=== PATIENT | female | born 1965 | race Caucasian/White ===

== ENCOUNTER 2019-10-21 00:23 | Inpatient (IN) | payer MEDICAID, OTHER ==
[~2019-10-21] VITALS: Ht 170.2 cm; Wt 100.5 kg
[2019-10-21] VITALS (19 sets, daily range): BP systolic 110–136; BP diastolic 73–91
[2019-10-21] MEDS ORDERED: LACTATED RINGERS 1,000 ML IV ONE (00:41)
--- NOTE | 2019-10-21 00:41 | ED Chest Pain ---
General Chief Complaint: Chest Pain Stated Complaint: JAW, HEAD, CP Nursing Triage Note: PT AMBULATE TO ROOM 07 WITH C/O CHEST PAIN STARTING X3 DAYS AGO, HEADACHE STARTING X3 WEEKS AGO. PT STATES THE HEADACHE HAS PROGRESSED TO HER CHEST. Nursing Sepsis Screen: No Definite Risk Source: patient Exam Limitations: no limitations History of Present Illness Date Seen by Provider: Oct 21, 2019 Time Seen by Provider: 00:21 Initial Comments Patient presents to ER by private conveyance with chief complaint of several weeks of having a global, constant headache that has poorly responded Tylenol or NSAIDs. She says in the past 2 days she started having pain in her jaw shoulder neck and back as well as chest. She's had a productive cough and chills but has not checked for an objective fever. She's not had any diarrhea nausea or vomiting. She has a history of hypertension but no diabetes or hyperlipidemia. She is on Rexulti and does not recall the rest of her medications or medical history. She has not seen anybody for this headache or chest pain yet. She f [facility] with [facility]. Allergies and Home Medications Allergies Coded Allergies: No Known Drug Allergies (Unverified , 10/21/19) Patient Home Medication List Home Medication List Reviewed: Yes Review of Systems Review of Systems Constitutional: chills; No diaphoresis, No fever; malaise EENTM: No Blurred Vision, No Double Vision Respiratory: Cough; Denies Shortness of Air Cardiovascular: See HPI, Chest Pain; Denies Edema, Denies Irregular Heart Rate, Denies Lightheadedness, Denies Palpitations, Denies Syncope Gastrointestinal: Denies Abdomen Distended, Denies Abdominal Pain, Denies Constipated, Denies Diarrhea, Denies Nausea, Denies Poor Fluid Intake, Denies Vomiting Genitourinary: Denies Burning, Denies Discharge Musculoskeletal: No back pain, No joint pain Skin: No pruritus, No rash Psychiatric/Neurological: Emotional Problems, Headache; Denies Numbness, Denies Paresthesia, Denies Seizure All Other Systems Reviewed Negative Unless Noted: Yes Past Qzoevvv-Avprbu-Hrtdpc Hx Patient Social History Alcohol Use: Denies Use Recreational Drug Use: No Smoking Status: Current Everyday Smoker Type Used: Cigarettes Recent Foreign Travel: No Contact w/Someone Who Travel: No Recent Infectious Disease Expo: No Physical Exam Vital Signs Vital Signs - First Documented 10/21/19 00:26 Temp 36.8 Pulse 113 Resp 24 B/P (MAP) 145/94 (111) O2 Delivery Room Air Capillary Refill : Less Than 3 Seconds Height, Weight, BMI Height: '" Weight: lbs. oz. kg; 31.00 BMI Method: General Appearance: Anxious, Mild Distress HEENT: PERRL/EOMI, TMs Normal; No Moist Mucous Membranes Neck: Full Range of Motion, Normal Inspection, Non Tender, Supple Respiratory: Chest Non Tender, Lungs Clear, Normal Breath Sounds, No Accessory Muscle Use, No Respiratory Distress Cardiovascular: Regular Rate, Rhythm, No Edema, No Gallop, Normal Peripheral Pulses Gastrointestinal: Normal Bowel Sounds, No Organomegaly, Non Tender, Soft Extremity: Normal Capillary Refill, Normal Inspection, Normal Range of Motion, No Pedal Edema Neurologic/Psychiatric: Alert, Oriented x3, No Motor/Sensory Deficits, Normal Mood/Affect, advertising director II-XII Norm as Tested Skin: Normal Color, Warm/Dry Progress/Results/Core Measures Results/Orders Lab Results Laboratory Tests Test 10/21/19 00:37 10/21/19 01:02 Range/Units White Blood Count 17.4 H 4.3-11.0 10^3/uL Red Blood Count 4.38 4.35-5.85 10^6/uL Hemoglobin 12.9 11.5-16.0 G/DL Hematocrit 41 35-52 % Mean Corpuscular Volume 94 80-99 FL Mean Corpuscular Hemoglobin 30 25-34 PG Mean Corpuscular Hemoglobin Concent 32 32-36 G/DL Red Cell Distribution Width 14.2 10.0-14.5 % Platelet Count 481 H 130-400 10^3/uL Mean Platelet Volume 9.3 7.4-10.4 FL Neutrophils (%) (Auto) 79 H 42-75 % Lymphocytes (%) (Auto) 11 L 12-44 % Monocytes (%) (Auto) 7 0-12 % Eosinophils (%) (Auto) 3 0-10 % Basophils (%) (Auto) 1 0-10 % Neutrophils # (Auto) 13.7 H 1.8-7.8 X 10^3 Lymphocytes # (Auto) 1.8 1.0-4.0 X 10^3 Monocytes # (Auto) 1.2 H 0.0-1.0 X 10^3 Eosinophils # (Auto) 0.5 H 0.0-0.3 10^3/uL Basophils # (Auto) 0.1 0.0-0.1 10^3/uL Neutrophils % (Manual) 81 % Lymphocytes % (Manual) 9 % Monocytes % (Manual) 8 % Eosinophils % (Manual) 2 % Prothrombin Time 12.6 12.2-14.7 SEC INR Comment 0.9 0.8-1.4 Activated Partial Thromboplast Time 26 24-35 SEC Sodium Level 140 135-145 MMOL/L Potassium Level 4.4 3.6-5.0 MMOL/L Chloride Level 105 98-107 MMOL/L Carbon Dioxide Level 21 21-32 MMOL/L Anion Gap 14 5-14 MMOL/L Blood Urea Nitrogen 11 7-18 MG/DL Creatinine 0.90 0.60-1.30 MG/DL Estimat Glomerular Filtration Rate > 60 BUN/Creatinine Ratio 12 Glucose Level 127 H 70-105 MG/DL Calcium Level 9.0 8.5-10.1 MG/DL Corrected Calcium 9.2 8.5-10.1 MG/DL Magnesium Level 2.1 1.6-2.4 MG/DL Total Bilirubin 0.3 0.1-1.0 MG/DL Aspartate Amino Transf (AST/SGOT) 15 5-34 U/L Alanine Aminotransferase (ALT/SGPT) 19 0-55 U/L Alkaline Phosphatase 71 40-136 U/L Myoglobin 68.4 10.0-92.0 NG/ML Troponin I 1.627 *H <0.028 NG/ML Total Protein 7.0 6.4-8.2 GM/DL Albumin 3.7 3.2-4.5 GM/DL My Orders Orders - JENNIFER STEPHENSON Ekg Tracing (10/21/19 00:25) Continuous Ekg Monitoring (10/21/19 00:25) Ed Iv/Invasive Line Start (10/21/19 00:41) Lactated Ringers (Lr 1000 Ml Iv Solution (10/21/19 00:41) Diphenhydramine Injection (Benadryl Inje (10/21/19 00:45) Prochlorperazine Injection (Compazine In (10/21/19 00:45) Aspirin Chewable Tablet (Baby Aspirin Ch (10/21/19 00:45) Cbc With Automated Diff (10/21/19 00:41) Magnesium (10/21/19 00:41) Chest 1 View, Ap/Pa Only (10/21/19 00:41) Comprehensive Metabolic Panel (10/21/19 00:41) Myoglobin Serum (10/21/19 00:41) Protime With Inr (10/21/19 00:41) Partial Thromboplastin Time (10/21/19 00:41) O2 (10/21/19 00:41) Monitor-Rhythm Ecg Trace Only (10/21/19 00:41) Lipid Panel (10/22/19 06:00) Ed Iv/Invasive Line Start (10/21/19 00:41) Influenza A And B Antigens (10/21/19 00:51) Manual Differential (10/21/19 00:37) Troponin I (10/21/19 01:02) Fentanyl Injection (Sublimaze Injection (10/21/19 01:15) Enoxaparin Injection (Lovenox Injection) (10/21/19 01:45) Clopidogrel Tablet (Plavix Tablet) (10/21/19 01:45) Nitroglycerin 0.4 Mg Btl 25's (Nitrostat (10/21/19 02:00) Lorazepam Injection (Ativan Injection) (10/21/19 02:00) Medications Given in ED Current Medications Medications Dose Ordered Sig/Elaina Route Start Time Stop Time Status Last Admin Dose Admin Aspirin 324 mg ONCE ONCE PO 10/21/19 00:45 10/21/19 00:46 DC 10/21/19 00:52 324 MG Clopidogrel Bisulfate 300 mg ONCE ONCE PO 10/21/19 01:45 10/21/19 01:46 DC 10/21/19 01:58 300 MG Diphenhydramine HCl 25 mg ONCE ONCE IVP 10/21/19 00:45 10/21/19 00:46 DC 10/21/19 00:52 25 MG Enoxaparin Sodium 90 mg ONCE ONCE SC 10/21/19 01:45 10/21/19 01:46 DC 10/21/19 01:57 90 MG Fentanyl Citrate 50 mcg ONCE ONCE IVP 10/21/19 01:15 10/21/19 01:16 DC 10/21/19 01:21 50 MCG Lactated Ringer's 1,000 ml @ 0 mls/hr Q0M ONCE IV 1/6/20 00:41 10/21/19 00:46 DC 10/21/19 00:53 999 MLS/HR Prochlorperazine Edisylate 10 mg ONCE ONCE IV 10/21/19 00:45 10/21/19 00:46 DC 10/21/19 00:52 10 MG Vital Signs/I&O 10/21/19 10/21/19 00:26 00:31 Temp 36.8 Pulse 113 Resp 24 B/P (MAP) 145/94 (111) O2 Delivery Room Air Room Air Blood Pressure Mean: 111 Progress Progress Note : Time: 00:46 Progress Note Influenza swab as she seems to have pain everywhere. We'll give her a liter fluids, Compazine, Benadryl for her headache. We'll hold off on NSAIDs until we see a negative troponin. EKG is normal with tachycardia. 2 days of chest pain if she has a negative troponin and no history of coronary disease can plan to give some Toradol. Suspects she has a viral illness and poor fluid intake. No headache red flag signs at this time. Initial ECG Impression Date: Oct 21, 2019 Initial ECG Impression Time: 00:28 Initial ECG Rate: 105 Initial ECG Rhythm: S.Tach Initial ECG Intervals: Normal Initial ECG Impression: Normal Initial ECG Comparisson: No Previous ECG Available Comment Sinus tachycardia without clinically relevant ST elevation or depression. Diagnostic Imaging Diagonstic Imaging: Xray Plain Films/CT/US/NM/MRI: chest (1v) Comments Unremarkable one view chest x-ray. Reviewed: Reviewed by Me Departure Communication (Admissions) Time/Spoke to Admitting Phy: 01:48 Discussed case lab EKG imaging findings with Dr. Cintron and she agrees to observe the patient. Time/Spoke to Consulting Phy: 01:45 Discussed case lab imaging findings with Dr. Cortez and he would do Plavix, aspirin and one time dose of Lovenox and he will see the patient in the morning. Impression Primary Impression: Non-STEMI (non-ST elevated myocardial infarction) Additional Impression: Headache Qualified Codes: R51 - Headache Disposition: ADMITTED INPATIENT Condition: Stable Admissions Decision to Admit Reason: Admit from ER (General) Decision to Admit/Date: Oct 21, 2019 Time/Decision to Admit Time: 01:45 Departure-Patient Inst. Referrals: [facility] (PCP/Family) Primary Care Physician JENNIFER STEPHENSON Oct 21, 2019 00:41
[2019-10-21] MEDS ORDERED: ASPIRIN 81 MG CHEW (CHILDREN'S ASA) PO ONE (00:45)
[2019-10-21] MEDS ORDERED: PROCHLORPERAZINE 10 MG/2ML INJ (COMPAZINE) IV ONE (00:45)
[2019-10-21] MEDS ORDERED: diphenhydrAMINE 50 MG/ML INJ (BENADRYL) IVP ONE (00:45)
[2019-10-21 00:51] LABS: BASOPHILS # (AUTO) 0.1 10^3/uL (0.0-0.1); BASOPHILS % (AUTO) 1 % (0-10); EOSINOPHILS # (AUTO) 0.5 10^3/uL (0.0-0.3); EOSINOPHILS % (AUTO) 3 % (0-10); HEMATOCRIT 41 % (35-52); HEMOGLOBIN 12.9 G/DL (11.5-16.0); LYMPHOCYTES # (AUTO) 1.8 X 10^3 (1.0-4.0); LYMPHOCYTES % (AUTO) 11 % (12-44); MEAN CORPUSCULAR HEMOGLOBIN 30 PG (25-34); MEAN CORPUSCULAR HGB CONC 32 G/DL (32-36); MEAN CORPUSCULAR VOLUME 94 FL (80-99); MEAN PLATELET VOLUME 9.3 FL (7.4-10.4); MONOCYTES # (AUTO) 1.2 X 10^3 (0.0-1.0); MONOCYTES % (AUTO) 7 % (0-12); NEUTROPHILS # (AUTO) 13.7 X 10^3 (1.8-7.8); NEUTROPHILS % (AUTO) 79 % (42-75); PLATELET COUNT 481 10^3/uL (130-400); RED CELL DISTRIBUTION WIDTH 14.2 % (10.0-14.5); WHITE BLOOD COUNT 17.4 10^3/uL (4.3-11.0)
[2019-10-21] MEDS ORDERED: fentaNYL INJECTION 100 MCG/2 ML AMP IVP ONE ×2 (01:15→02:30)
[2019-10-21 01:18] LABS: INR 0.9 (0.8-1.4); PROTHROMBIN TIME PATIENT 12.6 SEC (12.2-14.7)
[2019-10-21 01:27] LABS: ALANINE AMINOTRANSFERASE 19 U/L (0-55); ALBUMIN 3.7 GM/DL (3.2-4.5); ALKALINE PHOSPHATASE 71 U/L (40-136); BILIRUBIN,TOTAL 0.3 MG/DL (0.1-1.0); BUN/CREATININE RATIO 12; CARBON DIOXIDE 21 MMOL/L (21-32); CHLORIDE 105 MMOL/L (98-107); GFR ESTIMATED > 60; GLUCOSE 127 MG/DL (70-105); MAGNESIUM 2.1 MG/DL (1.6-2.4); POTASSIUM 4.4 MMOL/L (3.6-5.0); SODIUM 140 MMOL/L (135-145)
[2019-10-21] MEDS ORDERED: CLOPIDOGREL 300 MG (PLAVIX) TABLET PO ONE (01:45)
[2019-10-21] MEDS ORDERED: ENOXAPARIN 100 MG/1 ML (LOVENOX) SYR SC ONE (01:45)
[2019-10-21 01:51] LABS: EOSINOPHILS % (MANUAL) 2 %; LYMPHOCYTES % (MANUAL) 9 %; MONOCYTES % (MANUAL) 8 %; NEUTROPHILS % (MANUAL) 81 %
[2019-10-21] MEDS ORDERED: LORazepam INJ 2 MG/ML (ATIVAN) VIAL IVP ONE (02:00)
[2019-10-21] MEDS ORDERED: NITROGLYCERIN 0.4 MG SL TABS BTL 25'S SL PRN ×2 (02:00→05:00)
[2019-10-21] MEDS: fentaNYL INJECTION 100 MCG/2 ML AMP IVP PRN ×4 (03:59→13:17)
[2019-10-21] MEDS: LACTATED RINGERS 1,000 ML IV SCH ×3 (03:59→21:25)
[2019-10-21 04:00] LABS: BASOPHILS # (AUTO) 0.1 10^3/uL (0.0-0.1); BASOPHILS % (AUTO) 0 % (0-10); EOSINOPHILS # (AUTO) 0.5 10^3/uL (0.0-0.3); EOSINOPHILS % (AUTO) 3 % (0-10); HEMATOCRIT 40 % (35-52); HEMOGLOBIN 12.5 G/DL (11.5-16.0); LYMPHOCYTES # (AUTO) 1.9 X 10^3 (1.0-4.0); LYMPHOCYTES % (AUTO) 13 % (12-44); MEAN CORPUSCULAR HEMOGLOBIN 30 PG (25-34); MEAN CORPUSCULAR HGB CONC 31 G/DL (32-36); MEAN CORPUSCULAR VOLUME 96 FL (80-99); MEAN PLATELET VOLUME 9.1 FL (7.4-10.4); MONOCYTES % (AUTO) 7 % (0-12); NEUTROPHILS # (AUTO) 11.5 X 10^3 (1.8-7.8); NEUTROPHILS % (AUTO) 77 % (42-75); PLATELET COUNT 432 10^3/uL (130-400); RED CELL DISTRIBUTION WIDTH 14.3 % (10.0-14.5)
[2019-10-21 04:23] LABS: ALANINE AMINOTRANSFERASE 18 U/L (0-55); ALBUMIN 3.6 GM/DL (3.2-4.5); ALKALINE PHOSPHATASE 69 U/L (40-136); BILIRUBIN,TOTAL 0.3 MG/DL (0.1-1.0); BUN/CREATININE RATIO 12; CALCIUM 9.1 MG/DL (8.5-10.1); CARBON DIOXIDE 22 MMOL/L (21-32); CHLORIDE 108 MMOL/L (98-107); CREATININE SERUM 0.83 MG/DL (0.60-1.30); GFR ESTIMATED > 60; GLUCOSE 114 MG/DL (70-105); POTASSIUM 4.7 MMOL/L (3.6-5.0); SODIUM 142 MMOL/L (135-145); TOTAL PROTEIN 6.7 GM/DL (6.4-8.2)
[2019-10-21] MEDS ORDERED: ANTACID SUSP 30 ML UDC (MYLANTA) PO PRN (05:00)
[2019-10-21] MEDS ORDERED: ONDANSETRON 4 MG/2 ML (SDV) Z0FRAN IV PRN (05:00)
[2019-10-21] MEDS ORDERED: LORazepam INJ 2 MG/ML (ATIVAN) VIAL IV PRN (05:00)
--- NOTE | 2019-10-21 05:28 | Diagnostic Imaging Report ---
INDICATION: Headache. Chest pain. COMPARISON: None FINDINGS: Single frontal view of the chest demonstrates normal heart size and pulmonary vascularity. The lungs are well aerated and clear. No large pleural effusion or pneumothorax is seen. The visualized osseous structures show no acute abnormalities. IMPRESSION: 1. No acute cardiopulmonary process. Dictated by: Dictated on workstation # [id number]
[2019-10-21] MEDS: ASPIRIN E.C. 81 MG (ECOTRIN) TAB PO SCH (08:40)
--- NOTE | 2019-10-21 08:58 | NUR ---
UPON ASSESSMENT, THIS RN NOTICED PUPILS UNEQUAL. NO NEURO CHANGES NOTED. PT TELLS THIS RN THAT SHE HAS HAD UNEQUAL PUPILS " LONG I CAN REMEMBER". PT DOES HAVE 3 WEEK HISTORY OF DIETZ. NO HEAD CT NOTED IN CHART. NOTIFIED DR OROZCO, HER ORDERS WERE TO CALL STROKE TEAM. TRAFFIC OFFICER NOTIFIED AND RESPONDED. PT TAKEN TO CT SCAN. NIH 0. OTHER THAN DIETZ PT HAS NO OTHER COMPLAINTS. MONITORING HER CLOSELY.
--- NOTE | 2019-10-21 09:30 | Diagnostic Imaging Report ---
PROCEDURE: CT head without contrast. TECHNIQUE: Multiple contiguous axial images were obtained through the brain without the use of intravenous contrast. Auto Exposure Controls were utilized during the CT exam to meet ALARA standards for radiation dose reduction. All CT scans use one or more of the following dose optimizing techniques: automated exposure control, MA and/or KvP adjustment based on a patient size and exam type, or iterative reconstruction. INDICATION: Unequal pupils. No prior studies are available for comparison. FINDINGS: The ventricles and sulci are within normal limits. No sulcal effacement or midline shift is detected. No acute intra-axial or extra-axial hemorrhage is detected. Cisterns are patent. Visualized paranasal sinuses are clear. IMPRESSION: No acute intracranial process is detected. Dictated by: Dictated on workstation # [id number]
[2019-10-21] MEDS ORDERED: LISI10TA2 PO (09:36)
[2019-10-21] MEDS ORDERED: CLON0.5T13 PO ×2 (09:36→09:55)
[2019-10-21] MEDS ORDERED: LAMO150T2 PO (09:36)
[2019-10-21] MEDS ORDERED: VALA500T PO (09:36)
[2019-10-21] MEDS ORDERED: FLUT16SP22 NS (09:36)
[2019-10-21] MEDS ORDERED: AMOX500C2 PO (09:36)
[2019-10-21] MEDS ORDERED: NAPR-915 PO (09:36)
[2019-10-21] MEDS ORDERED: CITA40TA11 PO (09:36)
[2019-10-21] MEDS ORDERED: IBUP-30 PO (09:55)
[2019-10-21] MEDS ORDERED: BREX3TAB PO (09:55)
--- NOTE | 2019-10-21 10:04 | NUR ---
SPOKE WITH THE PATIENT ABOUT HER MEDICATIONS. WE WENT OVER THE EXT MED HX AND SHE VERIFIED HOW SHE TAKES THEM. SHE STATES SHE GETS REXULTI THROUGH PALS, I VERIFIED WITH RICKY AT [facility] THAT SHE RECEIVES REXULTI 3MG ONCE DAILY. SHE STATES SHE TAKES IBU PRN OTC.
[2019-10-21] MEDS ORDERED: LIDOCAINE 1% INJ 20 ML 20 ML VIAL ONE (10:08)
[2019-10-21] MEDS ORDERED: NS IV 1000 ML 2,000 ML ONE (10:08)
[2019-10-21] MEDS ORDERED: HEParin 1000 UNIT/ML (10ML VIAL) FOR BOLUS ONE (10:08)
[2019-10-21] MEDS ORDERED: fentaNYL INJECTION 100 MCG/2 ML AMP ONE (10:30)
[2019-10-21] MEDS ORDERED: MIDAZOLAM 5 MG/5 ML (VERSED) VIAL ONE (10:30)
[2019-10-21] MEDS: NS IV 1000 ML 1,000 ML IV SCH ×4 (11:29→22:17)
--- NOTE | 2019-10-21 11:54 | Consultation-Cardiology ---
HPI-Cardiology Cardiology Consultation: Date of Consultation 10/21/19 Date of Admission Attending Physician Jami Costa MD Admitting Physician [facility] Consulting Physician Alberto CORTEZ MD HPI: Time Seen by a Provider: 10:30 Chief Complaint: Chest pain This is a 54-year-old lady who has history of active smoking and family history of premature CAD in the mother. She has history of hypertension but denies diabetes or hyperlipidemia. She presents with severe chest pain overnight. However she's been having some chest discomfort in the last 2-3 days. Severe c hest pain last night 10/10 intensity. Radiating to the jaw. She describes that as somebody sitting on the chest. No exacerbating or relieving factors. First troponin was positive but second was negative, unclear to me why. However we give aspirin, Plavix and a dose of Lovenox last night. When I saw the patient she was not having any further chest pain. She denies any other cardiac symptoms. Specifically she denies shortness of breath, palpitation, syncope, near-syncope. Review of Systems-Cardiology Review of Systems Constitutional: As described under HPI; No As described under HPI, No no symptoms reported, No chills, No fever, No lightheadedness Eyes: No As described under HPI, No no symptoms reported, No blindness, No blurred vision, No contact lenses, No drainage, No decreased acuity, No foreign body sensation, No pain, No vision change Ears/Nose/Throat: No As described under HPI, No no symptoms reported, No ch ronic hearing loss, No ear discharge, No ear pain, No nasal drainage, No ulcerations Respiratory: No no symptoms reported; As described under HPI; No As described under HPI, No cough, No orthopnea, No shortness of breath, No SOB with excertion Cardiovascular: No no symptoms reported; As described under HPI; No As described under HPI; chest pain; No edema, No irregular heart rate, No lightheadedness, No palpitations Gastrointestinal: No no symptoms reported, No As described under HPI, No abdomen distended, No abdominal pain, No blood streaked bowels, No constipation, No diarrhea, No nausea, No vomiting, No stool coloration changes Genitourinary: No As described under HPI, No burning, No dysuria, No discharge, No frequency, No flank pain, No hematuria, No urgency : Yes : No Skin: No rash, No skin related problems, No ulcerations Psychiatric/Neurological: No anxiety, No depression, No seizure, No focal weakness, No syncope Hematologic: No bleeding abnormalities All Other Systems Reviewed Negative Unless Noted: Yes BYC-Tkaptb-Kdtavu Hx Patient Social History Alcohol Use: Denies Use Recreational Drug Use: No Smoking Status: Current Everyday Smoker Type Used: Cigarettes 2nd Hand Smoke Exposure: No Recent Foreign Travel: No Recent Infectious Disease Expo: No Hospitalization with Isolation: Denies Past Medical History PMH As described under Assessment. Allergies and Home Medications Allergies Coded Allergies: No Known Drug Allergies (Unverified , 10/21/19) Home Medications Amoxicillin 500 Mg Capsule, 500 MG PO BID, (Reported) 10 DAY SUPPLY FILLED 10-13-19 Brexpiprazole 3 Mg Tablet, 3 MG PO DAILY, (Reported) Citalopram Hydrobromide 40 Mg Tablet, 40 MG PO DAILY, (Reported) Clonazepam 0.5 Mg Tablet, 0.5 MG PO BID, (Reported) Clonazepam 0.5 Mg Tablet, 0.25 MG PO 1200, (Reported) TAKES 1/2 (0.5MG) TABLET Fluticasone Propionate 16 Gm [place].susp, 2 SPRAY NS DAILY, (Reported) Ibuprofen 200 Mg Tablet, 400 MG PO TID PRN for PAIN-MILD (1-4), (Reported) Lamotrigine 150 Mg Tablet, 150 MG PO HS, (Reported) Lisinopril 10 Mg Tablet, 10 MG PO DAILY, (Reported) Naproxen 500 Mg Tablet, 500 MG PO BID PRN for PAIN-MILD (1-4), (Reported) Valacyclovir HCl 500 Mg Tablet, 500 MG PO BID, (Reported) 15 DAY SUPPLY FILLED 10-08-19 Patient Home Medication List Home Medication List Reviewed: Yes Physical Exam-Cardiology Physical Exam Vital Signs/I&O 10/21/19 10/21/19 10/21/19 10/21/19 00:26 00:31 02:39 02:45 Temp 36.8 36.9 36.2 Pulse 113 89 90 Resp 24 20 18 B/P (MAP) 145/94 (111) 150/99 117/74 (88) Pulse Ox 96 98 O2 Delivery Room Air Room Air Room Air Room Air 10/21/19 10/21/19 10/21/19 10/21/19 02:56 02:59 03:00 03:06 Temp 36.2 Pulse 91 90 91 Resp 18 16 B/P (MAP) 117/74 112/73 (86) Pulse Ox 98 96 93 O2 Delivery Room Air Room Air Room Air 10/21/19 10/21/19 10/21/19 10/21/19 03:15 03:30 03:45 04:00 Pulse 90 94 84 Resp 18 16 18 B/P (MAP) 117/76 (90) 112/75 (87) 113/78 (90) Pulse Ox 97 94 97 O2 Delivery Room Air Room Air Room Air Room Air 10/21/19 10/21/19 10/21/19 10/21/19 04:00 05:00 06:00 07:00 Pulse 87 89 90 92 Resp 16 18 18 B/P (MAP) 111/77 (88) 114/79 (91) 110/74 (86) Pulse Ox 96 94 93 O2 Delivery Room Air Room Air Room Air 10/21/19 10/21/19 07:24 08:48 Temp 36.2 Pulse 92 Resp 18 B/P (MAP) 131/91 (104) Pulse Ox 97 O2 Delivery Room Air Capillary Refill : Less Than 3 Seconds Constitutional: appears stated age, AAO x 3; No apparent distress; well- developed, well-nourished HEENT: PERRL; No discharge; hearing is well preserved, oral hygience is good; No ulceration, No xanthelasmas are seen Neck: No carotid bruit; carotid pulses are 2 + bilaterally Respiratory: No accessory muscle use, No respiratory distress, No chest tender; chest expansion is symmetric, chest is bilaterally symmetric, lungs clear to percussion, lungs clear to auscultation, crackles; No rhonchi, No rales, No stridor, No wheezing, No pleural rub, No other Cardiovascular: regular rate-rhythm; No irregularly irregular, No extra beats, No parasternal heave is noted, No JVD, No edema, No bradycardia, No tachycardia, No point of maximal impulse, No cardiac thrills are palpable; S1 and S2; No gallop/S3, No gallop/S4, No diastolic murmur, No systolic murmur, No friction rub, No click, No other Gastrointestinal: soft, audible bowel sounds; No spleenomegaly Rectal: deferred Extremities: normal range of motion, non-tender, normal inspection; No clubbing, No cyanosis; no lower extremity edema bilateral; No significant edema Neurologic/Psychiatric: no motor/sensory deficits, alert, normal mood/affect, oriented x 3, power is 5/5 both on sides Skin: normal color, warm/dry; No rash, No ulcerations Data Review Labs Laboratory Tests 10/21/19 00:37: White Blood Count 17.4H, Red Blood Count 4.38, Hemoglobin 12.9, Hematocrit 41, Mean Corpuscular Volume 94, Mean Corpuscular Hemoglobin 30, Mean Corpuscular Hemoglobin Concent 32, Red Cell Distribution Width 14.2, Platelet Count 481H, Mean Platelet Volume 9.3, Neutrophils (%) (Auto) 79H, Lymphocytes (%) (Auto) 11L , Monocytes (%) (Auto) 7, Eosinophils (%) (Auto) 3, Basophils (%) (Auto) 1, Neutrophils # (Auto) 13.7H, Lymphocytes # (Auto) 1.8, Monocytes # (Auto) 1.2H, Eosinophils # (Auto) 0.5H, Basophils # (Auto) 0.1, Neutrophils % (Manual) 81, Lymphocytes % (Manual) 9, Monocytes % (Manual) 8, Eosinophils % (Manual) 2 10/21/19 01:02: Prothrombin Time 12.6, INR Comment 0.9, Activated Partial Thromboplast Time 26, Sodium Level 140, Potassium Level 4.4, Chloride Level 105, Carbon Dioxide Level 21, Anion Gap 14, Blood Urea Nitrogen 11, Creatinine 0.90, Estimat Glomerular Filtration Rate > 60, BUN/Creatinine Ratio 12, Glucose Level 127H, Calcium Level 9.0, Corrected Calcium 9.2, Magnesium Level 2.1, Total Bilirubin 0.3, Aspartate Amino Transf (AST/SGOT) 15, Alanine Aminotransferase (ALT/SGPT) 19, Alkaline Phosphatase 71, Myoglobin 68.4, Troponin I 1.627*H, Total Protein 7.0, Albumin 3.7 10/21/19 03:54: White Blood Count 15.0H, Red Blood Count 4.18L, Hemoglobin 12.5, Hematocrit 40, Mean Corpuscular Volume 96, Mean Corpuscular Hemoglobin 30, Mean Corpuscular Hemoglobin Concent 31L, Red Cell Distribution Width 14.3, Platelet Count 432H, Mean Platelet Volume 9.1, Neutrophils (%) (Auto) 77H, Lymphocytes (%) (Auto) 13, Monocytes (%) (Auto) 7, Eosinophils (%) (Auto) 3, Basophils (%) (Auto) 0, Neutrophils # (Auto) 11.5H, Lymphocytes # (Auto) 1.9, Monocytes # (Auto) 1.0, Eosinophils # (Auto) 0.5H, Basophils # (Auto) 0.1, Sodium Level 142, Potassium Level 4.7, Chloride Level 108H, Carbon Dioxide Level 22, Anion Gap 12, Blood Urea Nitrogen 10, Creatinine 0.83, Estimat Glomerular Filtration Rate > 60, BUN/Creatinine Ratio 12, Glucose Level 114H, Calcium Level 9.1, Corrected Calcium 9.4, Total Bilirubin 0.3, Aspartate Amino Transf (AST/SGOT) 18, Alanine Aminotransferase (ALT/SGPT) 18, Alkaline Phosphatase 69, Total Protein 6.7, Albumin 3.6 10/21/19 06:58: Troponin I < 0.028 10/21/19 09:05: Glucometer 105 Microbiology 10/21/19 Influenza Types A,B Antigen (SHAYLA) - Final, Complete ECG Impression ECG Initial ECG Rhythm: Normal Sinus Initial ECG Impression: Normal A/P-Cardiology Assessment/Admission Diagnosis Chest pain, positive troponin, Leukocytosis, Active smoking, Hypertension Plan Chest pain, positive troponin, aspirin, Plavix, Lovenox last night. Coronary angiography today. Informed consent was taken. Leukocytosis, unclear etiology. If coronary angiography does not show significant CAD, we should consider myopericarditis. Active smoking, smoking cessation was strongly recommended. Hypertension,Lisinopril. Thank you for your consultation. Please call me if you have any questions. Jerman Cortez MD, FACP, FACC, FSCAI, FHRS, CCDS Interventional Cardiology Cardiac Electrophysiology Vascular Medicine and Endovascular Interventions Clinical Quality Measures AMI/AHF: ASA po Prior to arrival: No DVT/VTE Risk/Contraindication: Risk Factor Score Per Nursin RFS Level Per Nursing on Admit: 4+=Very High Alberto CORTEZ MD Oct 21, 2019 11:54
--- NOTE | 2019-10-21 11:56 | Cardiac Procedure Note-CS/ASA ---
Pre-Procedure Note Pre-Op Procedure Note H&P Reviewed The H&P was reviewed, patient examined and no changes noted. Date H&P Reviewed: Oct 21, 2019 Time H&P Reviewed: 11:00 Conscious Sedation Pre-Proced Time 11:00 ASA Score 3 For ASA 3 and 4: Consider anesthesia and medical clearance. Also, for patients with a history of failed moderate sedation consider anesthesia. Airway Lungs Heart ASA score ASA 1: a normal healthy patient ASA 2: a patient with a mild systemic disease (mid diabetes, controlled hypertension, obesity ASA 3: a patient with a severe systemic disease that limits activity (angina, COPD, prior Myocardial infarction) ASA 4: a patient with an incapacitating disease that is a constant threat to life (CHF, renal failure) ASA 5: a moribund patient not expected to survive 24 hrs. (ruptured aneurysm) ASA 6: a declared brain- patient whose organs are being harvested. For emergent operations, add the letter E after the classification Mallampati Classification Grade 1 Sedation Plan Analgesia, Amnesia, Plan communicated to team members, Discussed options with patient/fam, Discussed risks with patient/fam The patient is an appropriate candidate to undergo the planned procedure, sedation, and anesthesia. The patient immediately re-assessed prior to indication. Alberto NOVAK MD Oct 21, 2019 11:56
--- NOTE | 2019-10-21 11:59 | History & Physical ---
HPI History of Present Illness: 54 yo female came to ED due to crushing chest pain for 3 days, along with radiation to jaw and head. Pain felt like someone sitting on her, is improved with meds in ER but still present mildly. Her medical history includes smoking and hypertension, she denies any previous known cardiac issues, but her mother had heart issues when patient herself was "too young to know what they were". She has also had chills and sore throat for a week or so and was started on amoxicillin for an ear infection about a week ago. She admits shortness of breath, nausea and vomiting and diarrhea x about a month. This morning just prior to my exam, she noted a headache 7/10 and nurse noted unequal pupils without documented history (although patient reports they have been that way as long as she can remember and does not know why, but does have cataracts and a lot of "eye disease" and iritis history in left eye), so stroke team called, her NIH scale was [address] head draft is negative for acute process. Source: patient Date seen by provider: Oct 21, 2019 Time Seen by Provider: 09:35 Attending Physician Mike Costa MD PCP Center[place] [place] Consult Date of Admission Oct 21, 2019 at 09:00 Home Medications Home Medications Reviewed patient Home Medication Reconciliation performed by pharmacy medication reconciliations lighting technician and/or nursing. Patients Allergies have been reviewed. Allergies Coded Allergies: No Known Drug Allergies (Unverified , 10/21/19) IUW-Beaqfm-Gyhhow Hx Patient Social History Alcohol Use: Denies Use Recreational Drug Use: No Smoking Status: Current Everyday Smoker Type Used: Cigarettes 2nd Hand Smoke Exposure: No Recent Foreign Travel: No Contact w/other who traveled: No Recent Hopitalizations: No Recent Infectious Disease Expo: No Past Medical History PMHx: HTN Mood disorder Psoriasis Gestational diabetes SurgHx: Tonsillectomy Family Medical History Significant Family History: CAD Under 55 Years Old, Diabetes Review of Systems ([facility]C) Constitutional: chills EENTM: throat pain; No nose congestion Respiratory: cough, short of breath Cardiovascular: see HPI Gastrointestinal: No abdominal pain, No constipation; diarrhea, nausea, vomiting Genitourinary: No dysuria Musculoskeletal: joint pain (both hands) Skin: rash (psoriasis lesions) Psychiatric/Neurological: Anxiety Reviewed Test Results Reviewed Test Results Lab Laboratory Tests Test 10/21/19 00:37 10/21/19 01:02 10/21/19 03:54 10/21/19 06:58 Range/Units White Blood Count 17.4 H 15.0 H 4.3-11.0 10^3/uL Red Blood Count 4.38 4.18 L 4.35-5.85 10^6/uL Hemoglobin 12.9 12.5 11.5-16.0 G/DL Hematocrit 41 40 35-52 % Mean Corpuscular Volume 94 96 80-99 FL Mean Corpuscular Hemoglobin 30 30 25-34 PG Mean Corpuscular Hemoglobin Concent 32 31 L 32-36 G/DL Red Cell Distribution Width 14.2 14.3 10.0-14.5 % Platelet Count 481 H 432 H 130-400 10^3/uL Mean Platelet Volume 9.3 9.1 7.4-10.4 FL Neutrophils (%) (Auto) 79 H 77 H 42-75 % Lymphocytes (%) (Auto) 11 L 13 12-44 % Monocytes (%) (Auto) 7 7 0-12 % Eosinophils (%) (Auto) 3 3 0-10 % Basophils (%) (Auto) 1 0 0-10 % Neutrophils # (Auto) 13.7 H 11.5 H 1.8-7.8 X 10^3 Lymphocytes # (Auto) 1.8 1.9 1.0-4.0 X 10^3 Monocytes # (Auto) 1.2 H 1.0 0.0-1.0 X 10^3 Eosinophils # (Auto) 0.5 H 0.5 H 0.0-0.3 10^3/uL Basophils # (Auto) 0.1 0.1 0.0-0.1 10^3/uL Neutrophils % (Manual) 81 % Lymphocytes % (Manual) 9 % Monocytes % (Manual) 8 % Eosinophils % (Manual) 2 % Prothrombin Time 12.6 12.2-14.7 SEC INR Comment 0.9 0.8-1.4 Activated Partial Thromboplast Time 26 24-35 SEC Sodium Level 140 142 135-145 MMOL/L Potassium Level 4.4 4.7 3.6-5.0 MMOL/L Chloride Level 105 108 H 98-107 MMOL/L Carbon Dioxide Level 21 22 21-32 MMOL/L Anion Gap 14 12 5-14 MMOL/L Blood Urea Nitrogen 11 10 7-18 MG/DL Creatinine 0.90 0.83 0.60-1.30 MG/DL Estimat Glomerular Filtration Rate > 60 > 60 BUN/Creatinine Ratio 12 12 Glucose Level 127 H 114 H 70-105 MG/DL Calcium Level 9.0 9.1 8.5-10.1 MG/DL Corrected Calcium 9.2 9.4 8.5-10.1 MG/DL Magnesium Level 2.1 1.6-2.4 MG/DL Total Bilirubin 0.3 0.3 0.1-1.0 MG/DL Aspartate Amino Transf (AST/SGOT) 15 18 5-34 U/L Alanine Aminotransferase (ALT/SGPT) 19 18 0-55 U/L Alkaline Phosphatase 71 69 40-136 U/L Myoglobin 68.4 10.0-92.0 NG/ML Troponin I 1.627 *H < 0.028 <0.028 NG/ML Total Protein 7.0 6.7 6.4-8.2 GM/DL Albumin 3.7 3.6 3.2-4.5 GM/DL Test 10/21/19 09:05 Range/Units Glucometer 105 70-110 MG/DL Radiology CXR 10/[address] head 10/21 [facility] no acute process Physical Exam-(CHC) Physical Exam Vital Signs VS - Last 72 Hours, by Label 10/21/19 10/21/19 10/21/19 10/21/19 00:26 00:31 02:39 02:45 Temp 36.8 36.9 36.2 Pulse 113 89 90 Resp 24 20 18 B/P (MAP) 145/94 (111) 150/99 117/74 (88) Pulse Ox 96 98 O2 Delivery Room Air Room Air Room Air Room Air 10/21/19 10/21/19 10/21/19 10/21/19 02:56 02:59 03:00 03:06 Temp 36.2 Pulse 91 90 91 Resp 18 16 B/P (MAP) 117/74 112/73 (86) Pulse Ox 98 96 93 O2 Delivery Room Air Room Air Room Air 10/21/19 10/21/19 10/21/19 10/21/19 03:15 03:30 03:45 04:00 Pulse 90 94 84 Resp 18 16 18 B/P (MAP) 117/76 (90) 112/75 (87) 113/78 (90) Pulse Ox 97 94 97 O2 Delivery Room Air Room Air Room Air Room Air 10/21/19 10/21/19 10/21/19 10/21/19 04:00 05:00 06:00 07:00 Pulse 87 89 90 92 Resp 16 18 18 B/P (MAP) 111/77 (88) 114/79 (91) 110/74 (86) Pulse Ox 96 94 93 O2 Delivery Room Air Room Air Room Air 10/21/19 10/21/19 07:24 08:48 Temp 36.2 Pulse 92 Resp 18 B/P (MAP) 131/91 (104) Pulse Ox 97 O2 Delivery Room Air Capillary Refill : Less Than 3 Seconds General Appearance: WD/WN, no apparent distress Eyes: Bilateral Eye EOMI HEENT: other (right pupil signifiantly larger than left, both pupils react to light) Respiratory: lungs clear, normal breath sounds Cardiovascular: regular rate, rhythm, no edema, no murmur Gastrointestinal: normal bowel sounds Extremities: no pedal edema Neurologic/Psychiatric: scalder II-XII nml as tested (right pupil larger than left, but equally reactive), normal mood/affect Skin: normal color, warm/dry Assessment/Plan Assessment/Plan Admission Status: Inpatient Order (span 2 midnights) Reason for Inpatient Admission: NSTEMI (1) Non-STEMI (non-ST elevated myocardial infarction) Status: Acute Assessment & Plan: High troponin on admit, normal this am. Cardiology consulted, appreciate recommendations. On ASA. Continue home lisinopril. Nitro and morphine prn. (2) Leukocytosis Status: Acute Assessment & Plan: Suspect possibly related to upper respiratory infection/ear infection/sinusitis already diagnosed outpatient. CXR okay. Influenza swab negative. Completed 9 days of amoxicillin. (3) Thrombocytosis Assessment & Plan: Improving, suspect reactive, monitor. (4) Upper respiratory infection (5) Hypertension (6) Pupil diameter unequal Assessment & Plan: Apparently chronic, CT head with no acute findings. (7) Anxiety (8) DVT prophylaxis Assessment & Plan: Received 90 mg enoxaparin yesterday evening, resume anticoagulation after cardiac procedure when able. Clinical Quality Measures AMI/AHF: ASA po Prior to arrival: No DVT/VTE Risk/Contraindication: Risk Factor Score Per Nursin RFS Level Per Nursing on Admit: 4+=Very High MIKE COSTA MD Oct 21, 2019 11:59
--- NOTE | 2019-10-21 12:10 | Coronary Angiography Report ---
Coronary Angiography Report DATE OF PROCEDURE: 10/21/19 INDICATION: Chest pain, positive troponin. PREOPERATIVE DIAGNOSIS: Chest pain, positive troponin. POSTOPERATIVE DIAGNOSIS: Patent epicardial coronary arteries. HISTORY: This is a 54-year-old lady with active smoking and premature family history of CAD. She presented with chest pain and positive troponins. Therefore, the patient was scheduled for coronary angiography. PROCEDURES PERFORMED: 1.Coronary angiography. 2.Left heart catheterization. COMPLICATIONS: None. SPECIMENS: None. ESTIMATED BLOOD LOSS: 10 mL ANESTHESIA: Conscious sedation ANTICOAGULATION: IV heparin CONTRAST: 45 mL. FLUOROSCOPY: 2.5 minutes. FLOUROSCOPY DOSE: 443 mgy. PROCEDURE DETAILS: The patient is a 54 female and was brought to the [address] after informed consent was taken. All the risks and complications were explained in detail; this included the risk of bleeding, vascular damage, stroke, MD and even . The patient was draped and prepped in the usual sterile fashion. Access was gained in the right oral artery with a 5 [place] sheath. Coronary angiography and left heart catheterization was performed with a JR4 and JL4 catheter. FINDINGS: 1.Left main: Patent. 2.LAD: Patent. 3.Left circumflex artery: Patent. 4.RCA: Patent. 5.Left heart catheterization: LV pressure 104/16 mmHg. LVEDP 26 mmHg. Aortic pressure 104/66 mmHg. Normal LV function with no wall motion abnormalities. No gradient across the aortic valve. CONCLUSIONS: 1. Patent epicardial coronary arteries. 2. Chest pain, leukocytosis, positive troponin, differential diagnoses includes acute myopericarditis as well. Treatment will be with NSAIDs. 3. Smoking cessation was strongly recommended. Jerman Cortez MD, FACP, FACC, PSYCHIATRIC Interventional Cardiology Alberto CORTEZ MD Oct 21, 2019 12:10
[2019-10-21] MEDS ORDERED: PATIENT MAY USE OWN MEDS, ALL PO SCH (12:15)
[2019-10-21 13:07] LABS: CHOLESTEROL 120 MG/DL (< 200); HDL CHOLESTEROL 25 MG/DL (40-60); TRIGLYCERIDES 123 MG/DL (<150); VLDL CHOLESTEROL 25 MG/DL (5-40)
[2019-10-21] MEDS ORDERED: IOHEXOL 350 MG/ML 100 ML (OMNIPAQUE 350) VIAL IV ONE (15:00)
[2019-10-21] MEDS ORDERED: HOLD METFORMIN - RECEIVED CONTRAST 20 ML VIAL IV SCH (15:00)
[2019-10-21] MEDS ORDERED: NS 100 ML (IVPB) BAG IV ONE (15:00)
[2019-10-21] MEDS ORDERED: KETOROLAC 30 MG/ML VIAL ONE (16:08)
[2019-10-21] MEDS: ENOXAPARIN 40 MG/0.4 ML (LOVENOX) SYR SQ SCH (16:33)
--- NOTE | 2019-10-21 16:33 | Diagnostic Imaging Report ---
PROCEDURE: CT angiography of the chest with and without contrast. TECHNIQUE: Noncontrast CT of the chest was performed. Subsequently, after intravenous administration of contrast, thin section axial CT angiography of the chest was performed. 3D MIP reconstructions were made. Auto Exposure Controls were utilized during the CT exam to meet ALARA standards for radiation dose reduction. INDICATION: Chest pain, elevated troponin. COMPARISON: None available. FINDINGS: Aorta: Precontrast imaging shows no intramural hematoma. Postcontrast imaging demonstrates a normal-caliber thoracic aorta, and there are no features of dissection, pseudoaneurysm, or penetrating atherosclerotic ulcer. Pulmonary vasculature: Normal-caliber pulmonary trunk without features of pulmonary hypertension. No pulmonary emboli are present. No features of right ventricular strain. Heart and mediastinum: Heart is enlarged without pericardial effusion. No mediastinal or juxtaphrenic lymphadenopathy. There are bilateral mildly enlarged mediastinal lymph nodes which are likely reactive in nature. Pleura: No pleural effusion or pneumothorax. Lungs: No endoluminal nodule within the trachea. Smooth interlobular septal thickening is present throughout both lobes. There are scattered ground-glass nodules also present. Upper abdomen and bones: No concerning abnormality in the upper abdomen. No worrisome focal osseous lesions. IMPRESSION: 1. No aortic dissection or acute pulmonary emboli. 2. Interstitial and early alveolar pulmonary edema. 3. No pleural effusions. Dictated by: Dictated on workstation # [id number]
[2019-10-21] MEDS: ACETAMINOPHEN 500 MG TAB (TYLENOL) PO PRN (16:39)
[2019-10-21] MEDS: fentaNYL INJECTION 100 MCG/2 ML AMP IV PRN ×3 (18:58→23:08)
[2019-10-21] MEDS: clonazePAM 0.5 MG (KlonoPIN) TAB PO SCH (20:38)
[2019-10-21] MEDS ORDERED: IBUPROFEN TABLET 200 MG TAB PO ONE ×2 (20:48→21:00)
[2019-10-21] MEDS ORDERED: NON-FORMULARY MEDICATION 1 EA EA (Lamotrigine 150 MG) PO SCH (21:00)
[2019-10-22] VITALS (9 sets, daily range): BP systolic 90–122; BP diastolic 62–82
[2019-10-22] MEDS: ACETAMINOPHEN 500 MG TAB (TYLENOL) PO PRN ×3 (00:36→22:35)
[2019-10-22] MEDS: fentaNYL INJECTION 100 MCG/2 ML AMP IV PRN ×3 (01:11→06:12)
[2019-10-22] MEDS: NS IV 1000 ML 1,000 ML IV SCH ×3 (03:27→20:51)
[2019-10-22 03:30] LABS: HEMOGLOBIN 11.7 G/DL (11.5-16.0); RED CELL DISTRIBUTION WIDTH 14.1 % (10.0-14.5)
[2019-10-22 03:51] LABS: BUN/CREATININE RATIO 11; CALCIUM 8.4 MG/DL (8.5-10.1); CARBON DIOXIDE 22 MMOL/L (21-32); CHLORIDE 108 MMOL/L (98-107); CHOLESTEROL 121 MG/DL (< 200); CREATININE SERUM 0.75 MG/DL (0.60-1.30); GFR ESTIMATED > 60; GLUCOSE 106 MG/DL (70-105); HDL CHOLESTEROL 25 MG/DL (40-60); POTASSIUM 4.1 MMOL/L (3.6-5.0); SODIUM 140 MMOL/L (135-145); TRIGLYCERIDES 99 MG/DL (<150); VLDL CHOLESTEROL 20 MG/DL (5-40)
--- NOTE | 2019-10-22 05:57 | Pulmonary Consultation ---
History of Present Illness History of Present Illness Date Seen by Provider: Oct 22, 2019 Time Seen by Provider: 05:50 Date of Admission History of Present Illness 54yo with hx of tobacco use and HTN presented to ED secondary to CP radiating to jaw and head onset 3 days prior to admission. Pt was started on Amoxicillin for ear infection 1 wks prior. Pt also complains of neck pain. CT of head is negative. CT scan of chest shows pulmonary congestion. Allergies and Home Medications Allergies Coded Allergies: No Known Drug Allergies (Unverified , 10/21/19) Home Medications Amoxicillin 500 Mg Capsule, 500 MG PO BID, (Reported) 10 DAY SUPPLY FILLED 10-13-19 Brexpiprazole 3 Mg Tablet, 3 MG PO DAILY, (Reported) Citalopram Hydrobromide 40 Mg Tablet, 40 MG PO DAILY, (Reported) Clonazepam 0.5 Mg Tablet, 0.5 MG PO BID, (Reported) Clonazepam 0.5 Mg Tablet, 0.25 MG PO 1200, (Reported) TAKES 1/2 (0.5MG) TABLET Fluticasone Propionate 16 Gm Wilcox.susp, 2 SPRAY NS DAILY, (Reported) Ibuprofen 200 Mg Tablet, 400 MG PO TID PRN for PAIN-MILD (1-4), (Reported) Lamotrigine 150 Mg Tablet, 150 MG PO HS, (Reported) Lisinopril 10 Mg Tablet, 10 MG PO DAILY, (Reported) Naproxen 500 Mg Tablet, 500 MG PO BID PRN for PAIN-MILD (1-4), (Reported) Valacyclovir HCl 500 Mg Tablet, 500 MG PO BID, (Reported) 15 DAY SUPPLY FILLED 10-08-19 Past Hmyqzdb-Esotcv-Xadqyk Hx Patient Social History Alcohol Use: Denies Use Recreational Drug Use: No Smoking Status: Current Everyday Smoker Type Used: Cigarettes 2nd Hand Smoke Exposure: No Recent Foreign Travel: No Contact w/Someone Who Travel: No Recent Infectious Disease Expo: No Recent Hopitalizations: No Physical Abuse: No Sexual Abuse: No Mistreated: No Fear: No Seasonal Allergies Seasonal Allergies: No Past Medical History Surgeries: Yes Adenoidectomy, Tonsillectomy Respiratory: No Cardiac: Yes Hypertension Neurological: No : No Genitourinary: No Gastrointestinal: No Musculoskeletal: No Endocrine: No HEENT: Yes Cataract Loss of Vision: Denies Hearing Impairment: Denies Cancer: No Psychosocial: Yes Anxiety, Depression Integumentary: No Blood Disorders: No Family Medical History CAD Under 55 Years Old, Diabetes Review of Systems Time Seen by Provider: 06:00 Constitutional: Malaise; No: Fever, Chills, Sweats, Weakness, Other Eyes: No: Pain, Vision change, Conjunctivae inflammation, Eyelid inflammation, Other, Redness ENT: No: Ear pain, Ear discharge, Nose pain, Nose discharge, Nose congestion, Mouth pain, Mouth swelling, Throat pain, Throat swelling, Other Respiratory: Cough, Shortness of breath, Sputum; No: Dry, SOB with excertion, Wheezing, Hemoptysis, Pleuritic Pain, Wheezing, Other Cardiovascular: No: Chest Pain, Palpitations, Orthopnea, Paroxysmal Noc. Dyspnea, Edema, Lt Headedness, Other Gastrointestinal: Nausea; No: Vomiting, Abdominal Pain, Diarrhea, Constipation, Melena, Hematochezia, Other Sepsis Event Evaluation Height, Weight, BMI Height: '" Weight: lbs. oz. kg; 32.44 BMI Method: Exam Exam Vital Signs Date Time Temp Pulse Resp B/P (MAP) Pulse Ox O2 Delivery O2 Flow Rate FiO2 10/22/19 03:40 94 Room Air 10/22/19 03:25 36.5 92 16 114/73 (87) 94 Room Air 10/22/19 00:39 102 10/21/19 23:10 94 Room Air 10/21/19 23:05 36.8 105 18 124/81 (95) 94 Room Air 10/21/19 20:15 93 Room Air 10/21/19 20:00 37.2 108 21 130/79 (96) 93 Room Air 10/21/19 19:30 97 Room Air 10/21/19 18:41 110 10/21/19 17:36 36.8 10/21/19 16:39 37.8 10/21/19 16:00 97 Room Air 10/21/19 15:20 110 23 124/82 (96) 94 Room Air 10/21/19 14:20 101 19 136/88 (104) 97 Room Air 10/21/19 13:50 100 19 133/85 (101) 97 Room Air 10/21/19 13:20 105 18 127/86 (100) 97 Room Air 10/21/19 13:05 102 16 127/86 (100) 98 Room Air 10/21/19 12:50 94 18 133/87 (102) 98 Room Air 10/21/19 12:20 36.7 96 18 122/83 (96) 98 Room Air 10/21/19 12:20 97 Room Air 10/21/19 08:48 92 18 131/91 (104) 97 Room Air 10/21/19 08:00 97 Room Air 10/21/19 08:00 97 Room Air 10/21/19 07:24 36.2 10/21/19 07:00 92 10/21/19 06:00 90 18 110/74 (86) 93 Room Air I & O 10/22/19 07:00 Intake Total 1625 ml Output Total 1 ml Balance 1624 ml Height & Weight Height: '" Weight: lbs. oz. kg; 32.44 BMI Method: General Appearance: Anxious, Mild Distress HEENT: PERRL/EOMI, TMs Normal; No Moist Mucous Membranes Neck: Full Range of Motion, Normal Inspection, Non Tender, Supple Respiratory: Chest Non Tender, Lungs Clear, Normal Breath Sounds, No Accessory Muscle Use, No Respiratory Distress Cardiovascular: Regular Rate, Rhythm, No Edema, No Gallop, Normal Peripheral Pulses Capillary Refill: Less Than 3 Seconds Gastrointestinal: normal bowel sounds Extremity: Normal Capillary Refill, Normal Inspection, Normal Range of Motion, No Pedal Edema Neurologic/Psychiatric: Alert, Oriented x3, No Motor/Sensory Deficits, Normal Mood/Affect, road consultant II-XII Norm as Tested Skin: Normal Color, Warm/Dry Results Lab Laboratory Tests 10/21/19 00:37 10/21/19 01:02 10/21/19 03:54 10/22/19 03:21 Assessment/Plan Assessment/Plan NSTEMI s/p cath -Cardiology following URI s/p amoxil as out pt - probably viral -Leukocytosis -WIll start Rocephin and Azithromycin -Check UA -Check respiratory viral panel -BC pending -Influenza swab is negative DIETZ -CT head is negative -Pt does complain of neck pain -Pt refuses lumbar puncture -Check MRI of head and neck -Denies visual changes and weakness Tobacco use -Education ARABELLA MONAE DO Oct 22, 2019 05:57
[2019-10-22] MEDS ORDERED: DIAZEPAM 2 MG (VALIUM) TAB PO ONE (06:00)
[2019-10-22] MEDS ORDERED: cefTRIAXone 1,000 MG IV (ROCEPHIN) VIAL ONE (06:44)
[2019-10-22] MEDS ORDERED: WATER (STERILE) FOR INJECTION 10 ML ONE (06:44)
[2019-10-22] MEDS: cefTRIAXone FOR IV USE 1,000 MG in WATER (STERILE) FOR INJECTION 10 ML IV SCH (06:51)
[2019-10-22] MEDS ORDERED: AZITHROMYCIN INJECTION 500 MG in NS (IVPB) 250 ML IV NR (07:00)
[2019-10-22] MEDS: clonazePAM 0.5 MG (KlonoPIN) TAB PO SCH ×2 (07:56→20:44)
[2019-10-22] MEDS: ASPIRIN E.C. 81 MG (ECOTRIN) TAB PO SCH (07:56)
[2019-10-22] MEDS: FLUTICASONE NASAL SPRAY (FLONASE) 16 GM BTL NS SCH (08:03)
[2019-10-22] MEDS: morphine INJ 4 MG/ML 1 ML (VIAL/SYRINGE) IV PRN ×2 (08:32→15:42)
[2019-10-22] MEDS ORDERED: lisINopril 10 MG (PRINIVIL) TABLET PO SCH (09:00)
[2019-10-22] MEDS ORDERED: NON-FORMULARY MEDICATION 1 EA EA (Citalopram Hydrobromide (Citalopram HBr) 40 MG) PO SCH (09:00)
[2019-10-22] MEDS ORDERED: BREXPIPRAZOLE 3 MG PO SCH (09:00)
--- NOTE | 2019-10-22 10:01 | NUR ---
This nurse received verbal orders from to obtain consent for a lumbar puncture, consult anesthesia, to obtain and opening pressure, CSF aerobic and anaerobic culture, csf glucose, csf proteing and csf cell count.
[2019-10-22] MEDS ORDERED: DIAZEPAM 2 MG (VALIUM) TAB ONE (10:24)
[2019-10-22] MEDS: LACTATED RINGERS 1,000 ML IV SCH (10:31)
--- NOTE | 2019-10-22 10:40 | NUR ---
updated me that lumbar puncture cannot be performed d/t patient receiving plavix. Orders cancelled. spoke with Anesthesia.
[2019-10-22] MEDS ORDERED: GADOBUTROL 10 MMOL/10 ML (GADAVIST) VIAL IV ONE (11:00)
[2019-10-22] MEDS ORDERED: clonazePAM 0.5 MG (KlonoPIN) TAB PO SCH (12:00)
--- NOTE | 2019-10-22 12:15 | Progress Note ---
YULIANA WHITTEN,MED STUDENT 10/22/19 1215: Subjective Subjective/Events-last exam Patient denies chest pain today, but admits some SOB this a.m. she believes may be due to her anxiety. Admits continued headaches and neck pain and states pain medication helps some but does not completely resolve it. Troponin I is 2.867 this am, decreased from 3.02 in ED yesterday. Afebrile today. Focused Exam Lactate Level 10/21/19 20:03: Lactic Acid Level 0.56 Objective Exam Last Set of Vital Signs Vital Signs Date Time Temp Pulse Resp B/P (MAP) Pulse Ox O2 Delivery O2 Flow Rate FiO2 10/22/19 09:05 90 18 105/72 (83) 96 Room Air 10/22/19 07:20 36.7 Capillary Refill : Less Than 3 Seconds I&O Intake and Output 10/22/19 00:00 Intake Total 1625 ml Output Total 1 ml Balance 1624 ml Intake Oral 625 ml IV Total 1000 ml Output Stool Total 1 ml # Voids 8 Daily Weight Change Yes, 14-23 lbs Yes, 14-23 lbs General: Alert, Cooperative, No Acute Distress HEENT: EOMI Lungs: Clear to Auscultation, Normal Air Movement Heart: Regular Rate, Normal S1, Normal S2 Extremities: No Edema, Normal Pulses, No Tenderness/Swelling Results/Procedures Lab Laboratory Tests 10/21/19 12:30: Troponin I 2.695*H, B-Type Natriuretic Peptide 756.6H, Triglycerides Level 123, Cholesterol Level 120, LDL Cholesterol Direct 79, VLDL Cholesterol 25, HDL Cholesterol 25L 10/21/19 18:17: Troponin I 3.020*H 10/21/19 20:03: Lactic Acid Level 0.56, C-Reactive Protein High Sensitivity 6.43H, Thyroid Stimulating Hormone (TSH) 1.19 10/22/19 00:31: Troponin I 2.867*H 10/22/19 03:21: White Blood Count 14.0H, Red Blood Count 3.92L, Hemoglobin 11.7, Hematocrit 37, Mean Corpuscular Volume 94, Mean Corpuscular Hemoglobin 30, Mean Corpuscular Hemoglobin Concent 32, Red Cell Distribution Width 14.1, Platelet Count 398, Mean Platelet Volume 9.0, Sodium Level 140, Potassium Level 4.1, Chloride Level 108H, Carbon Dioxide Level 22, Anion Gap 10, Blood Urea Nitrogen 8, Creatinine 0.75, Estimat Glomerular Filtration Rate > 60, BUN/Creatinine Ratio 11, Glucose Level 106H, Calcium Level 8.4L, Triglycerides Level 99, Cholesterol Level 121, LDL Cholesterol Direct 77, VLDL Cholesterol 20, HDL Cholesterol 25L 10/22/19 06:55: 10/22/19 10:05: Microbiology 10/21/19 Influenza Types A,B Antigen (SHAYLA) - Final, Complete Radiology CXR 10/[address] head 10/21 draft no acute process Assessment/Plan Assessment/Plan (1) Non-STEMI (non-ST elevated myocardial infarction) Status: Acute Assessment & Plan: High troponin on admit, normal this am. Cardiology consulted, appreciate recommendations. On ASA. Continue home lisinopril. Nitro and morphine prn. (2) Leukocytosis Status: Acute Assessment & Plan: Suspect possibly related to upper respiratory infection/ear infection/sinusitis already diagnosed outpatient. CXR okay. Influenza swab negative. Completed 9 days of amoxicillin. (3) Thrombocytosis Assessment & Plan: Improving, suspect reactive, monitor. (4) Upper respiratory infection (5) Hypertension Status: Chronic (6) Pupil diameter unequal Assessment & Plan: Apparently chronic, CT head with no acute findings. (7) Anxiety (8) DVT prophylaxis Assessment & Plan: Received 90 mg enoxaparin yesterday evening, resume anticoagulation after cardiac procedure when able. Clinical Quality Measures AMI/AHF: ASA po Prior to arrival: No DVT/VTE Risk/Contraindication: Risk Factor Score Per Nursin RFS Level Per Nursing on Admit: 4+=Very High GREGG STEVENSON MD 10/22/19 1629: Subjective Subjective/Events-last exam Agree with above Review of Systems Pulmonary: No Dyspnea, No Cough Cardiovascular: No: Chest Pain, Palpitations Gastrointestinal: No: Nausea, Vomiting, Abdominal Pain Musculoskeletal: neck pain Neurological: Other (DIETZ) Objective Exam General: Alert, Cooperative, No Acute Distress Lungs: Clear to Auscultation, Normal Air Movement Heart: Regular Rate, No Murmurs Abdomen: Normal Bowel Sounds, Soft, No Tenderness, No Masses Extremities: No Edema, No Tenderness/Swelling Assessment/Plan Assessment/Plan (1) Headache Status: Acute Assessment & Plan: - Spoke with Jo and he recommended LP, At first patient declined but then stated that she was ok with it after talking with me, however patient received Plavix after Cath so is unable to get LP, MRI head today, D/c IV pain medication as she could be getting rebound DIETZ from the opoids Qualifiers: Qualified Codes: R51 - Headache (2) Hypertension Status: Chronic Assessment & Plan: - Normotensive, held ACEI (3) Leukocytosis Status: Acute (4) Non-STEMI (non-ST elevated myocardial infarction) Status: Acute Assessment & Plan: - Cardiology following patient (5) DVT prophylaxis Supervisory-Addendum Brief Verification & Attestation Participated in pt care: history Personally performed: exam Care discussed with: Medical Student Procedures: n/a Verification and Attestation of Medical Student E/M Service A medical student performed and documented this service in my presence. I reviewed and verified all information documented by the medical student and made modifications to such information, when appropriate. I personally performed the physical exam and medical decision making. Gregg Stevenson, Oct 22, 2019,16:29 YULIANA WHITTEN,MED STUDENT Oct 22, 2019 12:15 GREGG STEVENSON MD Oct 22, 2019 16:29
--- NOTE | 2019-10-22 12:19 | Diagnostic Imaging Report ---
PROCEDURE: MR imaging of the brain with and without contrast. TECHNIQUE: Multiplanar, multisequence MR imaging of the brain was performed with and without contrast. INDICATION: Headache. Chest pain. COMPARISON: CT head without contrast from 10/21/2019. FINDINGS: Lobulated primarily T2 hyperintense mass with minimal enhancement appears to extend from the inferior aspect of the fourth ventricle inferiorly to the level of C1. This mass measures approximately 1.5 x 0.9 x 2.7 cm (LR x AP x SI). No restricted water diffusion or hemosiderin deposition. Normal morphology of the major midline structures, sella, and cerebellopontine angle. Normal intracranial flow voids. The orbits are unremarkable. The paranasal sinuses and mastoids are clear. Benign hemangioma in the left parietal calvarium. IMPRESSION: 1. Lobulated T2 hyperintense mass with minimal enhancement in the posterior fossa appears to extend inferiorly from the fourth ventricle to the level of C1. 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 No evidence of CSF obstruction. Comparison with prior outside imaging would be helpful to evaluate stability, if available. Recommend neurosurgical consultation. 2. MRI of the brain is otherwise age appropriate. No evidence of infarction or hemorrhage. Dictated by: Dictated on workstation # [id number]
--- NOTE | 2019-10-22 12:22 | Diagnostic Imaging Report ---
PROCEDURE: MR imaging cervical spine with and without contrast. TECHNIQUE: Multiplanar and multisequence MRI of the cervical spine was performed with and without contrast. INDICATION: Headache. COMPARISON: MRI brain without and with IV contrast also performed today. FINDINGS: Normal alignment. Vertebral body heights are preserved. Benign hemangioma in the T2 segment. Bone marrow signal is otherwise unremarkable. Annular disc bulges at C4-C5 and C5-C6 result in mild spinal canal narrowing. No high-grade spinal canal or neuroforaminal narrowing. No abnormal signal or enhancement in the cervical spinal cord. Lobulated T2 hyperenhancing mass with minimal enhancement posterior to the medulla along the midline is also demonstrated on today's MRI and described on that report. Visualized paravertebral soft tissues are unremarkable. IMPRESSION: 1. Mild spondylotic changes in the cervical spine result in no high-grade neural impingement. 2. No acute osseous or ligamentous findings. 3. Mass in the posterior fossa is better characterized on today's comparison brain MRI. Please see that report for further details. Dictated by: Dictated on workstation # [id number]
[2019-10-22] MEDS: ENOXAPARIN 40 MG/0.4 ML (LOVENOX) SYR SQ SCH (15:49)
[2019-10-22] MEDS: HYDROcodone/APAP 7.5 MG/325 MG (LORTAB, LORCET PLUS) TABLET PO PRN ×2 (17:15→23:31)
[2019-10-22 17:38] LABS: BILIRUBIN,URINE NEGATIVE (NEGATIVE); CLARITY,URINE SL CLOUDY; COLOR,URINE YELLOW; GLUCOSE, URINE (UA) NEGATIVE (NEGATIVE); KETONES,URINE NEGATIVE (NEGATIVE); LEUKOCYTE ESTERASE ,URINE NEGATIVE (NEGATIVE); NITRITE,URINE NEGATIVE (NEGATIVE); PH,URINE 5.5 (5-9); PROTEIN,URINE NEGATIVE (NEGATIVE)
[2019-10-22 17:49] LABS: AMORPHOUS SEDIMENT,UR RARE AMOR URATES /LPF; BACTERIA,URINE TRACE /HPF; SQUAMOUS EPITHELIAL CELL,UR 0-2 /HPF
--- NOTE | 2019-10-22 18:53 | Cardiology Progress Note ---
Cardiology SOAP Progress Note Subjective: Headache, neck pain Objective: I&O/Vital Signs 10/22/19 10/22/19 10/22/19 10/22/19 07:00 07:20 07:45 08:00 Temp 36.7 Pulse 102 88 Resp 20 B/P (MAP) 118/82 (94) Pulse Ox 97 97 O2 Delivery Room Air Room Air 10/22/19 10/22/19 10/22/19 10/22/19 08:40 08:45 08:55 09:00 Pulse 86 87 90 Resp 18 18 B/P (MAP) 90/62 (71) 95/65 (75) 99/67 (78) Pulse Ox 95 95 97 O2 Delivery Room Air Room Air Room Air 10/22/19 10/22/19 10/22/19 10/22/19 09:05 12:00 13:00 13:00 Temp 36.3 Pulse 90 81 110 Resp 18 19 B/P (MAP) 105/72 (83) 116/67 (83) Pulse Ox 96 96 96 O2 Delivery Room Air Room Air Room Air 10/22/19 10/22/19 16:00 16:00 Temp 36.8 Pulse 108 Resp 24 B/P (MAP) 104/67 (79) Pulse Ox 95 99 O2 Delivery Room Air Room Air 10/22/19 00:00 Intake Total 625 ml Output Total 1 ml Balance 624 ml Constitutional: appears stated age, AAO x 3; No apparent distress; well- developed, well-nourished Respiratory: No accessory muscle use, No respiratory distress, No chest tender; chest expansion is symmetric, chest is bilaterally symmetric, lungs clear to percussion, lungs clear to auscultation, crackles; No rhonchi, No rales, No stridor, No wheezing, No pleural rub, No other Cardiovascular: regular rate-rhythm; No irregularly irregular, No extra beats, No parasternal heave is noted, No JVD, No edema, No bradycardia, No tachycardia, No point of maximal impulse, No cardiac thrills are palpable; S1 and S2; No gallop/S3, No gallop/S4, No diastolic murmur, No systolic murmur, No friction rub, No click, No other Gastrointestional: soft, audible bowel sounds; No spleenomegaly Extremities: normal range of motion, non-tender, normal inspection; No clubbing, No cyanosis; no lower extremity edema bilateral; No significant edema Neurologic/Psychiatric: no motor/sensory deficits, alert, normal mood/affect, oriented x 3, power is 5/5 both on sides Skin: normal color, warm/dry; No rash, No ulcerations Results/Procedures: Labs Laboratory Tests 10/21/19 20:03: Lactic Acid Level 0.56, C-Reactive Protein High Sensitivity 6.43H, Thyroid Stimulating Hormone (TSH) 1.19 10/22/19 00:31: Troponin I 2.867*H 10/22/19 03:21: White Blood Count 14.0H, Red Blood Count 3.92L, Hemoglobin 11.7, Hematocrit 37, Mean Corpuscular Volume 94, Mean Corpuscular Hemoglobin 30, Mean Corpuscular Hemoglobin Concent 32, Red Cell Distribution Width 14.1, Platelet Count 398, Mean Platelet Volume 9.0, Sodium Level 140, Potassium Level 4.1, Chloride Level 108H, Carbon Dioxide Level 22, Anion Gap 10, Blood Urea Nitrogen 8, Creatinine 0.75, Estimat Glomerular Filtration Rate > 60, BUN/Creatinine Ratio 11, Glucose Level 106H, Calcium Level 8.4L, Triglycerides Level 99, Cholesterol Level 121, LDL Cholesterol Direct 77, VLDL Cholesterol 20, HDL Cholesterol 25L 10/22/19 06:55: 10/22/19 10:05: 10/22/19 10:08: Urine Color YELLOW, Urine Clarity SL CLOUDY, Urine pH 5.5, Urine Specific [place] >=1.030, Urine Protein NEGATIVE, Urine Glucose (UA) NEGATIVE, Urine Ketones NEGATIVE, Urine Nitrite NEGATIVE, Urine Bilirubin NEGATIVE, Urine Urobilinogen 0.2, Urine Leukocyte Esterase NEGATIVE, Urine RBC (Auto) NEGATIVE, Urine RBC NONE, Urine WBC 2-5, Urine Squamous Epithelial Cells 0-2, Urine Crystals PRESENTH, Urine Amorphous Sediment RARE JAE URATESH, Urine Bacteria TRACE, Urine Casts NONE, Urine Mucus SMALLH, Urine Culture Indicated YES Microbiology 10/21/19 Blood Culture - Preliminary, Resulted No growth 10/21/19 Influenza Types A,B Antigen (SHAYLA) - Final, Complete A/P: Assessment/Dx: Chest pain, positive troponin, Leukocytosis, Active smoking, Hypertension Plan: Chest pain, positive troponin, aspirin, Plavix, Lovenox last night. Coronary angiography shows normal arteries. Leukocytosis, unclear etiology. If coronary angiography does not show significant CAD, we should consider myopericarditis. ?acute meningoencephalitis Active smoking, smoking cessation was strongly recommended. Hypertension,Lisinopril. Thank you for your consultation. Please call me if you have any questions. Jerman Cortez MD, FACP, FACC, FSCAI, FHRS, CCDS Interventional Cardiology Cardiac Electrophysiology Vascular Medicine and Endovascular Interventions Focused Exam Lactate Level 10/21/19 20:03: Lactic Acid Level 0.56 Clinical Quality Measures AMI/AHF: ASA po Prior to arrival: Alberto Bautista MD Oct 22, 2019 18:52
[2019-10-22] MEDS: KETOROLAC 30 MG/ML VIAL IVP PRN (20:49)
[2019-10-22] MEDS ORDERED: PROMETHAZINE INJ 25 MG/ML (PHENERGAN) AMP ONE (22:59)
[2019-10-22] MEDS ORDERED: diphenhydrAMINE 50 MG/ML INJ (BENADRYL) ONE (22:59)
[2019-10-22] MEDS ORDERED: diphenhydrAMINE 50 MG/ML INJ (BENADRYL) IV ONE (23:00)
[2019-10-22] MEDS ORDERED: PROMETHAZINE INJ 25 MG/ML (PHENERGAN) AMP IVP ONE (23:00)
[2019-10-23] VITALS: BP 119/73
[2019-10-23 03:32] VITALS: BP 105/75
[2019-10-23] MEDS: KETOROLAC 30 MG/ML VIAL IVP PRN (03:36)
[2019-10-23 03:48] LABS: BASOPHILS % (AUTO) 0 % (0-10); EOSINOPHILS # (AUTO) 0.3 10^3/uL (0.0-0.3); EOSINOPHILS % (AUTO) 3 % (0-10); HEMATOCRIT 36 % (35-52); HEMOGLOBIN 11.1 G/DL (11.5-16.0); LYMPHOCYTES # (AUTO) 1.6 X 10^3 (1.0-4.0); LYMPHOCYTES % (AUTO) 13 % (12-44); MEAN CORPUSCULAR HEMOGLOBIN 30 PG (25-34); MEAN CORPUSCULAR HGB CONC 31 G/DL (32-36); MEAN CORPUSCULAR VOLUME 96 FL (80-99); MEAN PLATELET VOLUME 9.3 FL (7.4-10.4); MONOCYTES # (AUTO) 0.7 X 10^3 (0.0-1.0); MONOCYTES % (AUTO) 6 % (0-12); NEUTROPHILS # (AUTO) 9.9 X 10^3 (1.8-7.8); NEUTROPHILS % (AUTO) 79 % (42-75); PLATELET COUNT 414 10^3/uL (130-400); RED CELL DISTRIBUTION WIDTH 14.3 % (10.0-14.5); WHITE BLOOD COUNT 12.7 10^3/uL (4.3-11.0)
[2019-10-23 04:07] LABS: ALANINE AMINOTRANSFERASE 13 U/L (0-55); ALBUMIN 3.2 GM/DL (3.2-4.5); ALKALINE PHOSPHATASE 61 U/L (40-136); BILIRUBIN,TOTAL 0.3 MG/DL (0.1-1.0); BUN/CREATININE RATIO 12; CALCIUM 8.2 MG/DL (8.5-10.1); CARBON DIOXIDE 20 MMOL/L (21-32); CHLORIDE 109 MMOL/L (98-107); CREATININE SERUM 0.81 MG/DL (0.60-1.30); GFR ESTIMATED > 60; GLUCOSE 115 MG/DL (70-105); SODIUM 141 MMOL/L (135-145); TOTAL PROTEIN 6.1 GM/DL (6.4-8.2)
[2019-10-23] MEDS: NS IV 1000 ML 1,000 ML IV SCH (04:32)
--- NOTE | 2019-10-23 05:22 | Pulmonary Progress Note ---
Subjective Time Seen by a Provider: 04:00 Subjective/Events-last exam NO complications noted. Sepsis Event Evaluation Height, Weight, BMI Height: '" Weight: lbs. oz. kg; 32.44 BMI Method: Focused Exam Lactate Level 10/21/19 20:03: Lactic Acid Level 0.56 Exam Exam Vital Signs Date Time Temp Pulse Resp B/P (MAP) Pulse Ox O2 Delivery O2 Flow Rate FiO2 10/23/19 04:00 Room Air 10/23/19 03:32 37.0 106 18 105/75 (85) 95 Room Air 10/23/19 01:00 110 10/23/19 00:00 Room Air 10/23/19 00:00 36.6 108 21 119/73 (88) 93 Room Air 10/22/19 21:00 Room Air 10/22/19 20:00 36.3 101 20 122/80 (94) 94 Room Air 10/22/19 20:00 Room Air 10/22/19 19:00 102 10/22/19 16:00 36.8 108 24 104/67 (79) 99 Room Air 10/22/19 16:00 95 Room Air 10/22/19 13:00 110 10/22/19 13:00 96 Room Air 10/22/19 12:00 36.3 81 19 116/67 (83) 96 Room Air 10/22/19 09:05 90 18 105/72 (83) 96 Room Air 10/22/19 09:00 97 Room Air 10/22/19 08:55 90 18 99/67 (78) 95 Room Air 10/22/19 08:45 87 95/65 (75) 10/22/19 08:40 86 18 90/62 (71) 95 Room Air 10/22/19 08:00 97 Room Air 10/22/19 07:45 88 20 118/82 (94) 97 Room Air 10/22/19 07:20 36.7 10/22/19 07:00 102 I & O 10/23/19 07:00 Intake Total 2550 ml Output Total 2 ml Balance 2548 ml Height & Weight Height: '" Weight: lbs. oz. kg; 32.44 BMI Method: General Appearance: No Apparent Distress, Anxious HEENT: PERRL/EOMI, TMs Normal; No Moist Mucous Membranes Neck: Full Range of Motion, Normal Inspection, Non Tender, Supple Respiratory: Chest Non Tender, Lungs Clear, Normal Breath Sounds, No Accessory Muscle Use, No Respiratory Distress Cardiovascular: Regular Rate, Rhythm, No Edema, No Gallop, Normal Peripheral Pulses Capillary Refill: Less Than 3 Seconds Gastrointestinal: normal bowel sounds Extremity: Normal Capillary Refill, Normal Inspection, Normal Range of Motion, No Pedal Edema Neurologic/Psychiatric: Alert, Oriented x3, No Motor/Sensory Deficits, Normal Mood/Affect, junior art director II-XII Norm as Tested Skin: Normal Color, Warm/Dry Results Lab Laboratory Tests 10/22/19 03:21 10/23/19 02:32 Assessment/Plan Assessment/Plan NSTEMI s/p cath -Cardiology following URI s/p amoxil as out pt - probably viral -Leukocytosis -Rocephin and Azithromycin -Check UA -Check respiratory viral panel -BC pending -Influenza swab is negative DIETZ - MRI of head and neck -Shows brain mass -I discussed with Dr. Costa -Denies visual changes and weakness Tobacco use -Education ARABELLA MONAE DO Oct 23, 2019 05:22
[2019-10-23] MEDS ORDERED: morphine INJ 4 MG/ML 1 ML (VIAL/SYRINGE) IVP PRN (05:30)
[2019-10-23] MEDS: cefTRIAXone FOR IV USE 1,000 MG in WATER (STERILE) FOR INJECTION 10 ML IV SCH (06:23)
[2019-10-23] MEDS: clonazePAM 0.5 MG (KlonoPIN) TAB PO SCH (07:49)
[2019-10-23] MEDS: ASPIRIN E.C. 81 MG (ECOTRIN) TAB PO SCH (07:49)
[2019-10-23] MEDS: HYDROcodone/APAP 7.5 MG/325 MG (LORTAB, LORCET PLUS) TABLET PO PRN (07:50)
[2019-10-23] MEDS: FLUTICASONE NASAL SPRAY (FLONASE) 16 GM BTL NS SCH (07:51)
[2019-10-23 08:00] VITALS: BP 115/82
[2019-10-23] MEDS ORDERED: AZITHROMYCIN INJECTION 250 MG in NS (IVPB) 250 ML IV SCH (09:00)
[2019-10-23] MEDS ORDERED: HYDR-34 PO (09:39)
[2019-10-23] MEDS ORDERED: CEFD300C3 PO (09:39)
--- NOTE | 2019-10-23 09:43 | Discharge Instructions ---
Discharge [facility] Discharge Medications New, Converted or Re-Newed RX: Transmitted to Pharmacy (Hydrocodone printed, abx transmitted) New Medications: Cefdinir (Cefdinir) 300 Mg Capsule 300 MG PO BID for 5 Days, #10 CAP 0 Refills Hydrocodone Bit/Acetaminophen (Lortab 7.5 Mg Tablet) 1 Ea Tablet 1 EA PO Q4H PRN for PAIN-MODERATE (5-7), #30 TAB 0 Refills Continued Medications: Brexpiprazole (Rexulti) 3 Mg Tablet 3 MG PO DAILY, TAB Citalopram Hydrobromide (Citalopram HBr) 40 Mg Tablet 40 MG PO DAILY, TAB Clonazepam (Clonazepam) 0.5 Mg Tablet 0.5 MG PO BID, TAB Clonazepam (Clonazepam) 0.5 Mg Tablet 0.25 MG PO 1200, TAB TAKES 1/2 (0.5MG) TABLET Fluticasone Propionate (Fluticasone Propionate) 16 Gm [place].susp 2 SPRAY NS DAILY, EA Ibuprofen (Advil) 200 Mg Tablet 400 MG PO TID PRN for PAIN-MILD (1-4), TAB Lamotrigine (Lamotrigine) 150 Mg Tablet 150 MG PO HS, TAB Lisinopril (Lisinopril) 10 Mg Tablet 10 MG PO DAILY, TAB Valacyclovir HCl (Valacyclovir) 500 Mg Tablet 500 MG PO BID for 15 Days, TAB 15 DAY SUPPLY FILLED 10-08-19 Discontinued Medications: Amoxicillin (Amoxicillin) 500 Mg Capsule 500 MG PO BID for 10 Days, CAP 10 DAY SUPPLY FILLED 10-13-19 Naproxen (Naproxen) 500 Mg Tablet 500 MG PO BID PRN for PAIN-MILD (1-4), TAB Patient Instructions Goal/Follow Up Appt: Follow up with [facility] on 10/30 at noon. Someone will call you about appointment with Neurosurgery. 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 Activity & Diet Discharge Diet: Regular Diet Activity as Tolerated: Yes Copy Copies To 1: MIKE Cuenca MD Oct 23, 2019 09:43
--- NOTE | 2019-10-23 10:35 | Cardiology Progress Note ---
Cardiology SOAP Progress Note Subjective: Continues to have headache, neck pain. Objective: I&O/Vital Signs 10/23/19 10/23/19 10/23/19 10/23/19 07:34 08:00 08:00 09:00 Temp 36.8 Pulse 107 94 Resp 18 B/P (MAP) 115/82 (93) Pulse Ox 97 96 96 O2 Delivery Room Air Room Air Room Air 10/23/19 12:50 B/P (MAP) 10/23/19 00:00 Intake Total 1300 ml Output Total 2 ml Balance 1298 ml Constitutional: appears stated age, AAO x 3; No apparent distress; well- developed, well-nourished Respiratory: No accessory muscle use, No respiratory distress, No chest tender; chest expansion is symmetric, chest is bilaterally symmetric, lungs clear to percussion, lungs clear to auscultation, crackles; No rhonchi, No rales, No stridor, No wheezing, No pleural rub, No other Cardiovascular: regular rate-rhythm; No irregularly irregular, No extra beats, No parasternal heave is noted, No JVD, No edema, No bradycardia, No tachycardia, No point of maximal impulse, No cardiac thrills are palpable; S1 and S2; No gallop/S3, No gallop/S4, No diastolic murmur, No systolic murmur, No friction rub, No click, No other Gastrointestional: soft, audible bowel sounds; No spleenomegaly Extremities: normal range of motion, non-tender, normal inspection; No clubbing, No cyanosis; no lower extremity edema bilateral; No significant edema Neurologic/Psychiatric: no motor/sensory deficits, alert, normal mood/affect, oriented x 3, power is 5/5 both on sides Skin: normal color, warm/dry; No rash, No ulcerations Results/Procedures: Labs Laboratory Tests 10/23/19 02:32: White Blood Count 12.7H, Red Blood Count 3.75L, Hemoglobin 11.1L, Hematocrit 36, Mean Corpuscular Volume 96, Mean Corpuscular Hemoglobin 30, Mean Corpuscular Hemoglobin Concent 31L, Red Cell Distribution Width 14.3, Platelet Count 414H, Mean Platelet Volume 9.3, Neutrophils (%) (Auto) 79H, Lymphocytes (%) (Auto) 13, Monocytes (%) (Auto) 6, Eosinophils (%) (Auto) 3, Basophils (%) (Auto) 0, Neutrophils # (Auto) 9.9H, Lymphocytes # (Auto) 1.6, Monocytes # (Auto) 0.7, Eosinophils # (Auto) 0.3, Basophils # (Auto) 0.0, Sodium Level 141, Potassium Level 4.0, Chloride Level 109H, Carbon Dioxide Level 20L, Anion Gap 12, Blood Urea Nitrogen 10, Creatinine 0.81, Estimat Glomerular Filtration Rate > 60, BUN/Creatinine Ratio 12, Glucose Level 115H, Calcium Level 8.2L, Corrected Calcium 8.8, Total Bilirubin 0.3, Aspartate Amino Transf (AST/SGOT) 13, Alanine Aminotransferase (ALT/SGPT) 13, Alkaline Phosphatase 61, Total Protein 6.1L, Albumin 3.2 Microbiology 10/22/19 Urine Culture - Final, Complete NO GROWTH 10/22/19 MRSA Screen - Final, Complete MRSA not isolated 10/21/19 Blood Culture - Preliminary, Resulted No growth A/P: Assessment/Dx: Chest pain, positive troponin, Leukocytosis, Active smoking, Hypertension, Base of the skull tumor. Plan: Chest pain, positive troponin, aspirin, Plavix, Lovenox last night. Coronary angiography shows normal arteries. Leukocytosis, unclear etiology. If coronary angiography does not show significant CAD, we should consider myopericarditis. 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 Active smoking, smoking cessation was strongly recommended. Hypertension,Lisinopril. Thank you for your consultation. Please call me if you have any questions. Jerman Cortez MD, FACP, FACC, FSCAI, FHRS, CCDS Interventional Cardiology Cardiac Electrophysiology Vascular Medicine and Endovascular Interventions Focused Exam Lactate Level 10/21/19 20:03: Lactic Acid Level 0.56 Clinical Quality Measures AMI/AHF: ASA po Prior to arrival: Alberto Bautista MD Oct 23, 2019 10:35
--- NOTE | 2019-10-23 11:00 | NUR ---
IV removed by this nurse, tip intact. gauze and tape applied to site. Entire discharge packet discussed with patient. patient advised to keep the groin heart cath insertion site clean and dry, to keep a bandaid on site for a few days, to change the bandaid daily and that it is ok to shower but to not take a bath for 6 days. patient advised to call 's office to schedule a follow up appointment. Patient stated to me that she had her car here and would drive herself home, I have given the patient PRN pain medication this morning and do not feel comfortable with her driving. I advised the patient that she is not to drive after taking pain medication. Patients daughter and her daughters boyfriend came up to the hospital, patients daughter will be driving her home and the boyfriend is driving patients [facility]. I thanked patient for making these arrangements and expressed that it is for her safety, patient agreed and was cooperative and polite. Patient was appreciative of the care that she received here at [facility], [place], she said that everyone has been very kind and caring to her. spoke with patient this morning about the results of her MRI from yesterday, I was at bedside during this discussion. Patient was thankful that she brought herself to the hospital due to her symptoms. I held patients hand while was speaking with her, patient processed the results and comprehended what said. Patient expressed to me that she is ready to get a neurosurgery consultation so she can hopefully have relief of the headaches she has been experiencing. Patient given her script written by for pain medication, patient advised of the medication order that was electronically sent to her pharmacy. Medications discussed with patient. Patient stated that she does not have any further questions, she stated that all of her questions so far have been answered. Patients daughter and daughters boyfriend are at bedside. Patient leaving floor via wheel chair at 1105. Patient taken by wheel chair to entrance.
[2019-10-23 15:38] LABS: PARAINFLU 1 PCR Not Detected (Not Detected); PARAINFLU 2 PCR Not Detected (Not Detected); RSV PCR TEST Not Detected (Not Detected)
--- NOTE | 2019-10-25 11:12 | Physician Query Clarification ---
PQ-Uncertain Diagnosis Admission/Discharge Admission Date: Oct 21, 2019 at 09:00 Discharge Date: Oct 23, 2019 at 11:05 The medical record reflects the following clinical scenario: History/Risk Factors: Chest pain, smoking, HTN Clinical Findings: Troponin 1.627, NSTEMI Treatment: On ASA, cardiac catheterization shows normal coronary arteries Question: Is NSTEMI a clinically valid diagnosis? NSTEMI was documented in the in the H&P with no further documentation in the medical record. Please document a response in Progress Note or Discharge Summary. 1. Yes, clinically valid, condition resolved. 2. No, condition ruled out. 3. Other, with explanation of clinical findings. 4. Undetermined, no explanation for clinical findings. PHYSICIAN RESPONSE Diagnosis clinically valid: No, conditon ruled out Please remember a lack of response to the above will prompt a phone page by CDI/Coding staff. In responding to this query, please exercise your independent professional judgment. The purpose of this communication is to more accurately reflect the complexity of your patients condition. The fact that a question is asked does not imply that any particular answer is desired or expected. Thank you for your timely response to this clarification. Requestors name: Maximiliano THIS PHYSICIAN QUERY FORM IS A PERMANENT PART OF THE MEDICAL RECORD BARBARA GOODEN Oct 25, 2019 11:12 MIKE OROZCO MD Oct 25, 2019 12:16
== END 2019-10-23 11:05 | disposition home or self-care (01) | DRG 286 ==
LOC: EDUNIT# 00:23 → ER 00:25 → ICU 01:54 → OBSVTOIN 09:00
PROVIDERS: ADMIT Internal Medicine; ATTEND Family Medicine
PROC: 4A023N7 Measurement of Cardiac Sampling and Pressure, Left Heart, Percutaneous Approach (ICD-10-PCS; principal; 2019-10-21)
PROC: B2111ZZ Fluoroscopy of Multiple Coronary Arteries using Low Osmolar Contrast (ICD-10-PCS; 2019-10-21)
DX: I31.9 Disease of pericardium, unspecified (principal); G04.81 Other encephalitis and encephalomyelitis; L40.9 Psoriasis, unspecified; I10 Essential (primary) hypertension; F32.9 Major depressive disorder, single episode, unspecified; F41.9 Anxiety disorder, unspecified; F17.210 Nicotine dependence, cigarettes, uncomplicated; H26.9 Unspecified cataract; J06.9 Acute upper respiratory infection, unspecified; Z79.02 Long term (current) use of antithrombotics/antiplatelets
CPT/HCPCS: 36415; 70450; 70553; 71045; 71275; 72156; 80048; 80053; 80061; 81000; 82962; 83605; 83735; 83874; 83880; 84443; 84484; 85007; 85025; 85027; 85610; 85730; 86141; 87040; 87081; 87088; 87449; 87631; 87804; 87899; 93005; 93041; 93306; 93458; 96361; 96372; 96374; 96375; 96376

== ENCOUNTER 2022-04-16 20:18 | Inpatient (IN) | payer MEDICAID ==
[~2022-04-16] VITALS: Ht 165.1 cm; Wt 91.5 kg
[~2022-04-16 20:18] MED LIST: AMOX500C2 PO; BREX3TAB PO; CEFD300C3 PO; CITA40TA13 PO; CLON0.5T4 PO; FLUT16SP22 NS; HYDR-34 PO; IBUP-30 PO; LAMO150T4 PO; LISI10TA25 PO; NAPR-915 PO; VALA500T7 PO
--- NOTE | 2022-04-16 20:52 | ED Psychosocial ---
General Chief Complaint: Suicidal Ideation Risk Stated Complaint: SUICIDAL IDEATION Nursing Triage Note: Patient to ED via [facility] in [facility] protective custody. Pt reportedly took #20 1mg ativan tablets in attempt to harm herself. 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 Pt also drank approx 1 gallon whiskey today. Pt stating "I'm not done" with the pills. Pt in handcuffs upon arrival to ED, pt screaming to have cuffs removed upon arrival. Pt stating "take these fucking handcuffs off or I'm not talking". Cuffs removed by PD, PD remains at bedside. Suicide precautions in place, pt placed in 1:1 observation. Source: patient Exam Limitations: no limitations History of Present Illness Date Seen by Provider: Apr 16, 2022 Time Seen by Provider: 20:20 Initial Comments Here by EMS in custody of [facility] for protective custody due to suicide attempt. Apparently family saw her drink half a gallon of whiskey and took approximately 20 each of 1 mg Ativan tablets in an attempt to kill herself. Patient states that she is going to continue to try to kill herself and she wants to . She reports that she has a brain tumor and she cannot afford her medical bills and she just wants to . She arrived in handcuffs but those were removed shortly after arrival. Law enforcement will remain with the patient. Patient is not very forthcoming with information and is declining to answer most questions. Does admit to the drug overdose and alcohol intake. Police are reporting that she is becoming a little bit more drowsy now as she was very agitated at home. Timing/Duration: just prior to arrival (Approximately 30 minutes prior for when she took the pills) Severity: severe Associated Symptoms: ingestion, suicidal ideation Allergies and Home Medications Allergies Coded Allergies: No Known Drug Allergies (Unverified , 10/21/19) Patient Home Medication List Home Medication List Reviewed: Yes Brexpiprazole (Rexulti) 3 Mg Tablet, 3 MG PO DAILY, (Reported) Entered as Reported by: ROSA GILLETTE on 10/21/19 0955 Cefdinir (Cefdinir) 300 Mg Capsule, 300 MG PO BID Prescribed by: MIKE OROZCO on 10/23/19 0939 Citalopram Hydrobromide (Citalopram HBr) 40 Mg Tablet, 40 MG PO DAILY, (Reported) Entered as Reported by: ROSA GILLETTE on 10/21/19935 Clonazepam (Clonazepam) 0.5 Mg Tablet, 0.5 MG PO BID, (Reported) Entered as Reported by: ROSA GILLETTE on 10/21/19935 Clonazepam (Clonazepam) 0.5 Mg Tablet, 0.25 MG PO 1200, (Reported) Entered as Reported by: ROSA GILLETTE on 10/21/19954 Fluticasone Propionate (Fluticasone Propionate) 16 Gm [place].susp, 2 SPRAY NS DAILY, (Reported) Entered as Reported by: ROSA GILLETTE on 10/21/19935 Hydrocodone Bit/Acetaminophen (Lortab 7.5 Mg Tablet) 1 Ea Tablet, 1 EA PO Q4H P RN for PAIN-MODERATE (5-7) Prescribed by: MIKE OROZCO on 10/23/19938 Ibuprofen (Advil) 200 Mg Tablet, 400 MG PO TID PRN for PAIN-MILD (1-4), (Reported) Entered as Reported by: ROSA GILLETTE on 10/21/19954 Lamotrigine (Lamotrigine) 150 Mg Tablet, 150 MG PO HS, (Reported) Entered as Reported by: ROSA GILLETTE on 10/21/19935 Lisinopril (Lisinopril) 10 Mg Tablet, 10 MG PO DAILY, (Reported) Entered as Reported by: ROSA GILLETTE on 10/21/19935 Valacyclovir HCl (Valacyclovir) 500 Mg Tablet, 500 MG PO BID, (Reported) Entered as Reported by: ROSA GILLETTE on 10/21/19935 Review of Systems Constitutional: see HPI; No chills, No fever Psychiatric/Neurological: Emotional Problems Patient refused to answer review of system questions. Past Btvohkc-Wjexcs-Ppvdeh Hx Patient Social History Tobacco Use?: No Substance use?: No Alcohol Use?: No Pt feels they are or have been: No Seasonal Allergies Seasonal Allergies: No Past Medical History Surgery/Hospitalization HX: per pt, previous heart attack w/ no stenting, HTN, brain tumor Surgeries: Yes Adenoidectomy, Tonsillectomy Respiratory: No Cardiac: Yes Hypertension Neurological: No Genitourinary: No Gastrointestinal: No Musculoskeletal: No Endocrine: No HEENT: Yes Cataract Loss of Vision: Denies Hearing Impairment: Denies Cancer: No Psychosocial: Yes Anxiety, Depression Integumentary: No Blood Disorders: No Family Medical History CAD Under 55 Years Old, Diabetes Physical Exam Vital Signs - First Documented 04/16/22 20:20 Temp 36.3 Pulse 110 Resp 18 B/P (MAP) 132/86 (101) Pulse Ox 92 O2 Delivery Room Air Capillary Refill : Less Than 3 Seconds Height, Weight, BMI Height: '" Weight: lbs. oz. kg; 32.44 BMI Method: General Appearance: WD/WN, moderate distress HEENT: other (Unequal pupils with right approximately 6 to 7 mm and left approximately 3 mm) Neck: full range of motion, supple Respiratory: lungs clear, normal breath sounds Cardiovascular: no murmur, tachycardia Peripheral Pulses: 2+ Dorsalis Pedis (R), 2+ Left Dors-Pedis (L), 2+ Radial Pulses (R), 2+ Radial Pulses (L) Gastrointestinal: non tender, soft Extremities: non-tender, normal inspection Neurologic/Psychiatric: alert, oriented x 3 Appearance/Memory: disheveled, impaired insight Behavior/Eye Contact: refused to answer, belligerent, uncooperative Skin: normal color, warm/dry Procedures/Interventions Date of ETT Placement: Apr 16, 2022 Time of ETT Placement: 23:27 Intubation Method: orotracheal Tube Size: 7.5 Medications: Etomidate, Succinylcholine Positive End Tide CO2: Yes Breath Sounds after Intubation: bilateral-equal Intubation Complications: no complications Post Intubation Xray: Yes Tube in good position Patient intubated due to increasing hypoxia and hypoventilation. Intubated using glide scope x1 attempt without complications. Tolerated procedure well. No hypoxia encountered. Progress/Results/Core Measures Results/Orders Lab Results Laboratory Tests Test 04/16/22 22:47 Range/Units White Blood Count 11.0 4.3-11.0 10^3/uL Red Blood Count 4.54 3.80-5.11 10^6/uL Hemoglobin 13.0 11.5-16.0 g/dL Hematocrit 40 35-52 % Mean Corpuscular Volume 88 80-99 fL Mean Corpuscular Hemoglobin 29 25-34 pg Mean Corpuscular Hemoglobin Concent 32 32-36 g/dL Red Cell Distribution Width 13.2 10.0-14.5 % Platelet Count 247 130-400 10^3/uL Mean Platelet Volume 9.6 9.0-12.2 fL Immature Granulocyte % (Auto) 1 % Neutrophils (%) (Auto) 72 42-75 % Lymphocytes (%) (Auto) 20 12-44 % Monocytes (%) (Auto) 6 0-12 % Eosinophils (%) (Auto) 1 0-10 % Basophils (%) (Auto) 1 0-10 % Neutrophils # (Auto) 7.9 H 1.8-7.8 10^3/uL Lymphocytes # (Auto) 2.2 1.0-4.0 10^3/uL Monocytes # (Auto) 0.6 0.0-1.0 10^3/uL Eosinophils # (Auto) 0.1 0.0-0.3 10^3/uL Basophils # (Auto) 0.1 0.0-0.1 10^3/uL Immature Granulocyte # (Auto) 0.1 0.0-0.1 10^3/uL Sodium Level 143 135-145 MMOL/L Potassium Level 3.8 3.6-5.0 MMOL/L Chloride Level 107 98-107 MMOL/L Carbon Dioxide Level 22 21-32 MMOL/L Anion Gap 14 5-14 MMOL/L Blood Urea Nitrogen 8 7-18 MG/DL Creatinine 0.83 0.60-1.30 MG/DL Estimat Glomerular Filtration Rate 84 BUN/Creatinine Ratio 10 Glucose Level 98 70-105 MG/DL Calcium Level 8.9 8.5-10.1 MG/DL Corrected Calcium 8.9 8.5-10.1 MG/DL Total Bilirubin 0.5 0.1-1.0 MG/DL Aspartate Amino Transf (AST/SGOT) 11 5-34 U/L Alanine Aminotransferase (ALT/SGPT) 13 0-55 U/L Alkaline Phosphatase 77 40-136 U/L Total Protein 7.0 6.4-8.2 GM/DL Albumin 4.0 3.2-4.5 GM/DL TSH [place] Testing 1.86 0.35-4.94 UIU/ML Salicylates Level < 5.0 L 5.0-20.0 MG/DL Acetaminophen Level < 10 L 10-30 UG/ML Serum Alcohol 35 H <10 MG/DL My Orders Orders - ESTUARDO MONTERO MD Ua Culture If Indicated (04/16/22 20:31) Cbc With Automated Diff (04/16/22 20:31) Comprehensive Metabolic Panel (04/16/22 20:31) Alcohol (04/16/22 20:31) Drug Screen Stat (Urine) (04/16/22 20:31) Acetaminophen (04/16/22 20:31) Salicylate (04/16/22 20:31) Ekg Tracing (04/16/22 20:31) Ed Iv/Invasive Line Start (04/16/22 20:31) Monitor-Rhythm Ecg Trace Only (04/16/22 20:31) Bh Status Checks/Observation Q15M (04/16/22 20:31) Ed Iv/Invasive Line Start (04/16/22 20:31) Ct Head Wo (04/16/22 20:31) Ziprasidone Injection (Geodon Injection) (04/16/22 22:00) Water (Sterile) For Injection (Sterile W (04/16/22 22:00) Ziprasidone Injection (Geodon Injection) (04/16/22 21:52) End Tidal Co2 (04/16/22 22:55) Thyroid Analyzer (04/16/22 22:47) Chest 1 View, Ap/Pa Only (04/16/22 ) Propofol Drip (Icu) (Diprivan Drip (Icu) (04/16/22 23:45) Sedation Communication Q48H (04/16/22 23:33) Triglycerides (04/16/22 23:33) Triglycerides (04/18/22 23:33) Propofol Drip (Icu) (Diprivan Drip (Icu) (04/16/22 23:34) Medications Given in ED Current Medications Medications Dose Ordered Sig/Elaina Route Start Time Stop Time Status Last Admin Dose Admin Ziprasidone 20 mg ONCE ONCE IM 04/16/22 22:00 04/16/22 22:01 DC 04/16/22 21:58 20 MG Vital Signs/I&O 04/16/22 20:20 Temp 36.3 Pulse 110 Resp 18 B/P (MAP) 132/86 (101) Pulse Ox 92 O2 Delivery Room Air Blood Pressure Mean: 101 Progress Progress Note : Progress Note Seen and evaluated. Psych screening initiated. We will get CT of the head as well given unequal pupils and concerns for tumor. Monitor patient. 2053: Patient is refusing all care and states that she just wants to and she does not want the medical bills and is concerned that the work-up is all going to cost her a lot of money. Monitor patient. 2204: Patient is still refusing care and actually became quite combative with law enforcement. She is still quite agitated. Geodon 20 mg IM administered and patient excepted that without objection. We will continue to try to get labs to look to do medical clearance and began mental health clearance. Monitor patient. Patient remains one-on-one sitter. 2299: CT complete. Labs pending. Patient is resting peacefully now after Geodon. We do have her on end-tidal CO2. O2 saturations 88 to 89% and we will apply O2. Monitor patient. 2334: Patient became increasingly hypoxic and hypoventilating. Elected intubation for airway control. This was accomplished using glide scope without complications. I did discuss the case with Dr. Cintron. She accepts patient to the ICU. NGT tube placed. 2342: Rick catheter to be placed and then patient will go to the ICU. She did receive rocuronium 50 mg IV after intubation as she started to move a little bit more. Propofol drip initiated at 40 mcg/kg/min. [facility] as [facility] Cintron. Dr. Cintron accepts patient for admission to the ICU, inpatient status. Patient did report multiple times during the night that she just wanted to go home so that she could complete coming herself. Initial ECG Impression Date: Apr 16, 2022 Initial ECG Impression Time: 21:07 Initial ECG Rate: 97 Initial ECG Rhythm: Normal Sinus Comment Sinus rhythm with normal axis. No evidence of ST elevation MT. Similar to previous of 10/21/2019. Interpreted by me. Diagnostic Imaging Diagonstic Imaging: CT Plain Films/CT/US/NM/MRI: head Comments [facility] [place] NAME: RICHARD DWYER [facility] REC#: [id number] PT STATUS: REG ER : 1965 PHYSICIAN: ESTUARDO MONTERO MD ADMIT DATE: 04/16/22/ER Draft Date of Exam:04/16/22 CT HEAD WO PROCEDURE: CT head without contrast. TECHNIQUE: Multiple contiguous axial images were obtained through the brain without the use of intravenous contrast. Auto Exposure Controls were utilized during the CT exam to meet ALARA standards for radiation dose reduction. INDICATION: Unequal pupils, altered mental status, known brain tumor. COMPARISON: 10/21/2019. FINDINGS: No intracranial hemorrhage. Calcifications inferior to the 4th ventricle are again identified and stable since 2019. No additional intracranial mass, mass effect, midline shift, herniation, hydrocephalus or extra-axial fluid collection. No CT evidence of an acute ischemic infarction. The orbits are unremarkable. A 1 cm lucency is identified within the posterior calvarium just to the left of midline within the left parietal lobe. This was likely present on the prior examination. The calvarium is intact. The paranasal sinuses are clear. IMPRESSION: 1. No acute intracranial abnormality. 2. Stable calcifications inferior to the 4th ventricle. Dictated on workstation # [id number] Dict: 04/16/22 2249 Trans: 04/16/22 2255 [facility] [id number] Interpreted by: DEMETRIO SINGLETARY MD Electronically signed by: Diagonstic Imaging: Xray Plain Films/CT/US/NM/MRI: chest Comments ET tube and NG tube in good position. No obvious infiltrate. Reviewed by me. Reviewed: Reviewed by Me Departure Communication (Admissions) Time/Spoke to Admitting Phy: 23:32 Time/Spoke to Consulting Phy: 23:35 Impression Primary Impression: Benzodiazepine overdose Qualified Codes: T42.4X2A - Poisoning by benzodiazepines, intentional self- harm, initial encounter Additional Impressions: Suicide attempt Alcohol abuse Respiratory failure with hypoxia Qualified Codes: J96.01 - Acute respiratory failure with hypoxia Disposition: ADMITTED INPATIENT Condition: Critical Admissions Decision to Admit Reason: Admit from ER (General) Decision to Admit/Date: Apr 16, 2022 Time/Decision to Admit Time: 23:32 Departure-Patient Inst. [facility] (PCP/Family) Primary Care Physician Patient Instructions: OUTPT MENTAL HEALTH SERVICES ESTUARDO MONTERO MD Apr 16, 2022 20:51
[2022-04-16] MEDS ORDERED: ZIPRASIDONE 20 MG INJ (GEODON) VIAL IM ONE ×2 (21:52→22:00)
[2022-04-16] MEDS ORDERED: WATER (STERILE) FOR INJ 10 ML BTL INJ SCH (22:00)
[2022-04-16 22:53] LABS: BASOPHILS # (AUTO) 0.1 10^3/uL (0.0-0.1); BASOPHILS % (AUTO) 1 % (0-10); EOSINOPHILS # (AUTO) 0.1 10^3/uL (0.0-0.3); EOSINOPHILS % (AUTO) 1 % (0-10); HEMATOCRIT 40 % (35-52); LYMPHOCYTES # (AUTO) 2.2 10^3/uL (1.0-4.0); LYMPHOCYTES % (AUTO) 20 % (12-44); MEAN CORPUSCULAR HEMOGLOBIN 29 pg (25-34); MEAN CORPUSCULAR HGB CONC 32 g/dL (32-36); MEAN CORPUSCULAR VOLUME 88 fL (80-99); MEAN PLATELET VOLUME 9.6 fL (9.0-12.2); MONOCYTES # (AUTO) 0.6 10^3/uL (0.0-1.0); MONOCYTES % (AUTO) 6 % (0-12); NEUTROPHILS # (AUTO) 7.9 10^3/uL (1.8-7.8); NEUTROPHILS % (AUTO) 72 % (42-75); PLATELET COUNT 247 10^3/uL (130-400)
--- NOTE | 2022-04-16 22:56 | Diagnostic Imaging Report ---
PROCEDURE: CT head without contrast. TECHNIQUE: Multiple contiguous axial images were obtained through the brain without the use of intravenous contrast. Auto Exposure Controls were utilized during the CT exam to meet ALARA standards for radiation dose reduction. INDICATION: Unequal pupils, altered mental status, known brain tumor. COMPARISON: 10/21/2019. FINDINGS: No intracranial hemorrhage. Calcifications inferior to the 4th ventricle are again identified and stable since 2019. No additional intracranial mass, mass effect, midline shift, herniation, hydrocephalus or extra-axial fluid collection. No CT evidence of an acute ischemic infarction. The orbits are unremarkable. A 1 cm lucency is identified within the posterior calvarium just to the left of midline within the left parietal lobe. This was likely present on the prior examination. The calvarium is intact. The paranasal sinuses are clear. IMPRESSION: 1. No acute intracranial abnormality. 2. Stable calcifications inferior to the 4th ventricle. Dictated by: Dictated on workstation # [id number]
[2022-04-16 23:02] LABS: CHLORIDE 107 MMOL/L (98-107); POTASSIUM 3.8 MMOL/L (3.6-5.0); SODIUM 143 MMOL/L (135-145)
[2022-04-16 23:03] LABS: CALCIUM 8.9 MG/DL (8.5-10.1)
[2022-04-16 23:05] LABS: GLUCOSE 98 MG/DL (70-105)
[2022-04-16 23:06] LABS: CARBON DIOXIDE 22 MMOL/L (21-32)
[2022-04-16 23:07] LABS: BILIRUBIN,TOTAL 0.5 MG/DL (0.1-1.0)
[2022-04-16 23:09] LABS: ALKALINE PHOSPHATASE 77 U/L (40-136); CREATININE SERUM 0.83 MG/DL (0.60-1.30); GFR ESTIMATED 84
[2022-04-16 23:10] LABS: BUN/CREATININE RATIO 10
[2022-04-16 23:11] LABS: SALICYLATE < 5.0 MG/DL (5.0-20.0)
[2022-04-16 23:12] LABS: ALANINE AMINOTRANSFERASE 13 U/L (0-55)
[2022-04-16 23:25] LABS: ACETAMINOPHEN < 10 UG/ML (10-30)
[2022-04-16 23:27] VITALS: BP 150/91
[2022-04-16 23:31] LABS: TSH (THYROID ANALYZER) 1.86 UIU/ML (0.35-4.94)
[2022-04-16] MEDS ORDERED: PROPOFOL DRIP (ICU) 100 ML IV ONE (23:34)
[2022-04-16] MEDS ORDERED: PROPOFOL DRIP (ICU) 100 ML IV SCH (23:45)
[2022-04-17] VITALS (7 sets, daily range): BP systolic 114–161; BP diastolic 78–93
[2022-04-17 00:16] LABS: BACTERIA,URINE NEGATIVE /HPF; BILIRUBIN,URINE NEGATIVE (NEGATIVE); CLARITY,URINE CLEAR; COLOR,URINE YELLOW; GLUCOSE, URINE (UA) NEGATIVE (NEGATIVE); KETONES,URINE NEGATIVE (NEGATIVE); LEUKOCYTE ESTERASE ,URINE NEGATIVE (NEGATIVE); NITRITE,URINE NEGATIVE (NEGATIVE); PROTEIN,URINE NEGATIVE (NEGATIVE)
[2022-04-17 00:24] LABS: AMPHETAMINE SCREEN, URINE NEGATIVE (NEGATIVE); BARBITURATE SCREEN URINE NEGATIVE (NEGATIVE); BENZODIAZEPINES SCREEN URINE POSITIVE (NEGATIVE); CANNABINOID SCREEN, URINE NEGATIVE (NEGATIVE); COCAINE SCREEN URINE NEGATIVE (NEGATIVE); METHADONE STAT NEGATIVE (NEGATIVE); OPIATE SCREEN URINE NEGATIVE (NEGATIVE); OXYCODONE STAT NEGATIVE (NEGATIVE); PROPOXYPHENE STAT NEGATIVE (NEGATIVE); TRICYCLIC ANTIDEPRESSANTS SCRE NEGATIVE (NEGATIVE)
[2022-04-17] MEDS ORDERED: PROPOFOL DRIP (ICU) 100 ML IV SCH (00:30)
[2022-04-17] MEDS ORDERED: DexMEDEtomidine 250 ML DRIP 250 ML IV ONE (00:32)
[2022-04-17] MEDS ORDERED: RT-ALBUTEROL SULF 2.5 MG/3 ML PRE-MIX VIAL INH PRN (00:45)
[2022-04-17 00:51] LABS: ABG BASE EXCESS -0.2 MMOL/L (-2.5-2.5); ABG OXYGEN SATURATION 94 % (94-100); ABG PCO2 44 MMHG (35-45); ABG PH 7.36 (7.37-7.43); ABG PO2 70 MMHG (79-93); ABG TCO2 26.1 MMOL/L (21.0-31.0)
[2022-04-17 00:53] LABS: ALLENS TEST POSITIVE
[2022-04-17 00:54] LABS: INSPIRED O2 18; PATIENT TEMP 36.4; VENTILATOR YES
[2022-04-17] MEDS: DexMEDEtomidine 250 ML DRIP 250 ML IV SCH ×3 (01:01→23:44)
[2022-04-17] MEDS: ENOXAPARIN 40 MG/0.4 ML (LOVENOX) SYR SC SCH ×2 (01:02→21:49)
[2022-04-17] MEDS: NS IV 1000 ML 1,000 ML IV SCH ×3 (01:12→16:38)
[2022-04-17 05:02] LABS: BASOPHILS # (AUTO) 0.1 10^3/uL (0.0-0.1); BASOPHILS % (AUTO) 1 % (0-10); EOSINOPHILS # (AUTO) 0.1 10^3/uL (0.0-0.3); EOSINOPHILS % (AUTO) 1 % (0-10); HEMATOCRIT 42 % (35-52); HEMOGLOBIN 13.4 g/dL (11.5-16.0); LYMPHOCYTES # (AUTO) 2.5 10^3/uL (1.0-4.0); LYMPHOCYTES % (AUTO) 24 % (12-44); MEAN CORPUSCULAR HEMOGLOBIN 29 pg (25-34); MEAN CORPUSCULAR HGB CONC 32 g/dL (32-36); MEAN CORPUSCULAR VOLUME 90 fL (80-99); MEAN PLATELET VOLUME 9.8 fL (9.0-12.2); MONOCYTES # (AUTO) 0.7 10^3/uL (0.0-1.0); MONOCYTES % (AUTO) 7 % (0-12); NEUTROPHILS # (AUTO) 6.7 10^3/uL (1.8-7.8); NEUTROPHILS % (AUTO) 66 % (42-75); PLATELET COUNT 230 10^3/uL (130-400); WHITE BLOOD COUNT 10.2 10^3/uL (4.3-11.0)
[2022-04-17 05:13] LABS: ALBUMIN 3.8 GM/DL (3.2-4.5)
[2022-04-17 05:15] LABS: CALCIUM 8.8 MG/DL (8.5-10.1)
[2022-04-17 05:16] LABS: TOTAL PROTEIN 6.9 GM/DL (6.4-8.2)
[2022-04-17 05:18] LABS: BILIRUBIN,TOTAL 0.7 MG/DL (0.1-1.0)
[2022-04-17 05:19] LABS: PHOSPHORUS 2.9 MG/DL (2.3-4.7)
--- NOTE | 2022-04-17 05:19 | History & Physical-Hospitalist ---
History of Present Illness HPI/Chief Complaint Chief complaint: Fever with pyelonephritis History of present illness: This is a 56-year-old female who presented to the ER with fever and flank pain following a stent placed due to kidney stone at [facility] in [place] on Monday since we do not have urology specialty care. She was found to have a UTI and pyelonephritis and cultures revealed gram-negative tawana from previous hospital stay and this one. Rocephin started. IV fluids initiated. Patient feels much better. Source: patient Exam Limitations: no limitations Date Seen 04/17/22 Time Seen by a Provider: 05:30 Attending Physician [facility] PCP Admitting Physician: Olga Cintron DO Attending Physician: Olga Cintron DO Referring Physician Date of Admission Apr 16, 2022 at 23:35 Home Medications & Allergies Home Medications Reviewed patient Home Medication Reconciliation performed by pharmacy medication reconciliations costume technician and/or nursing. Patients Allergies have been reviewed. Allergies Allergies Coded Allergies No Known Drug Allergies (Unverified10/21/19) Past Tkzqyop-Siykhw-Egqjxa Hx Patient Social History Marrital Status: Employed/Student: employed Tobacco Use?: No Smoking Status: Unknown if Ever Smoked Smokeless Tobacco Frequency: Unknown if Ever Used Use of E-Cig and/or Vaping Ghulam: Unknown if Ever Used Substance use?: No Substance type: Misuse of prescript meds Alcohol Use?: Yes Alcohol type: Hard Liquor Additional alcohol type: WHISKEY Pt feels they are or have been: Unable to obtain Seasonal Allergies Seasonal Allergies: No Current Status status: No status: No Advance Directives: Unable to obtain Communicates: Verbally Primary Language: Cuban Preferred Spoken Language: Cuban Is interpretation needed?: Unable to obtain Implanted or Applied Medical D: None Past Medical History Surgeries: Adenoidectomy, Tonsillectomy Hypertension Kidney Stones Cataract Loss of Vision: Denies Hearing Impairment: Denies Anxiety, Depression Blood Disorders: No PMHx: HTN Mood disorder Psoriasis Gestational diabetes SurgHx: Tonsillectomy Family Medical History CAD Under 55 Years Old, Diabetes Review of Systems Constitutional: see HPI, dizziness, malaise, weakness EENTM: no symptoms reported Respiratory: no symptoms reported Cardiovascular: no symptoms reported Gastrointestinal: no symptoms reported, loss of appetite, nausea, vomiting Genitourinary: decreased output Musculoskeletal: back pain Skin: no symptoms reported All Other Systems Reviewed Negative Unless Noted: Yes Physical Exam Physical Exam Vital Signs Vital Signs - First Documented 04/16/22 04/16/22 04/17/22 20:20 23:27 00:01 Temp 36.3 Pulse 110 Resp 18 B/P (MAP) 132/86 (101) Pulse Ox 92 O2 Delivery Room Air O2 Flow Rate 35.00 FiO2 35 Capillary Refill : Less Than 3 Seconds Height, Weight, BMI Height: '" Weight: lbs. oz. kg; 36.46 BMI Method: General Appearance: No Apparent Distress Eyes: Right Eye Normal Inspection, Right Eye PERRL HEENT: PERRL/EOMI, TMs Normal, Normal ENT Inspection, Pharynx Normal, Moist Mucous Membranes Neck: Full Range of Motion, Normal Inspection, Non Tender Respiratory: Chest Non Tender, Lungs Clear, Normal Breath Sounds, No Accessory Muscle Use, No Respiratory Distress Cardiovascular: Regular Rate, Rhythm, No Edema, No Gallop, No JVD, No Murmur, Normal Peripheral Pulses Gastrointestinal: Normal Bowel Sounds, No Organomegaly, No Pulsatile Mass, Non Tender, Soft Back: Normal Inspection, No CVA Tenderness, No Vertebral Tenderness Extremity: Normal Capillary Refill, Normal Inspection, Normal Range of Motion, Non Tender, No Calf Tenderness, No Pedal Edema Neurologic/Psychiatric: Alert, Oriented x3, No Motor/Sensory Deficits, Normal Mood/Affect Skin: Normal Color, Warm/Dry Lymphatic: No Adenopathy Results Results/Procedures Labs Laboratory Tests 04/16/22 22:47 04/17/22 04:35 Patient resulted labs reviewed. Assessment/Plan Admission Diagnosis Assessment: Sepsis Gram-negative bacteremia Fever Pyelonephritis Recent instrumentation with ureteral stent Kidney stone first episode Plan: IV antibiotics IV fluids Supportive care Admission Status: Inpatient Order (span 2 midnights) Reason for Inpatient Admission: Sepsis Diagnosis/Problems Diagnosis/Problems (1) Pyelonephritis (2) Sepsis (3) S/P ureteral stent placement (4) Kidney stone OLGA CINTRON DO Apr 17, 2022 05:19
[2022-04-17 05:20] LABS: CREATININE SERUM 0.85 MG/DL (0.60-1.30)
[2022-04-17 05:41] LABS: ABG BASE EXCESS -0.2 MMOL/L (-2.5-2.5); ABG OXYGEN SATURATION 97 % (94-100); ABG PCO2 36 MMHG (35-45); ABG PH 7.43 (7.37-7.43); ABG PO2 83 MMHG (79-93); ABG TCO2 24.7 MMOL/L (21.0-31.0)
[2022-04-17 05:42] LABS: ALLENS TEST POSITIVE; INSPIRED O2 28; PATIENT TEMP 36.6; VENTILATOR YES
[2022-04-17] MEDS: MAGNESIUM 1 GM/100 ML IVPB 100 ML IV SCH (06:19)
[2022-04-17] MEDS: POTASSIUM CL 10MEQ/50ML IVPB 50 ML IV SCH (06:19)
[2022-04-17] MEDS: KCL 20 MEQ TAB (K-DUR) PO SCH (06:20)
--- NOTE | 2022-04-17 06:40 | Diagnostic Imaging Report ---
Indication: Dyspnea, followup intubation. Comparison: 10/21/2019. Discussion: Single portable supine view of the chest was obtained. Endotracheal tube is new and appears in good position just below the thoracic inlet. New enteric tube with tip in the gastric body. Heart is upper limits of normal in size. Low lung volumes. Bilateral mixed interstitial and alveolar infiltrates particularly within the right upper lobe and throughout the left lung which are nonspecific and could be seen with edema or pneumonia. No pleural fluid or pneumothorax. No osseous abnormality. Impression: 1. Endotracheal tube in good position. 2. Bilateral pulmonary infiltrates. Dictated by: Dictated on workstation # [id number]
[2022-04-17] MEDS: PANTOPRAZOLE 40 MG (PROTONIX) VIAL IV SCH (08:30)
--- NOTE | 2022-04-17 09:17 | Tele-ICU Progress Note ---
Subjective Date Seen by a Provider: Apr 17, 2022 Time Seen by a Provider: 07:30 Subjective/Events-last exam This virtual visit was conducted using real time audio/video. Thank you for asking us to see this patient for respiratory insufficiency. preented w alcohol and Ativan OD. Claimed to have brain tumor but CTH normal. A gitated in ER. Intubated 04/16 for hypoxia and hypoventilation. Recent events: Calm overnight. PMH: htn., anx., dep. ROS: limited by patient's clinical condition. PE: Comfortable onn vent. VSS. O2 sat 98% on 28%/+5. HEENT: No obvious masses, adenopathy or JVD. Chest: clear to auscultation. CV: RRR S1 S2 No murmur or added sounds. Abd: Non-tender. Bowel sounds Y. : Unremarkable. Rick Y. B[employer] PRODUCTION MANAGER/psychiatric: Grossly intact. No obvious focal findings. Extremities: No edema. Capillary refill < 3 seconds. Skin: unremarkable. Results: Elevated .BG 118 B.43/36/83 on 28%/+5. CXR: B infilts., L>R. Available chart/ vitals / labs / images reviewed. Video assessment done using teleICU camera, rest of exam as per RN. A/P: Respiratory insufficiency: Continue present management w vent., Propofol, Precedex. Possible sedation vacation in AM. Critical Care: critically ill patient. Cont. PPI, Boby. Discussed with RN BRUCE. Asked RN to reach out to eICU if any questions or concerns later. Time spent with patient/coordination of care with other health professionals (mins): 25. Sepsis Event Evaluation Height, Weight, BMI Height: '" Weight: lbs. oz. kg; 36.72 BMI Method: Exam Exam Patient acknowledged, consented, and participated in this virtual visit which was conducted using real time audio/video Vital Signs Date Time Temp Pulse Resp B/P (MAP) Pulse Ox O2 Delivery O2 Flow Rate FiO2 04/17/22 08:00 63 16 132/85 93 Mechanical Ventilator 28.00 04/17/22 08:00 37.0 04/17/22 07:22 60 16 99 28 04/17/22 07:00 60 16 134/85 99 Mechanical Ventilator 28.00 04/17/22 07:00 60 04/17/22 06:00 61 16 151/108 99 Mechanical Ventilator 28.00 04/17/22 05:50 64 151/96 04/17/22 05:00 63 16 153/96 99 Mechanical Ventilator 28.00 04/17/22 04:00 64 16 151/96 99 Mechanical Ventilator 28.00 04/17/22 04:00 Mechanical Ventilator 28 04/17/22 03:00 64 16 148/93 99 Mechanical Ventilator 28.00 04/17/22 02:49 Mechanical Ventilator 28.00 04/17/22 02:26 64 16 99 28 04/17/22 02:23 68 137/85 04/17/22 02:00 69 16 144/91 99 Mechanical Ventilator 35.00 04/17/22 01:01 102 156/101 04/17/22 01:00 84 15 141/87 99 Mechanical Ventilator 35.00 04/17/22 00:45 89 16 136/86 98 Mechanical Ventilator 35.00 04/17/22 00:39 101 04/17/22 00:31 36.6 96 98 35 04/17/22 00:30 101 40 156/101 98 Mechanical Ventilator 35.00 04/17/22 00:15 Mechanical Ventilator 35 04/17/22 00:15 98 18 150/91 97 Mechanical Ventilator 35.00 04/17/22 00:01 154/98 Mechanical Ventilator 35.00 04/16/22 23:50 96 18 150/93 100 Mechanical Ventilator 04/16/22 23:35 98 157/97 04/16/22 23:27 103 19 98 35 04/16/22 20:20 36.3 110 18 132/86 (101) 92 Room Air I & O 04/17/22 07:00 Intake Total 200 ml Output Total 650 ml Balance -450 ml Height & Weight Height: '" Weight: lbs. oz. kg; 36.72 BMI Method: General Appearance: Obese (See free text) Capillary Refill: Less Than 3 Seconds Peripheral Pulses: 2+ Dorsalis Pedis (R), 2+ Left Dors-Pedis (L), 2+ Radial Pulses (R), 2+ Radial Pulses (L) Gastrointestinal: non tender, soft Results Lab Laboratory Tests 04/16/22 22:47 04/17/22 04:35 Assessment/Plan Assessment/Plan See free text. Critical Care: Ventilator Management JOHNATHON JACOBS MD Apr 17, 2022 09:17
[2022-04-17] MEDS ORDERED: SUCCINYLCHOLINE INJ 100 MG/5 ML SYR/VIAL INJ ONE (09:23)
[2022-04-17] MEDS ORDERED: ROCURONIUM 50 MG/5 ML (ZEMURON) VIAL IV ONE (09:23)
[2022-04-17] MEDS ORDERED: ETOMIDATE IV SOLN 20 MG/10 ML VIAL IV ONE (09:23)
--- NOTE | 2022-04-17 15:25 | History & Physical-Hospitalist ---
History of Present Illness HPI/Chief Complaint Chief complaint: Overdose requiring intubation History of present illness: This is a 56-year-old female who presented to the ER after overdosing on Ativan and ultimately required intubation. No other details are obtainable. Date Seen 04/17/22 Time Seen by a Provider: 05:30 Attending Physician [place] PCP Admitting Physician: Olga Cintron DO Attending Physician: Olga Cintron DO Referring Physician Date of Admission Apr 16, 2022 at 23:35 Home Medications & Allergies Home Medications Reviewed patient Home Medication Reconciliation performed by pharmacy medication reconciliations fitness technician and/or nursing. Patients Allergies have been reviewed. Allergies Allergies Coded Allergies No Known Drug Allergies (Unverified10/21/19) Past Ctkwrvc-Puxdwd-Jhlcoa Hx Patient Social History Marrital Status: Employed/Student: employed Tobacco Use?: No Smoking Status: Unknown if Ever Smoked Smokeless Tobacco Frequency: Unknown if Ever Used Use of E-Cig and/or Vaping Ghulam: Unknown if Ever Used Substance use?: No Substance type: Misuse of prescript meds Alcohol Use?: Yes Alcohol type: Hard Liquor Additional alcohol type: WHISKEY Pt feels they are or have been: Unable to obtain Seasonal Allergies Seasonal Allergies: No Current Status status: No status: No Advance Directives: Unable to obtain Communicates: Verbally Primary Language: Maori Preferred Spoken Language: Maori Is interpretation needed?: Unable to obtain Implanted or Applied Medical D: None Past Medical History Surgeries: Adenoidectomy, Tonsillectomy Hypertension Kidney Stones Cataract Loss of Vision: Denies Hearing Impairment: Denies Anxiety, Depression Blood Disorders: No PMHx: HTN Mood disorder Psoriasis Gestational diabetes SurgHx: Tonsillectomy Family Medical History CAD Under 55 Years Old, Diabetes Review of Systems ROS-Unable to Obtain: Intubated Constitutional: see HPI Physical Exam Physical Exam Vital Signs Vital Signs - First Documented 04/16/22 04/16/22 04/17/22 20:20 23:27 00:01 Temp 36.3 Pulse 110 Resp 18 B/P (MAP) 132/86 (101) Pulse Ox 92 O2 Delivery Room Air O2 Flow Rate 35.00 FiO2 35 Capillary Refill : Less Than 3 Seconds Height, Weight, BMI Height: '" Weight: lbs. oz. kg; 36.72 BMI Method: General Appearance: No Apparent Distress, Obese, Other (Sedated and intubated) Respiratory: Lungs Clear, Normal Breath Sounds Cardiovascular: Regular Rate, Rhythm Results Results/Procedures Labs Laboratory Tests 04/16/22 22:47 04/17/22 04:35 Patient resulted labs reviewed. Assessment/Plan Admission Diagnosis Assessment: Overdose Respiratory failure Ventilator dependent Plan: eICU appreciated Admission Status: Inpatient Order (span 2 midnights) Reason for Inpatient Admission: Respiratory failure Diagnosis/Problems Diagnosis/Problems (1) Suicide attempt Status: Acute (2) Benzodiazepine overdose Status: Acute Qualifiers: Encounter type: initial encounter Injury intent: intentional self-harm Qualified Codes: T42.4X2A - Poisoning by benzodiazepines, intentional self- harm, initial encounter (3) Respiratory failure with hypoxia Status: Acute Qualifiers: Chronicity: acute Qualified Codes: J96.01 - Acute respiratory failure with hypoxia OLGA CINTRON DO Apr 17, 2022 15:25
[2022-04-17] MEDS ORDERED: NS IV 1000 ML 1,000 ML IV SCH (19:00)
[2022-04-18] MEDS ORDERED: LACTATED RINGERS 1,000 ML IV SCH ×2 (02:15→02:23)
[2022-04-18 02:23] VITALS: BP 153/83
[2022-04-18] MEDS: NS IV 1000 ML 1,000 ML IV SCH ×3 (03:36→12:47)
[2022-04-18 04:20] LABS: ABG BASE EXCESS -5.2 MMOL/L (-2.5-2.5); ABG OXYGEN SATURATION 97 % (94-100); ABG PCO2 33 MMHG (35-45); ABG PH 7.38 (7.37-7.43); ABG PO2 83 MMHG (79-93); ABG TCO2 19.9 MMOL/L (21.0-31.0)
[2022-04-18 04:21] LABS: ALLENS TEST POSITIVE; INSPIRED O2 28%
[2022-04-18 04:22] LABS: PATIENT TEMP 37.4; VENTILATOR YES
[2022-04-18 04:34] LABS: BASOPHILS # (AUTO) 0.1 10^3/uL (0.0-0.1); BASOPHILS % (AUTO) 1 % (0-10); EOSINOPHILS # (AUTO) 0.2 10^3/uL (0.0-0.3); EOSINOPHILS % (AUTO) 1 % (0-10); HEMATOCRIT 40 % (35-52); HEMOGLOBIN 12.9 g/dL (11.5-16.0); LYMPHOCYTES # (AUTO) 2.3 10^3/uL (1.0-4.0); LYMPHOCYTES % (AUTO) 14 % (12-44); MEAN CORPUSCULAR HEMOGLOBIN 29 pg (25-34); MEAN CORPUSCULAR HGB CONC 33 g/dL (32-36); MEAN CORPUSCULAR VOLUME 89 fL (80-99); MONOCYTES % (AUTO) 6 % (0-12); NEUTROPHILS # (AUTO) 12.4 10^3/uL (1.8-7.8); NEUTROPHILS % (AUTO) 78 % (42-75); PLATELET COUNT 190 10^3/uL (130-400)
[2022-04-18 04:48] LABS: ALBUMIN 3.2 GM/DL (3.2-4.5)
[2022-04-18 04:49] LABS: POTASSIUM 3.9 MMOL/L (3.6-5.0)
[2022-04-18 04:50] LABS: CALCIUM 8.2 MG/DL (8.5-10.1)
[2022-04-18 04:51] LABS: TOTAL PROTEIN 6.1 GM/DL (6.4-8.2)
[2022-04-18 04:53] LABS: BILIRUBIN,TOTAL 0.6 MG/DL (0.1-1.0)
[2022-04-18 04:54] LABS: PHOSPHORUS 3.4 MG/DL (2.3-4.7)
[2022-04-18 04:55] LABS: CREATININE SERUM 0.77 MG/DL (0.60-1.30)
[2022-04-18 04:58] LABS: MAGNESIUM 1.8 MG/DL (1.6-2.4)
[2022-04-18] MEDS: POTASSIUM CL 10MEQ/50ML IVPB 50 ML IV SCH (05:07)
[2022-04-18] MEDS: KCL 20 MEQ TAB (K-DUR) PO SCH (05:07)
[2022-04-18] MEDS: MAGNESIUM 1 GM/100 ML IVPB 100 ML IV SCH (05:08)
--- NOTE | 2022-04-18 05:12 | Progress Note - Hospitalist ---
Subjective HPI/CC On Admission Date Seen by Provider: Apr 18, 2022 Time Seen by Provider: 05:30 Chief complaint: Overdose requiring intubation History of present illness: This is a 56-year-old female who presented to the ER after overdosing on Ativan and ultimately required intubation. No other details are obtainable. Subjective/Events-last exam Patient still intubated Vent settings are 450/16/5/28% Reviewed meds and labs Objective Exam Vital Signs Vital Signs Date Time Temp Pulse Resp B/P (MAP) Pulse Ox O2 Delivery O2 Flow Rate FiO2 04/18/22 14:00 62 18 147/87 95 Mechanical Ventilator 28.00 04/18/22 12:48 36.6 04/18/22 12:16 28 Capillary Refill : Less Than 3 Seconds General Appearance: Chronically ill, Other (Sedated and intubated) Respiratory: Lungs Clear, Normal Breath Sounds Cardiovascular: Regular Rate, Rhythm Results/Procedures Lab Laboratory Tests 04/18/22 04:25 Patient resulted labs reviewed. Assessment/Plan Assessment and Plan Assess & Plan/Chief Complaint Assessment: Overdose Respiratory failure Ventilator dependent Plan: eICU appreciated Critical Care Ventilator Management Diagnosis/Problems Diagnosis/Problems (1) Suicide attempt Status: Acute (2) Benzodiazepine overdose Status: Acute Qualifiers: Encounter type: initial encounter Injury intent: intentional self-harm Qualified Codes: T42.4X2A - Poisoning by benzodiazepines, intentional self- harm, initial encounter (3) Respiratory failure with hypoxia Status: Acute Qualifiers: Chronicity: acute Qualified Codes: J96.01 - Acute respiratory failure with hypoxia SHADI HUNT DO Apr 18, 2022 05:12
[2022-04-18 05:17] LABS: BASOPHILS % (MANUAL) 1 %; EOSINOPHILS % (MANUAL) 2 %; LYMPHOCYTES % (MANUAL) 16 %; MICROCYTOSIS SLIGHT; MONOCYTES % (MANUAL) 6 %; NEUTROPHILS % (MANUAL) 75 %; POLYCHROMASIA SLIGHT
[2022-04-18] MEDS: DexMEDEtomidine 250 ML DRIP 250 ML IV SCH ×3 (06:29→19:54)
[2022-04-18 06:56] VITALS: BP 140/83
[2022-04-18] MEDS: PANTOPRAZOLE 40 MG (PROTONIX) VIAL IV SCH (08:08)
--- NOTE | 2022-04-18 08:15 | Occ Therapy Progress Note ---
Therapy Progress Note OT orders received and chart reviewed. Pt is currently intubated/sedated. OT will continue to monitor pt and initiate tx when pt is more medically stable and able to actively participate in skilled therapy. CYNTHIA MORRIS OT Apr 18, 2022 08:14
--- NOTE | 2022-04-18 08:27 | Diagnostic Imaging Report ---
INDICATION: Followup, on a ventilator. EXAMINATION: Chest on 04/18/2022. COMPARISON: 04/16/2022. FINDINGS: The ET tube is stable in positioning. There is a feeding tube coursing towards the lower chest with its tip not seen distally. The heart is stable. The pulmonary vasculature is congested. There are low lung volumes with likely bibasilar atelectasis. No focal infiltrates, effusions, or pneumothorax appreciated. IMPRESSION: Findings of mild pulmonary vascular congestion. Dictated by: Dictated on workstation # [id number]
--- NOTE | 2022-04-18 08:51 | Tele-ICU Progress Note ---
Subjective Date Seen by a Provider: Apr 18, 2022 Time Seen by a Provider: 08:51 Subjective/Events-last exam Available chart/vitals/labs/images reviewed. Video assessment done using telemetry ICU camera, rest of exam as per RN. Discussion with the RN, exam as per RN. Hospital course This patient is admitted with suicidal ideation after ingestion of her benzodiazepines and large amount of alcohol. In view of the agitation and to protect airway she is intubated and put on mechanical ventilation. Earlier this morning she was given a sedation vacation however she did not tolerate she has been fighting the vent. She is back on propofol and Precedex. Even with the highest her doses she is getting agitated hence she is going to be started on fentanyl drip. As she is getting FOLFIRI I have cut down her IV fluids from 125 cc/h to 80 mL/h. Review of Systems ROS PER RN Sepsis Event Evaluation Height, Weight, BMI Height: '" Weight: lbs. oz. kg; 38.92 BMI Method: Exam Exam Patient acknowledged, consented, and participated in this virtual visit which was conducted using real time audio/video Vital Signs Date Time Temp Pulse Resp B/P (MAP) Pulse Ox O2 Delivery O2 Flow Rate FiO2 04/18/22 08:00 59 16 145/84 98 Mechanical Ventilator 28.00 04/18/22 07:00 61 04/18/22 07:00 60 16 141/82 96 Mechanical Ventilator 28.00 04/18/22 06:56 60 16 97 28 04/18/22 06:29 61 141/87 04/18/22 06:00 61 16 141/87 98 Mechanical Ventilator 28.00 04/18/22 05:00 60 16 141/83 98 Mechanical Ventilator 28.00 04/18/22 04:06 56 153/83 04/18/22 04:05 56 153/83 04/18/22 04:00 58 16 156/86 99 Mechanical Ventilator 28.00 04/18/22 04:00 100 Mechanical Ventilator 28 04/18/22 03:00 54 16 162/87 100 Mechanical Ventilator 28.00 04/18/22 02:23 56 16 98 28 04/18/22 02:00 55 16 159/84 99 Mechanical Ventilator 28.00 04/18/22 01:00 56 156/82 04/18/22 01:00 57 16 159/83 99 Mechanical Ventilator 28.00 04/18/22 00:54 56 04/18/22 00:07 99 Mechanical Ventilator 28 04/18/22 00:00 56 16 156/82 100 Mechanical Ventilator 28.00 04/17/22 23:44 61 158/84 04/17/22 23:00 60 16 155/81 99 Mechanical Ventilator 28.00 04/17/22 22:30 61 161/84 04/17/22 22:20 61 16 98 28 04/17/22 22:00 58 16 156/84 98 Mechanical Ventilator 28.00 04/17/22 21:00 59 16 159/83 98 Mechanical Ventilator 28.00 04/17/22 20:30 98 Mechanical Ventilator 28 04/17/22 20:00 69 16 157/82 94 Mechanical Ventilator 28.00 04/17/22 19:00 71 17 149/86 95 Mechanical Ventilator 28.00 04/17/22 19:00 72 04/17/22 18:15 70 22 93 28 04/17/22 18:00 63 16 125/73 95 Mechanical Ventilator 28.00 04/17/22 17:00 63 16 131/80 96 Mechanical Ventilator 28.00 04/17/22 16:38 129/81 04/17/22 16:30 36.4 04/17/22 16:00 Mechanical Ventilator 28 04/17/22 16:00 63 16 129/78 96 Mechanical Ventilator 28.00 04/17/22 15:00 64 16 123/72 95 Mechanical Ventilator 28.00 04/17/22 14:31 61 16 98 28 04/17/22 14:23 64 126/82 04/17/22 14:00 64 16 110/71 98 Mechanical Ventilator 28.00 04/17/22 13:08 135/83 04/17/22 13:00 64 16 135/83 97 Mechanical Ventilator 28.00 04/17/22 12:33 64 04/17/22 12:00 Mechanical Ventilator 28 04/17/22 12:00 63 16 129/88 97 Mechanical Ventilator 28.00 04/17/22 12:00 35.6 04/17/22 11:00 63 16 133/86 96 Mechanical Ventilator 28.00 04/17/22 10:16 62 16 97 28 04/17/22 10:00 62 16 124/86 97 Mechanical Ventilator 28.00 04/17/22 09:14 124/82 04/17/22 09:00 62 16 124/84 96 Mechanical Ventilator 28.00 I & O 04/18/22 07:00 Intake Total 4850 ml Output Total 625 ml Balance 4225 ml Height & Weight Height: '" Weight: lbs. oz. kg; 38.92 BMI Method: General Appearance: No Apparent Distress, Obese, Other (Sedated and intubated) HEENT: PERRL/EOMI, TMs Normal, Normal ENT Inspection, Pharynx Normal, Moist Mucous Membranes Neck: Full Range of Motion, Normal Inspection, Non Tender Respiratory: Lungs Clear, Normal Breath Sounds Cardiovascular: Regular Rate, Rhythm Capillary Refill: Less Than 3 Seconds Peripheral Pulses: 2+ Dorsalis Pedis (R), 2+ Left Dors-Pedis (L), 2+ Radial Pulses (R), 2+ Radial Pulses (L) Gastrointestinal: non tender, soft Extremity: Normal Capillary Refill, Normal Inspection, Normal Range of Motion, Non Tender, No Calf Tenderness, No Pedal Edema Neurologic/Psychiatric: Alert, Oriented x3, No Motor/Sensory Deficits, Normal Mood/Affect Skin: Normal Color, Warm/Dry Lymphatic: No Adenopathy Other comments PE PER RN Results Lab Laboratory Tests 04/16/22 22:47 04/17/22 04:35 04/18/22 04:25 Assessment/Plan Assessment/Plan 1. Acute hypoxic respiratory failure secondary to overdose of alcohol and benzodiazepines. 2. Suicidal ideation 3. History of a brain tumor details of which is not known 4. Alcohol abuse disorder. Recommendations 1. Continue mechanical ventilatory support with a tidal volume of 450ML,, respiratory rate 16, FiO2 28% and PEEP of 5%. 2. IV fluids will be decreased to 80 mL/h 3. We will give her DVT prophylaxis and ulcer prophylaxis 4. We will keep trying sedation vacation and possibly SBT every day to see whether we can wean her off the ventilator. Video visit made and usual assessment done and discussed with the HAND WORKER. Collaboration of treatment with the bedside consultants and IM PHYSICIANS Critical Care: Ventilator Management KELSEA DODGE MD Apr 18, 2022 08:51
[2022-04-18] MEDS: THIAMINE INJECTION 100 MG in NS (IVPB) 50 ML IV SCH (10:04)
[2022-04-18] MEDS: MULTIVIT W/MINERALS TAB (THERAGRAN M) NG SCH (10:04)
--- NOTE | 2022-04-18 10:25 | Physical Therapy Progress Note ---
Therapy Progress Note PT orders received and chart reviewed. Pt is currently intubated/sedated. PT will continue to monitor pt and initiate tx when pt is more medically stable and able to actively participate in skilled therapy. KHADRA MCDUFFIE PT Apr 18, 2022 10:25
[2022-04-18 10:55] VITALS: BP 154/67
[2022-04-18] MEDS: fentaNYL DRIP PRE-MIX 250 ML IV SCH (14:04)
[2022-04-18 14:44] VITALS: BP 153/86
[2022-04-18 18:49] VITALS: BP 128/77
[2022-04-18] MEDS: ENOXAPARIN 40 MG/0.4 ML (LOVENOX) SYR SC SCH (19:54)
[2022-04-18 22:44] VITALS: BP 114/69
[2022-04-19] MEDS: NS IV 1000 ML 1,000 ML IV SCH ×2 (01:12→15:33)
[2022-04-19 01:50] VITALS: BP 107/61
[2022-04-19 05:31] LABS: MAGNESIUM 1.5 MG/DL (1.6-2.4)
[2022-04-19 05:31] LABS: ABG OXYGEN SATURATION 95 % (94-100); ABG PCO2 34 MMHG (35-45); ABG PO2 69 MMHG (79-93); ABG TCO2 18.7 MMOL/L (21.0-31.0)
[2022-04-19 05:32] LABS: INSPIRED O2 28%; VENTILATOR YES
[2022-04-19 05:33] LABS: PATIENT TEMP 36.7
[2022-04-19 05:34] LABS: ABG PH 7.34 (7.37-7.43)
[2022-04-19] MEDS: fentaNYL DRIP PRE-MIX 250 ML IV SCH ×4 (05:34→22:20)
[2022-04-19] MEDS: DexMEDEtomidine 250 ML DRIP 250 ML IV SCH ×4 (05:34→22:21)
[2022-04-19 05:42] LABS: BILIRUBIN,TOTAL 0.4 MG/DL (0.1-1.0); CALCIUM 6.7 MG/DL (8.5-10.1); CREATININE SERUM 0.6 MG/DL (0.60-1.30); PHOSPHORUS 2.7 MG/DL (2.3-4.7); POTASSIUM 3.4 MMOL/L (3.6-5.0)
[2022-04-19 05:43] LABS: ALBUMIN 2.3 GM/DL (3.2-4.5); TOTAL PROTEIN 5.8 GM/DL (6.4-8.2); WHITE BLOOD COUNT 12.6 10^3/uL (4.3-11.0)
[2022-04-19 05:44] LABS: BASOPHILS # (AUTO) 0.1 10^3/uL (0.0-0.1); BASOPHILS % (AUTO) 0 % (0-10); EOSINOPHILS # (AUTO) 0.3 10^3/uL (0.0-0.3); EOSINOPHILS % (AUTO) 2 % (0-10); HEMATOCRIT 32 % (35-52); HEMOGLOBIN 11.1 g/dL (11.5-16.0); LYMPHOCYTES # (AUTO) 1.4 X 10^3 (1.0-4.0); LYMPHOCYTES % (AUTO) 11 % (12-44); MEAN CORPUSCULAR HEMOGLOBIN 32 pg (25-34); MEAN CORPUSCULAR HGB CONC 35 g/dL (32-36); MEAN CORPUSCULAR VOLUME 90 fL (80-99); MEAN PLATELET VOLUME 10.8 fL (9.0-12.2); MONOCYTES # (AUTO) 0.7 X 10^3 (0.0-1.0); MONOCYTES % (AUTO) 6 % (0-12); NEUTROPHILS # (AUTO) 10.1 X 10^3 (1.8-7.8); NEUTROPHILS % (AUTO) 81 % (42-75); PLATELET COUNT 148 10^3/uL (130-400)
[2022-04-19] MEDS: KCL 20 MEQ TAB (K-DUR) PO SCH (06:16)
[2022-04-19] MEDS: MAGNESIUM 1 GM/100 ML IVPB 100 ML IV SCH ×2 (06:16→06:39)
[2022-04-19] MEDS: POTASSIUM CL 10MEQ/50ML IVPB 50 ML IV SCH ×2 (06:16→06:39)
[2022-04-19 06:39] VITALS: BP 107/64
--- NOTE | 2022-04-19 06:50 | Occ Therapy Progress Note ---
Therapy Progress Note Pt is currently intubated. OT will continue to monitor and initiate treatment when pt is medically stable and able to actively participate in skilled therapy. CEDRICK TYSON Apr 19, 2022 06:50
[2022-04-19] MEDS: MULTIVIT W/MINERALS TAB (THERAGRAN M) NG SCH (07:05)
--- NOTE | 2022-04-19 07:52 | Physical Therapy Progress Note ---
Therapy Progress Note PT orders received and chart reviewed. Pt is currently intubated/sedated. PT will continue to monitor pt and initiate tx when pt is more medically stable and able to actively participate in skilled therapy. NATHANAEL ESQUIVEL PT Apr 19, 2022 07:52
[2022-04-19] MEDS: PANTOPRAZOLE 40 MG (PROTONIX) VIAL IV SCH ×3 (08:03→20:56)
[2022-04-19] MEDS: THIAMINE INJECTION 100 MG in NS (IVPB) 50 ML IV SCH (08:31)
--- NOTE | 2022-04-19 08:55 | Tele-ICU Progress Note ---
Subjective Date Seen by a Provider: Apr 19, 2022 Time Seen by a Provider: 08:54 Subjective/Events-last exam (Tele-ICU Physician , Progress Note ) Available chart/ vitals / labs / Images reviewed Video assessment done using teleICU camera, rest of exam as per RN Discussed with RN , EXAM PER RN Events overnight : Afebrile FiO2 - 30 I/O = pos 800 Drips: Pressors: , hemodynamically stable Sedation gtt: fent 75 precedex 1.5 propofol 50 ( RASS -2 ) VENT SETTINGS and ABG reviewed Not candidate for SBT today REVIEWED Cardiovascular Stability / Sedation Score / FI02/PEEP / ABG / CXR Consultants: Hospital course: (04/17) Admitted a 56 y/o intentional ingestion of 1 gallon whiskey and #20~1mg Ativan tabs in a suidce attempt. Patient very aggressive in ER. Intubated for hypoxia and airway protection. A/P Acute resp failure- intubated to protect airway = AC 16 450 30% +5 - eill tryu to decrease sendation and do SBT - increased nebs for secretions OD of alcohol and benzodiazepines - -to check with pharm if need to ressume antiphychotics - cont to wean sedation - phych consult latter Elevated TGL 18K - switching p[ropofol to versed Coffee ground on NG - Hb stable - increased PPI to BID , follow ETOH abuse - thiamine , folate History of a brain tumor reported by patient inER -details of which is not known - CT head 04/16 Calcifications stable since 2019. No acute intracranial abnormality. Lines : R PICC 04/18 (Central Line Necessity Reviewed) Rick: + OG: + Nutrition: npo Analgesia: Anxiety/ delirium VTE Prophylaxis: l;ob 30 Stress Ulcer Prophylaxis: ppi bid Plans in collaboration with bedside consultants and IM MDs. Discussed with RN to reach out if any questions or concerns A total of 33 minutes of critical care time was devoted to this patient today, required to treat and/or prevent further deterioration of critical care condition ( as above) . Sepsis Event Evaluation Height, Weight, BMI Height: '" Weight: lbs. oz. kg; 39.07 BMI Method: Exam Exam Patient acknowledged, consented, and participated in this virtual visit which was conducted using real time audio/video Vital Signs Date Time Temp Pulse Resp B/P (MAP) Pulse Ox O2 Delivery O2 Flow Rate FiO2 04/19/22 08:00 37.0 04/19/22 07:20 36.8 66 16 96/57 91 Mechanical Ventilator 30.00 04/19/22 07:00 66 04/19/22 06:39 65 16 95 28 04/19/22 06:00 66 16 99/60 95 Mechanical Ventilator 28.00 04/19/22 05:35 66 107/61 04/19/22 05:34 66 107/61 04/19/22 05:34 66 107/61 04/19/22 05:00 66 16 99/56 95 Mechanical Ventilator 28.00 04/19/22 04:00 36.7 04/19/22 04:00 67 16 106/61 95 Mechanical Ventilator 28.00 04/19/22 04:00 100 Mechanical Ventilator 28 04/19/22 03:00 67 16 107/62 95 Mechanical Ventilator 28.00 04/19/22 02:00 66 16 108/65 96 Mechanical Ventilator 28.00 04/19/22 01:50 66 16 96 28 04/19/22 01:00 65 16 114/67 96 Mechanical Ventilator 28.00 04/19/22 00:50 66 04/19/22 00:00 36.3 04/19/22 00:00 66 16 110/65 96 Mechanical Ventilator 28.00 04/18/22 23:59 100 Mechanical Ventilator 28 04/18/22 23:00 66 16 111/68 96 Mechanical Ventilator 28.00 04/18/22 22:44 67 16 96 28 04/18/22 22:00 65 16 121/74 96 Mechanical Ventilator 28.00 04/18/22 21:38 66 128/77 04/18/22 21:38 66 128/77 04/18/22 21:00 66 16 125/73 97 Mechanical Ventilator 28.00 04/18/22 20:00 66 16 121/72 97 Mechanical Ventilator 28.00 04/18/22 20:00 100 Mechanical Ventilator 28 04/18/22 19:54 66 128/77 04/18/22 19:28 36.9 04/18/22 19:00 65 16 128/76 95 Mechanical Ventilator 28.00 04/18/22 19:00 66 04/18/22 18:49 66 16 94 28 04/18/22 18:00 65 16 133/80 96 Mechanical Ventilator 28.00 04/18/22 17:00 64 16 135/79 97 Mechanical Ventilator 28.00 04/18/22 16:20 100 Mechanical Ventilator 28 04/18/22 16:08 36.7 04/18/22 16:00 63 16 136/80 96 Mechanical Ventilator 28.00 04/18/22 15:00 62 16 146/85 97 Mechanical Ventilator 28.00 04/18/22 14:45 60 151/86 04/18/22 14:44 62 16 97 28 04/18/22 14:44 60 151/86 04/18/22 14:00 62 18 147/87 95 Mechanical Ventilator 28.00 04/18/22 13:14 58 149/87 04/18/22 13:00 58 16 149/87 98 Mechanical Ventilator 28.00 04/18/22 12:56 60 04/18/22 12:48 36.6 04/18/22 12:16 100 Mechanical Ventilator 28 04/18/22 12:00 61 16 179/75 97 Mechanical Ventilator 28.00 04/18/22 11:00 66 15 144/65 95 Mechanical Ventilator 28.00 04/18/22 10:55 65 16 96 28 04/18/22 10:00 69 24 159/70 96 Mechanical Ventilator 28.00 04/18/22 09:46 36.5 04/18/22 09:04 59 136/79 04/18/22 09:03 59 136/79 04/18/22 09:00 63 16 136/79 98 Mechanical Ventilator 28.00 I & O 04/19/22 06:59 Intake Total 200 ml Output Total 1700 ml Balance -1500 ml Height & Weight Height: '" Weight: lbs. oz. kg; 39.07 BMI Method: General Appearance: Chronically ill, Other (Sedated and intubated) HEENT: PERRL/EOMI, TMs Normal, Normal ENT Inspection, Pharynx Normal, Moist Mucous Membranes Neck: Full Range of Motion, Normal Inspection, Non Tender Respiratory: Lungs Clear, Normal Breath Sounds Cardiovascular: Regular Rate, Rhythm Capillary Refill: Less Than 3 Seconds Peripheral Pulses: 2+ Dorsalis Pedis (R), 2+ Left Dors-Pedis (L), 2+ Radial Pulses (R), 2+ Radial Pulses (L) Gastrointestinal: non tender, soft Extremity: Normal Capillary Refill, Normal Inspection, Normal Range of Motion, Non Tender, No Calf Tenderness, No Pedal Edema Neurologic/Psychiatric: Alert, Oriented x3, No Motor/Sensory Deficits, Normal Mood/Affect Skin: Normal Color, Warm/Dry Lymphatic: No Adenopathy Results Lab Laboratory Tests 04/18/22 04:25 04/19/22 04:45 Assessment/Plan Assessment/Plan ` ASUNCION GRIMM MD Apr 19, 2022 08:54
[2022-04-19] MEDS: MIDAZOLAM DRIP PRE-MIX 100 ML IV SCH ×2 (09:16→20:57)
[2022-04-19 11:11] VITALS: BP 114/69
[2022-04-19] MEDS ORDERED: RT-ALBUTEROL/IPRATROPIUM 3 ML (DUONEB) VIAL INH SCH (12:00)
[2022-04-19] MEDS ORDERED: LISI10TA25 PO (12:07)
[2022-04-19] MEDS ORDERED: DOXA2TAB2 PO (12:07)
[2022-04-19] MEDS ORDERED: TRAZ150T72 PO (12:07)
[2022-04-19] MEDS ORDERED: NF-LAMO200 PO (12:07)
[2022-04-19] MEDS ORDERED: LORA-405 PO ×2 (12:07)
[2022-04-19] MEDS ORDERED: SERT-414 PO (12:07)
[2022-04-19] MEDS: RT-ALBUTEROL/IPRATROPIUM 3 ML (DUONEB) VIAL INH SCH ×2 (15:02→21:31)
[2022-04-19 15:06] VITALS: BP 125/71
--- NOTE | 2022-04-19 15:07 | Progress Note ---
Subjective Subjective/Events-last exam Pt remains intubated, opens eyes and turns head when spoken to and touched this morning. Objective Exam Last Set of Vital Signs Vital Signs Date Time Temp Pulse Resp B/P (MAP) Pulse Ox O2 Delivery O2 Flow Rate FiO2 04/19/22 14:00 81 16 119/68 94 Mechanical Ventilator 30.00 04/19/22 12:11 36.0 04/19/22 12:05 30 Capillary Refill : Less Than 3 Seconds I&O Intake and Output 04/19/22 00:00 Intake Total 2300 ml Output Total 1475 ml Balance 825 ml Intake Oral 0 ml IV Total 2300 ml Output Urine Total 1425 ml Oral Regurgitation 50 ml General: Other (opens eyes to voice) Lungs: Clear to Auscultation Heart: Regular Rate Abdomen: Normal Bowel Sounds, Soft Extremities: No Edema Results/Procedures Lab Laboratory Tests 04/19/22 04:45: White Blood Count 12.6H, Red Blood Count 3.50L, Hemoglobin 11.1L, Hematocrit 32L , Mean Corpuscular Volume 90, Mean Corpuscular Hemoglobin 32, Mean Corpuscular Hemoglobin Concent 35, Red Cell Distribution Width 13.7, Platelet Count 148, Mean Platelet Volume 10.8, Immature Granulocyte % (Auto) 0, Neutrophils (%) (Auto) 81H, Lymphocytes (%) (Auto) 11L, Monocytes (%) (Auto) 6, Eosinophils (%) (Auto) 2, Basophils (%) (Auto) 0, Neutrophils # (Auto) 10.1H, Lymphocytes # (Auto) 1.4, Monocytes # (Auto) 0.7, Eosinophils # (Auto) 0.3, Basophils # (Auto) 0.1, Immature Granulocyte # (Auto) 0.1, Sodium Level 135, Potassium Level 3.4L, Chloride Level 112H, Carbon Dioxide Level 13L, Anion Gap 10, Blood Urea Nitrogen 5L, Creatinine 0.60, Estimat Glomerular Filtration Rate 107, BUN/Creatinine Ratio 8, Glucose Level 93, Calcium Level 6.7L, Corrected Calcium 8.1L, Phosphorus Level 2.7, Magnesium Level 1.5L, Total Bilirubin 0.4, Aspartate Amino Transf (AST/SGOT) 14, Alanine Aminotransferase (ALT/SGPT) 14, Alkaline Phosphatase 58, Total Protein 5.8L, Albumin 2.3L, Triglycerides Level 1876H 04/19/22 05:10: Blood Gas Puncture Site LEFT RADIAL, Blood Gas Patient Temperature 36.7, Arterial Blood pH 7.34*L, Arterial Blood Partial Pressure CO2 34L, Arterial Blood Partial Pressure O2 69L, Arterial Blood HCO3 18L, Arterial Blood Total CO2 18.7L, Arterial Blood Oxygen Saturation 95, Arterial Blood Base Excess -7.0L, Rubén Test UNKNOWN, Blood Gas Ventilator Setting YES, Blood Gas Inspired Oxygen 28% Microbiology 04/17/22 Gram Stain - Final, Resulted 04/17/22 Sputum Culture - Preliminary, Resulted Usual upper respiratory yue Assessment/Plan Assessment/Plan (1) Respiratory failure with hypoxia Status: Acute Assessment & Plan: Secondary to EtOH and benzodiazepine overdose Qualifiers: Qualified Codes: J96.01 - Acute respiratory failure with hypoxia (2) Benzodiazepine overdose Status: Acute Assessment & Plan: Requiring intubation for somnolence and hypoxia/hypoventilation. Appreciate Eula recommendations. Qualifiers: Qualified Codes: T42.4X2A - Poisoning by benzodiazepines, intentional self- harm, initial encounter (3) Suicide attempt Status: Acute Assessment & Plan: Mental health eval when medically stable (4) Pupil diameter unequal Status: Acute Assessment & Plan: Per ER notes present on admission, CT head okay (5) Leukocytosis Status: Acute Assessment & Plan: No clear sign of infection, suspect stress reaction (6) Subependymoma Status: Chronic Assessment & Plan: Per history, uncertain chronicity or significance. (7) Alcohol abuse Status: Acute (8) DVT prophylaxis Status: Acute Assessment & Plan: Enoxaparin MIKE OROZCO MD Apr 19, 2022 15:07
[2022-04-19 18:46] VITALS: BP 116/65
[2022-04-19] MEDS: ENOXAPARIN 40 MG/0.4 ML (LOVENOX) SYR SC SCH (20:56)
[2022-04-19 21:32] VITALS: BP 111/70
[2022-04-20] VITALS (7 sets, daily range): BP systolic 95–204; BP diastolic 54–102
[2022-04-20] MEDS: RT-ALBUTEROL/IPRATROPIUM 3 ML (DUONEB) VIAL INH SCH ×4 (02:03→18:29)
[2022-04-20] MEDS: NS IV 1000 ML 1,000 ML IV SCH ×2 (02:21→17:10)
[2022-04-20] MEDS: fentaNYL DRIP PRE-MIX 250 ML IV SCH ×2 (02:21→07:49)
[2022-04-20 03:51] LABS: BASOPHILS # (AUTO) 0.1 10^3/uL (0.0-0.1); BASOPHILS % (AUTO) 0 % (0-10); EOSINOPHILS # (AUTO) 0.1 10^3/uL (0.0-0.3); EOSINOPHILS % (AUTO) 1 % (0-10); HEMATOCRIT 36 % (35-52); HEMOGLOBIN 11.2 g/dL (11.5-16.0); LYMPHOCYTES # (AUTO) 1.2 10^3/uL (1.0-4.0); LYMPHOCYTES % (AUTO) 8 % (12-44); MEAN CORPUSCULAR HEMOGLOBIN 29 pg (25-34); MEAN CORPUSCULAR HGB CONC 32 g/dL (32-36); MEAN CORPUSCULAR VOLUME 92 fL (80-99); MEAN PLATELET VOLUME 10.2 fL (9.0-12.2); MONOCYTES % (AUTO) 7 % (0-12); NEUTROPHILS % (AUTO) 84 % (42-75); PLATELET COUNT 201 10^3/uL (130-400); WHITE BLOOD COUNT 14.4 10^3/uL (4.3-11.0)
[2022-04-20 03:59] LABS: ALBUMIN 2.7 GM/DL (3.2-4.5); POTASSIUM 4.1 MMOL/L (3.6-5.0)
[2022-04-20 04:00] LABS: CALCIUM 7.7 MG/DL (8.5-10.1)
[2022-04-20 04:02] LABS: TOTAL PROTEIN 5.3 GM/DL (6.4-8.2)
[2022-04-20 04:04] LABS: BILIRUBIN,TOTAL 0.8 MG/DL (0.1-1.0)
[2022-04-20 04:05] LABS: CREATININE SERUM 0.73 MG/DL (0.60-1.30)
[2022-04-20 04:08] LABS: MAGNESIUM 1.7 MG/DL (1.6-2.4)
[2022-04-20] MEDS: KCL 20 MEQ TAB (K-DUR) PO SCH (04:32)
[2022-04-20] MEDS: POTASSIUM CL 10MEQ/50ML IVPB 50 ML IV SCH (04:32)
[2022-04-20] MEDS: MAGNESIUM 1 GM/100 ML IVPB 100 ML IV SCH ×3 (04:33→05:34)
[2022-04-20] MEDS: DexMEDEtomidine 250 ML DRIP 250 ML IV SCH ×2 (05:06→12:10)
[2022-04-20] MEDS: MULTIVIT W/MINERALS TAB (THERAGRAN M) NG SCH (05:35)
--- NOTE | 2022-04-20 06:47 | Occ Therapy Progress Note ---
Therapy Progress Note Pt is currently intubated. OT will continue to monitor and initiate treatment when pt is medically stable and able to actively participate in skilled therapy. CEDRICK TYSON Apr 20, 2022 06:47
--- NOTE | 2022-04-20 07:04 | Progress Note ---
Subjective Subjective/Events-last exam Remains intubated, following instructions sometimes during sedation vacations, but not following all instructions this morning. Objective Exam Last Set of Vital Signs Vital Signs Date Time Temp Pulse Resp B/P (MAP) Pulse Ox O2 Delivery O2 Flow Rate FiO2 04/20/22 06:00 80 28 94/53 93 Mechanical Ventilator 30.00 04/20/22 04:00 30 04/20/22 03:37 37.3 Capillary Refill : Less Than 3 Seconds I&O Intake and Output 04/20/22 00:00 Intake Total 2700 ml Output Total 1330 ml Balance 1370 ml Intake Oral 0 ml IV Total 2700 ml Output Urine Total 1075 ml Oral Regurgitation 255 ml Heart: Regular Rate, Other (ronchi) Abdomen: Normal Bowel Sounds, Other (distended) Extremities: No Edema Results/Procedures Lab Laboratory Tests 04/20/22 03:45: White Blood Count 14.4H, Red Blood Count 3.88, Hemoglobin 11.2L, Hematocrit 36, Mean Corpuscular Volume 92, Mean Corpuscular Hemoglobin 29, Mean Corpuscular Hemoglobin Concent 32, Red Cell Distribution Width 14.0, Platelet Count 201, Mean Platelet Volume 10.2, Immature Granulocyte % (Auto) 1, Neutrophils (%) (Auto) 84H, Lymphocytes (%) (Auto) 8L, Monocytes (%) (Auto) 7, Eosinophils (%) (Auto) 1, Basophils (%) (Auto) 0, Neutrophils # (Auto) 12.0H, Lymphocytes # (Auto) 1.2, Monocytes # (Auto) 1.0, Eosinophils # (Auto) 0.1, Basophils # (Auto) 0.1, Immature Granulocyte # (Auto) 0.1, Sodium Level 139, Potassium Level 4.1, Chloride Level 113H, Carbon Dioxide Level 16L, Anion Gap 10, Blood Urea Nitrogen 7, Creatinine 0.73, Estimat Glomerular Filtration Rate 98, BUN/Creatinine Ratio 10, Glucose Level 99, Calcium Level 7.7L, Corrected Calcium 8.7, Phosphorus Level 3.0, Magnesium Level 1.7, Total Bilirubin 0.8, Aspartate Amino Transf (AST/SGOT) 13, Alanine Aminotransferase (ALT/SGPT) 14, Alkaline Phosphatase 74, Total Protein 5.3L, Albumin 2.7L Microbiology 04/17/22 Gram Stain - Final, Resulted 04/17/22 Sputum Culture - Preliminary, Resulted Usual upper respiratory yue Assessment/Plan Assessment/Plan (1) Respiratory failure with hypoxia Status: Acute Assessment & Plan: Secondary to EtOH and benzodiazepine overdose Qualifiers: Qualified Codes: J96.01 - Acute respiratory failure with hypoxia (2) Benzodiazepine overdose Status: Acute Assessment & Plan: Requiring intubation for somnolence and hypoxia/hypoventilation. Appreciate Eula recommendations. Qualifiers: Qualified Codes: T42.4X2A - Poisoning by benzodiazepines, intentional self- harm, initial encounter (3) Suicide attempt Status: Acute Assessment & Plan: Mental health eval when medically stable (4) Pupil diameter unequal Status: Acute Assessment & Plan: Per ER notes present on admission, CT head okay (5) Leukocytosis Status: Acute Assessment & Plan: No clear sign of infection, suspect stress reaction, sputum culture per Eual (6) Subependymoma Status: Chronic Assessment & Plan: Per history, uncertain chronicity or significance. (7) Alcohol abuse Status: Acute (8) DVT prophylaxis Status: Acute Assessment & Plan: Enoxaparin MIKE OROZCO MD Apr 20, 2022 07:04
[2022-04-20] MEDS: THIAMINE INJECTION 100 MG in NS (IVPB) 50 ML IV SCH (07:49)
[2022-04-20] MEDS: MIDAZOLAM DRIP PRE-MIX 100 ML IV SCH (07:49)
[2022-04-20] MEDS: PANTOPRAZOLE 40 MG (PROTONIX) VIAL IV SCH ×2 (07:50→20:01)
--- NOTE | 2022-04-20 07:57 | Physical Therapy Progress Note ---
Therapy Progress Note Pt is currently intubated/sedated. PT will continue to monitor pt and initiate tx when pt is more medically stable and able to actively participate in skilled therapy. MANISH CAR PT Apr 20, 2022 07:57
--- NOTE | 2022-04-20 10:57 | Tele-ICU Progress Note ---
Subjective Date Seen by a Provider: Apr 20, 2022 Time Seen by a Provider: 10:56 Subjective/Events-last exam (Tele-ICU Physician , Progress Note ) Available chart/ vitals / labs / Images reviewed Video assessment done using teleICU camera, rest of exam as per RN Discussed with RN , EXAM PER RN Events overnight : Afebrile FiO2 - 30 I/O = pos 1300 Drips: ns 80 Pressors: , hemodynamically stable Sedation gtt: fent 200 precedex 1.5 propofol OFF versed 6 ( RASS -2 ) VENT SETTINGS and ABG reviewed candidate for SBT today REVIEWED Cardiovascular Stability / Sedation Score / FI02/PEEP / ABG / CXR Consultants: Hospital course: (04/17) Admitted a 56 y/o intentional ingestion of 1 gallon whiskey and #20~1mg Ativan tabs in a suidce attempt. Patient very aggressive in ER. Intubated for hypoxia and airway protection. A/P Acute resp failure- intubated to protect airway -AC 16 450 30% +5 - try to decrease sedation and do SBT- follow commands intermittently last night as per report - increased nebs for secretions OD of alcohol and benzodiazepines - -to check with pharm if need to ressume antiphychotics - cont to wean sedation - phych consult latter Elevated TGL 18K - switching p[ropofol to versed Coffee ground on NG - Hb stable - increased PPI to BID , follow ETOH abuse - thiamine , folate History of a brain tumor reported by patient inER -details of which is not known - CT head 04/16 Calcifications stable since 2019. No acute intracranial abnormality. Lines : R PICC 04/18 (Central Line Necessity Reviewed) Rick: + OG: + Nutrition: npo Analgesia: Anxiety/ delirium VTE Prophylaxis: l;ob 30 Stress Ulcer Prophylaxis: ppi bid Plans in collaboration with bedside consultants and IM MDs. Discussed with RN to reach out if any questions or concerns A total of 33 minutes of critical care time was devoted to this patient today, required to treat and/or prevent further deterioration of critical care condition ( as above) . Sepsis Event Evaluation Height, Weight, BMI Height: '" Weight: lbs. oz. kg; 39.58 BMI Method: Exam Exam Patient acknowledged, consented, and participated in this virtual visit which was conducted using real time audio/video Vital Signs Date Time Temp Pulse Resp B/P (MAP) Pulse Ox O2 Delivery O2 Flow Rate FiO2 04/20/22 10:00 82 16 102/57 96 Mechanical Ventilator 30.00 04/20/22 09:00 81 21 98/54 95 Mechanical Ventilator 30.00 04/20/22 08:00 95 Mechanical Ventilator 30 04/20/22 08:00 84 16 97/54 94 Mechanical Ventilator 30.00 04/20/22 08:00 37.3 04/20/22 07:49 78 16 95/54 04/20/22 07:23 78 16 92 30 04/20/22 07:00 82 9 98/53 95 Mechanical Ventilator 30.00 04/20/22 06:39 82 04/20/22 06:00 80 28 94/53 93 Mechanical Ventilator 30.00 04/20/22 05:06 84 04/20/22 05:00 99 11 94/57 95 Mechanical Ventilator 30.00 04/20/22 04:19 86 16 94 04/20/22 04:00 95 8 125/68 94 Mechanical Ventilator 30.00 04/20/22 04:00 96 Mechanical Ventilator 30 04/20/22 03:37 37.3 Mechanical Ventilator 30.00 04/20/22 03:00 89 17 104/61 90 Mechanical Ventilator 30.00 04/20/22 02:03 81 16 92 28 04/20/22 02:00 82 16 110/64 93 Mechanical Ventilator 30.00 04/20/22 01:00 76 04/20/22 01:00 75 16 107/59 96 Mechanical Ventilator 30.00 04/20/22 00:00 37.0 Mechanical Ventilator 30.00 04/20/22 00:00 73 16 103/59 93 Mechanical Ventilator 30.00 04/19/22 23:24 96 Mechanical Ventilator 30 04/19/22 23:00 75 16 107/63 92 Mechanical Ventilator 30.00 04/19/22 22:21 76 04/19/22 22:00 81 91/50 92 Mechanical Ventilator 30.00 04/19/22 21:32 77 16 96 30 04/19/22 21:00 73 107/69 95 Mechanical Ventilator 30.00 04/19/22 20:57 73 16 04/19/22 20:00 37.0 96 Mechanical Ventilator 30.00 04/19/22 20:00 75 16 115/67 95 Mechanical Ventilator 30.00 04/19/22 20:00 96 Mechanical Ventilator 30 04/19/22 19:00 76 04/19/22 19:00 73 16 118/69 93 Mechanical Ventilator 30.00 04/19/22 18:46 753 16 93 30 04/19/22 18:00 79 16 116/67 92 Mechanical Ventilator 30.00 04/19/22 17:00 78 18 111/63 93 Mechanical Ventilator 30.00 04/19/22 16:30 91 Mechanical Ventilator 30 04/19/22 16:26 37.1 04/19/22 16:00 81 16 105/63 92 Mechanical Ventilator 30.00 04/19/22 15:33 82 116/65 04/19/22 15:06 75 16 94 28 04/19/22 15:00 74 21 115/67 96 Mechanical Ventilator 30.00 04/19/22 14:00 81 16 119/68 94 Mechanical Ventilator 30.00 04/19/22 13:00 78 16 108/65 92 Mechanical Ventilator 30.00 04/19/22 13:00 78 04/19/22 12:11 36.0 04/19/22 12:05 92 Mechanical Ventilator 30 04/19/22 12:00 37.5 04/19/22 12:00 71 17 105/63 93 Mechanical Ventilator 30.00 04/19/22 11:11 70 21 93 28 04/19/22 11:00 68 16 123/75 94 Mechanical Ventilator 30.00 I & O 04/20/22 06:59 Intake Total 4400 ml Output Total 1530 ml Balance 2870 ml Height & Weight Height: '" Weight: lbs. oz. kg; 39.58 BMI Method: General Appearance: Chronically ill, Other (Sedated and intubated) HEENT: PERRL/EOMI, TMs Normal, Normal ENT Inspection, Pharynx Normal, Moist Mucous Membranes Neck: Full Range of Motion, Normal Inspection, Non Tender Respiratory: Lungs Clear, Normal Breath Sounds Cardiovascular: Regular Rate, Rhythm Capillary Refill: Less Than 3 Seconds Peripheral Pulses: 2+ Dorsalis Pedis (R), 2+ Left Dors-Pedis (L), 2+ Radial Pulses (R), 2+ Radial Pulses (L) Gastrointestinal: non tender, soft Extremity: Normal Capillary Refill, Normal Inspection, Normal Range of Motion, Non Tender, No Calf Tenderness, No Pedal Edema Neurologic/Psychiatric: Alert, Oriented x3, No Motor/Sensory Deficits, Normal Mood/Affect Skin: Normal Color, Warm/Dry Lymphatic: No Adenopathy Results Lab Laboratory Tests 04/19/22 04:45 04/20/22 03:45 Assessment/Plan Assessment/Plan 1 ASUNCION GRIMM MD Apr 20, 2022 10:57
[2022-04-20] MEDS ORDERED: fentaNYL INJ 100 MCG/2 ML AMP ONE (14:34)
[2022-04-20] MEDS ORDERED: fentaNYL INJ 100 MCG/2 ML AMP IVP ONE (14:45)
[2022-04-20] MEDS ORDERED: HALOPERIDOL 5 MG/ML (HALDOL) VIAL IV ONE (15:00)
[2022-04-20] MEDS ORDERED: HALOPERIDOL 5 MG/ML (HALDOL) VIAL IV PRN (16:00)
[2022-04-20 17:55] LABS: ABG OXYGEN SATURATION 95 % (94-100); ABG PCO2 39 MMHG (35-45); ABG PO2 83 MMHG (79-93)
[2022-04-20 17:56] LABS: ABG PH 7.24 (7.37-7.43)
[2022-04-20 17:57] LABS: INSPIRED O2 50%; VENTILATOR NO
[2022-04-20] MEDS: HALOPERIDOL 5 MG/ML (HALDOL) VIAL IJ PRN (18:56)
[2022-04-20] MEDS: ENOXAPARIN 40 MG/0.4 ML (LOVENOX) SYR SC SCH (20:01)
[2022-04-20 20:10] LABS: POTASSIUM 3.6 MMOL/L (3.6-5.0)
[2022-04-20 20:12] LABS: CALCIUM 7.4 MG/DL (8.5-10.1)
[2022-04-20 20:13] LABS: ABG BASE EXCESS -8.4 MMOL/L (-2.5-2.5); ABG OXYGEN SATURATION 98 % (94-100); ABG PCO2 36 MMHG (35-45); ABG PO2 88 MMHG (79-93); ABG TCO2 18.2 MMOL/L (21.0-31.0)
[2022-04-20 20:16] LABS: CREATININE SERUM 0.66 MG/DL (0.60-1.30)
[2022-04-20 20:16] LABS: ABG PH 7.29 (7.37-7.43); INSPIRED O2 45%; PATIENT TEMP 97.3; VENTILATOR NO
[2022-04-20] MEDS: fentaNYL INJ 100 MCG/2 ML AMP IVP PRN (22:05)
[2022-04-21] MEDS: DexMEDEtomidine 250 ML DRIP 250 ML IV SCH (00:02)
[2022-04-21] MEDS: fentaNYL INJ 100 MCG/2 ML AMP IVP PRN ×2 (01:50→05:38)
[2022-04-21] MEDS: HALOPERIDOL 5 MG/ML (HALDOL) VIAL IJ PRN ×3 (02:30→21:26)
[2022-04-21] MEDS: RT-ALBUTEROL/IPRATROPIUM 3 ML (DUONEB) VIAL INH SCH ×4 (02:53→19:35)
[2022-04-21 02:54] VITALS: BP 120/94
[2022-04-21 03:33] LABS: BASOPHILS # (AUTO) 0.1 10^3/uL (0.0-0.1); BASOPHILS % (AUTO) 0 % (0-10); EOSINOPHILS # (AUTO) 0.1 10^3/uL (0.0-0.3); EOSINOPHILS % (AUTO) 0 % (0-10); HEMATOCRIT 33 % (35-52); HEMOGLOBIN 10.5 g/dL (11.5-16.0); LYMPHOCYTES % (AUTO) 6 % (12-44); MEAN CORPUSCULAR HEMOGLOBIN 29 pg (25-34); MEAN CORPUSCULAR HGB CONC 32 g/dL (32-36); MEAN CORPUSCULAR VOLUME 90 fL (80-99); MEAN PLATELET VOLUME 9.7 fL (9.0-12.2); MONOCYTES # (AUTO) 1.1 10^3/uL (0.0-1.0); MONOCYTES % (AUTO) 7 % (0-12); NEUTROPHILS % (AUTO) 85 % (42-75); PLATELET COUNT 215 10^3/uL (130-400); WHITE BLOOD COUNT 15.3 10^3/uL (4.3-11.0)
[2022-04-21 03:45] LABS: ALBUMIN 2.8 GM/DL (3.2-4.5); POTASSIUM 3.7 MMOL/L (3.6-5.0)
[2022-04-21 03:46] LABS: CALCIUM 8.3 MG/DL (8.5-10.1)
[2022-04-21 03:47] LABS: TOTAL PROTEIN 5.6 GM/DL (6.4-8.2)
[2022-04-21 03:48] LABS: ABG BASE EXCESS -5.4 MMOL/L (-2.5-2.5); ABG OXYGEN SATURATION 89 % (94-100); ABG PCO2 36 MMHG (35-45); ABG PH 7.35 (7.37-7.43); ABG PO2 53 MMHG (79-93); ABG TCO2 20.5 MMOL/L (21.0-31.0); ALLENS TEST YES-POS; INSPIRED O2 45%; PATIENT TEMP 36.4; VENTILATOR NO
[2022-04-21 03:49] LABS: BILIRUBIN,TOTAL 1.3 MG/DL (0.1-1.0)
[2022-04-21 03:50] LABS: PHOSPHORUS 1.7 MG/DL (2.3-4.7)
[2022-04-21 03:51] LABS: CREATININE SERUM 0.65 MG/DL (0.60-1.30)
[2022-04-21 03:53] LABS: MAGNESIUM 1.8 MG/DL (1.6-2.4)
[2022-04-21] MEDS: POTASSIUM CL 10MEQ/50ML IVPB 50 ML IV SCH (04:15)
[2022-04-21] MEDS: MAGNESIUM 1 GM/100 ML IVPB 100 ML IV SCH (04:15)
[2022-04-21] MEDS: KCL 20 MEQ TAB (K-DUR) PO SCH (04:16)
[2022-04-21] MEDS: MULTIVIT W/MINERALS TAB (THERAGRAN M) NG SCH (06:27)
[2022-04-21 07:25] VITALS: BP 183/107
--- NOTE | 2022-04-21 08:09 | Diagnostic Imaging Report ---
CHEST 1 VIEW, AP/PA ONLY Indication: Hypoxia. Comparison: 04/18/2022 Findings: ETT and enteric tubes have been removed. Right PICC has tip terminating in the lower SVC. Improved aeration within the lungs but there are persistent areas of atelectasis. No pleural effusion or pneumothorax. Impression: 1. Improved aeration within lung bases but persistent opacities are likely due to atelectasis. Dictated by: Dictated on workstation # [id number]
[2022-04-21] MEDS: PANTOPRAZOLE 40 MG (PROTONIX) VIAL IV SCH ×2 (08:38→21:18)
[2022-04-21] MEDS: NS IV 1000 ML 1,000 ML IV SCH ×2 (08:38→13:16)
[2022-04-21] MEDS: THIAMINE INJECTION 100 MG in NS (IVPB) 50 ML IV SCH (08:39)
--- NOTE | 2022-04-21 09:39 | Physical Therapy Evaluation ---
PT Evaluation-General Medical Diagnosis Admission Date Apr 16, 2022 at 23:35 Medical Diagnosis: Overdose Onset Date: Apr 16, 2022 Therapy Diagnosis Therapy Diagnosis: generalized weakness/debility Precautions Precautions/Isolations: Fall Prevention, Suicide Referral Physician: Saida Reason for Referral: Evaluation/Treatment Medical History Current History EMS secondary intentional OD per report. Reviewed History: Yes Social History Home: Single Level Prior Prior Level of Function SCALE: Activities may be completed with or without assistive devices. 0-Fpoqlylswx-tmakfhy completes the activity by him/herself with no assistance from a helper. 5-Set-up or Clean-up Assistance-helper sets up or cleans up; patient completes activity. [place] assists only prior to or following the activity. 4-Supervision or Touching Assistance-helper provides verbal cues and/or touching/steadying and/or contact guard assistance as patient completes activity. Assistance may be provided throughout the activity or intermittently. 3-Partial/Moderate Assistance-helper does LESS THAN HALF the effort. [place] lifts, holds or supports trunk or limbs, but provides less than half the effort. 2-Substantial/Maximal Assistance-helper does MORE THAN HALF the effort. [place] lifts or holds trunk or limbs and provides more than half the effort. 7-Nfemntdxh-ftimao does ALL the effort. Patient does none of the effort to complete the activity. Or, the assistance of 2 or more helpers is required for the patient to complete the activity. If activity was not attempted, code reason: 7-Patient Refused. 9-Not Applicable-not attempted and the patient did not perform the activity before the current illness, exacerbation or injury. 10-Not Attempted due to Environmental Limitations-(lack of equipment, weather restraints, etc.). 88-Not Attempted due to Medical Conditions or Safety Concerns. Bed Mobility: 6 Transfers (B,C,W/C): 6 Gait: 6 Stairs: 6 Indoor Mobility (Ambulation): Independent Stairs: Independent Prior Devices Use: None PT Evaluation-Current Subjective Patient alert with a live sitter present. Agrees to PT. Objective Patient Orientation: Person, Time Attachments: Oxygen, Rick Catheter, IV ROM/Strength ROM Lower Extremities bilateral LE WFL Strength Lower Extremities 3/5 grossly bilateral LE Integumentary/Posture Bowel Incontinence: No Bladder Incontinence: Rick Cath Posture WFL Neuromuscular (Tone, Coordination, Reflexes) diminished coordination due to weakness Sensory Vision: Functional Hearing: Functional Transfers Lying to Sitting/Side of Bed(Q: 4 Sit to Stand (QC): 3 Chair/Rme-af-Agbee Xfer(QC): 3 Gait Mode of Locomotion: Walk Anticipated Mode of Locomotion: Walk Distance: 5' Gait Assistive Device: FWW Balance Sitting Static: Normal Sitting Dynamic: Normal Standing Static: Poor Standing Dynamic: Poor Assessment/Needs 56 y.o. female, will benefit from skilled PT to address functional strength and mobility to improve current LOF to safely return to home at maximum LOF. Rehab Potential: Guarded PT Director Of Event Sales Goals Chcf Goals PT Director Of Event Sales Goals Time Frame: Apr 30, 2022 Roll Left & Right (QC): 6 Sit to Lying (QC): 6 Lying-Sitting on Side/Bed(QC): 6 Sit to Stand (QC): 6 Chair/Ahd-yt-Jstdp Xfer(QC): 6 Toilet Transfer (QC): 6 Walk 10 feet (QC): 6 Walk 50ft with 2 Turns (QC): 6 Walk 150 ft (QC): 6 PT Plan Problem List Problem List: Activity Tolerance, Functional Strength, Safety, Balance, Gait, Transfer Treatment/Plan Treatment Plan: Continue Plan of Care Treatment Plan: Bed Mobility, Education, Functional Activity Simone, Functional Strength, Gait, Safety, Therapeutic Exercise, Transfers Treatment Duration: Apr 30, 2022 Frequency: 6 times per week Estimated Hrs Per Day: .25 hour per day Time/GCodes Time In: 740 Time Out: 755 Total Billed Treatment Time: 15 Total [facility] NATHANAEL ESQUIVEL PT Apr 21, 2022 09:39
--- NOTE | 2022-04-21 10:06 | Tele-ICU Progress Note ---
Subjective Date Seen by a Provider: Apr 21, 2022 Time Seen by a Provider: 10:05 Subjective/Events-last exam Subjective/Events-last exam (Tele-ICU Physician , Progress Note ) Available chart/ vitals / labs / Images reviewed Video assessment done using teleICU camera, rest of exam as per RN Discussed with RN , EXAM PER RN Events overnight : on bipap Afebrile FiO2 - 10L I/O = pos 1300 Drips: ns 80 Pressors: , hemodynamically stable Consultants: Hospital course: (04/17) Admitted a 56 y/o intentional ingestion of 1 gallon whiskey and #20~1mg Ativan tabs in a suidce attempt. Patient very aggressive in ER. Intubated for hypoxia and airway protection. 04/20 - extubated on precedex , back to BAIPAP 18/8 , 35% 04/21 - on 10 L NC , AAO A/P Acute resp failure- intubated to protect airway 04/17 -04/20 - extubated on precedex , back to BAIPAP 18/8 , 35% 04/21 - on 10 L NC , CXR reviewed - cont for secretions , IS OD of alcohol and benzodiazepines - sitter/- phych consult - off benzo - ? NEED TAPER FOR WEANING OF CHRONIC BENZO - PER PCP or PSYCHIATRY Suicidal OD - psych eval pending , sitter Elevated TGL 18K - off p[ropofol - coming down to 200 Coffee ground on NG 04/19 - Hb stable - PPI to BID , follow ETOH abuse - thiamine , folate - change to pO when can swallow History of a brain tumor reported by patient inER -details of which is not known - CT head 04/16 Calcifications stable since 2019. No acute intracranial abnormality. Lines : R PICC 04/18 (Central Line Necessity Reviewed) Rick: + OG: + Nutrition: Analgesia: Anxiety/ delirium VTE Prophylaxis; kuldeep 40 Stress Ulcer Prophylaxis: ppi bid Plans in collaboration with bedside consultants and IM MDs. Discussed with RN to reach out if any questions or concerns A total of 33 minutes of critical care time was devoted to this patient today, required to treat and/or prevent further deterioration of critical care condition ( as above) . Sepsis Event Evaluation Height, Weight, BMI Height: '" Weight: lbs. oz. kg; 40.68 BMI Method: Focused Exam Lactate Level 04/20/22 19:40: Lactic Acid Level 0.95 Exam Exam Patient acknowledged, consented, and participated in this virtual visit which was conducted using real time audio/video Vital Signs Date Time Temp Pulse Resp B/P (MAP) Pulse Ox O2 Delivery O2 Flow Rate FiO2 04/21/22 09:00 105 22 167/89 97 High Flow N/C 6.00 04/21/22 08:00 110 18 165/91 100 High Flow N/C 6.00 04/21/22 07:25 36.2 96 100 04/21/22 07:15 100 High Flow N/C 8.00 04/21/22 07:02 96 19 183/107 100 High Flow N/C 10.00 04/21/22 07:00 96 04/21/22 06:00 93 18 189/104 100 High Flow N/C 10.00 04/21/22 05:00 93 17 159/88 100 High Flow N/C 10.00 04/21/22 04:00 36.2 100 High Flow N/C 10.00 04/21/22 04:00 100 High Flow N/C 10.00 04/21/22 04:00 93 17 152/83 100 High Flow N/C 10.00 04/21/22 03:00 83 17 158/92 99 NIV Bilevel 25.00 04/21/22 02:54 83 24 100 40.00 04/21/22 02:30 [id number] 04/21/22 02:00 80 17 139/94 100 NIV Bilevel 25.00 04/21/22 01:00 80 04/21/22 01:00 80 17 137/90 100 NIV Bilevel 25.00 04/21/22 00:48 100 NIV Bilevel 25.00 04/21/22 00:02 84 142/89 04/21/22 00:00 88 16 139/85 100 NIV Bilevel 35.00 04/20/22 23:18 94 NIV Bilevel 35 04/20/22 23:17 36.7 NIV Bilevel 35.00 04/20/22 23:00 113 20 151/86 100 NIV Bilevel 40.00 04/20/22 22:17 112 24 100 40.00 04/20/22 22:00 118 19 149/80 100 NIV Bilevel 40.00 04/20/22 21:21 36.8 NIV Bilevel 40.00 04/20/22 21:00 116 24 156/89 100 NIV Bilevel 45.00 04/20/22 20:00 94 NIV Bilevel 45 04/20/22 20:00 112 24 135/72 100 NIV Bilevel 45.00 04/20/22 19:18 36.3 04/20/22 19:00 130 04/20/22 19:00 130 20 144/92 100 NIV Bilevel 45.00 04/20/22 18:56 36.21179 04/20/22 18:35 NIV Bilevel 45.00 04/20/22 18:30 124 26 99 45.00 04/20/22 18:00 116 17 163/90 98 NIV Bilevel 50.00 04/20/22 17:03 120 24 97 80.00 04/20/22 17:00 118 24 203/102 91 NIV Bilevel 65.00 04/20/22 16:15 94 High Flow N/C 4.00 04/20/22 16:00 110 13 145/86 94 Nasal Cannula 4.00 04/20/22 15:17 36.4 04/20/22 15:00 110 14 126/77 94 Nasal Cannula 4.00 04/20/22 14:00 103 38 129/74 92 Mechanical Ventilator 30.00 04/20/22 13:48 97 19 94 30 04/20/22 13:00 87 16 123/70 95 Mechanical Ventilator 30.00 04/20/22 12:46 82 04/20/22 12:35 93 Mechanical Ventilator 30 04/20/22 12:10 81 93/56 04/20/22 12:00 81 16 93/56 90 Mechanical Ventilator 30.00 04/20/22 11:00 78 16 95/56 92 Mechanical Ventilator 30.00 04/20/22 10:57 79 16 92 30 I & O 04/21/22 07:00 Intake Total 801 ml Output Total 2550 ml Balance -1749 ml Height & Weight Height: '" Weight: lbs. oz. kg; 40.68 BMI Method: General Appearance: Chronically ill, Other (Sedated and intubated) HEENT: PERRL/EOMI, TMs Normal, Normal ENT Inspection, Pharynx Normal, Moist Mucous Membranes Neck: Full Range of Motion, Normal Inspection, Non Tender Respiratory: Lungs Clear, Normal Breath Sounds Cardiovascular: Regular Rate, Rhythm Capillary Refill: Less Than 3 Seconds Peripheral Pulses: 2+ Dorsalis Pedis (R), 2+ Left Dors-Pedis (L), 2+ Radial Pulses (R), 2+ Radial Pulses (L) Gastrointestinal: non tender, soft Extremity: Normal Capillary Refill, Normal Inspection, Normal Range of Motion, Non Tender, No Calf Tenderness, No Pedal Edema Neurologic/Psychiatric: Alert, Oriented x3, No Motor/Sensory Deficits, Normal Mood/Affect Skin: Normal Color, Warm/Dry Lymphatic: No Adenopathy Results Lab Laboratory Tests 04/20/22 03:45 04/20/22 19:40 04/21/22 03:30 Assessment/Plan Assessment/Plan 1 ASUNCION GRIMM MD Apr 21, 2022 10:06
[2022-04-21] MEDS ORDERED: lisINopril 10 MG (PRINIVIL) TABLET PO NR (12:45)
--- NOTE | 2022-04-21 13:20 | ST Dysphagia Evaluation ---
Speech Evaluation-General Medical Diagnosis Overdose Onset Date: Apr 16, 2022 Therapy Diagnosis Therapy Diagnosis: Increased Aspiration Risk Precautions Precautions: Fall, Aspiration Precautions/Isolations: Aspiration, Fall Prevention, Standard Precautions Referral Referring Physician: Dr. Costa Reason for Referral: Evaluation/Treatment Medical History Current History The patient is a 56-year-old female who presented to the ER after overdosing on Ativan and ultimately required intubation. The patient remained intubated from 04/17/22 to 04/20/22. Reviewed History: Yes Speech PLF/Current-Dysphagia Prior Level of Function Prior to hospitalization, the patient consumed a regular diet with thin liquids. Thin liquids via straw were present at bedside upon entrance to the room. The patient denied difficulties with the thin liquids or the presence of s/s of suspected aspiration. Subjective The patient was seated upright in bed, awake and alert upon entrance to the room by the clinician. The patient greeted the clinician appropriately and was agreeable to participation in the clinical bedside swallowing assessment. Cognitive Status Patient Orientation: Person Oral Motor Skills Dentition: Natural Ability to Follow Directions: Good Oral Expression Ability: Mild Impairment Voice Voice Phonatory-Based Quality: Breathy (Dysphonia.), Weak Voice Loudness: Moderately Soft/Quiet Face Facial Symmetry: Symmetrical Oral-Facial Assessment Oral-Facial Dentition: Normal Labial Seal Description: Normal Smile: Normal Lingual Protrusion: Normal Lingual ROM: Normal Lingual Strength: Normal Volitional Dry Swallow: Yes Voluntary Cough: Yes Can Clear Throat Volitionally: Yes Productive Cough: Yes Productive Throat Clear: Yes Dysphagia Evaluation Consistencies Presented: Thin Liquid (Via Teaspoon and Straw.), Pureed The patient displays appropriate ability to draw the bolus from the teaspoon and straw. No anterior spillage was present. No oral holding behaviors were present. Laryngeal elevation was present to palpation. No s/s of suspected aspiration were demonstrated with teaspoons or straw drinks of thin liquids or teaspoons of puree. Following the fourth puree bolus, the patient displayed fatigue and increased respiratory effort. The patient stated, "I just need to slow down and take my time." To reduce fatigue, the clinician returned to thin liquids. Once a return to thin liquids occurred, the patient's respiratory effort decreased and she was able to complete approximately six ounces of water via straw. Dietary Recommendations: Clear L. Liquid Recommendations: Thin Dysphagia Evaluation Summary The patient displayed an elevated risk of aspiration with P.O. consistencies due to her overall level of fatigue and increased respiratory effort with extended P.O. trials. To reduce fatigue, clear liquid consistencies should be initiated in attempts at energy conservation. No s/s of suspected aspiration were demonstrated with thin liquids or puree. The patient's vocal quality remained aphonic following the swallow, however, not wet. Speech Short Term Goals Short Term Goals Short Term Goals 1. The patient, staff, and family will follow safe swallowing strategies with 9 0% accuracy, independently. Time Frame-STG: Three Days. Speech Mcc Goals Mcc Goals 1. The patient will consumed the least restrictive diet without s/s of suspected aspiration. Time Frame: One Week. Speech-Plan Treatment Plan Speech Therapy Treatment Plan: Continue Plan of Care Frequency: 2 times per week Estimated Hrs Per Day: .25 hour per day Rehab Potential: Guarded Safety Risks/Education Teaching Recipient: Patient Teaching Methods: Discussion Response to Teaching: Verbalize Understanding Education Topics Provided: Results, Recommendations, Plan of Care, S/s of Suspected Aspiration Time Speech Therapy Time In: 11:55 Speech Therapy Time Out: 12:11 Total Billed Time: 16 Billed Treatment Time 1, LONG LAWRENCE ELIZABETH Apr 21, 2022 13:20
--- NOTE | 2022-04-21 13:40 | Occupational Therapy Eval ---
OT Evaluation-General/PLF Medical Diagnosis Admission Date Apr 16, 2022 at 23:35 Medical Diagnosis: Overdose Onset Date: Apr 16, 2022 Therapy Diagnosis Therapy Diagnosis: weakness Precautions Precautions/Isolations: Aspiration, Fall Prevention, Standard Precautions Referral Physician: Saida Chung Reason: Evaluation/Treatment Medical History Additional Medical History HTN, kidney stones, anxiety/depression, mood disorder, psoriasis Current History ED due to intentional overdose per report. Social History Home: Single Level ADL-Prior Level of Function SCALE: Activities may be completed with or without assistive devices. 0-Opmlrxshnr-ezlnscf completes the activity by him/herself with no assistance from a helper. 5-Set-up or Clean-up Assistance-helper sets up or cleans up; patient completes activity. Ewing assists only prior to or following the activity. 4-Supervision or Touching Assistance-helper provides verbal cues and/or to uching/steadying and/or contact guard assistance as patient completes activity. Assistance may be provided throughout the activity or intermittently. 3-Partial/Moderate Assistance-helper does LESS THAN HALF the effort. Ewing lifts, holds or supports trunk or limbs, but provides less than half the effort. 2-Substantial/Maximal Assistance-helper does MORE THAN HALF the effort. Ewing lifts or holds trunk or limbs and provides more than half the effort. 4-Abicaxvqd-twcdqx does ALL the effort. Patient does none of the effort to complete the activity. Or, the assistance of 2 or more helpers is required for the patient to complete the activity. If activity was not attempted, code reason: 7-Patient Refused. 9-Not Applicable-not attempted and the patient did not perform the activity before the current illness, exacerbation or injury. 10-Not Attempted due to Environmental Limitations-(lack of equipment, weather restraints, etc.). 88-Not Attempted due to Medical Conditions or Safety Concerns. ADL PLOF Comments Pt reports IND with ADLS and functional mobility at PLOF. Self Care: Independent Functional Cognition: Independent OT Current Status Subjective Pt just transferred to Med/Surg floor, agreeable to OT Tx. Pt required increased processing time, slow to respond to OT questions. Mental Status/Objective Patient Orientation: Person, Situation Attachments: Rick Catheter, IV, Oxygen Current Upper Extremity ROM WFL during meal. Upper Extremity Coordination slightly decreased, increased time required with fine motor tasks. Upper Extremity Strength grossly 3/5 ADL-Treatment Eating (QC): 6 (IND with liquid diet, increased time required.) Shower/Bathe Self (QC): 88 On/Off Footwear (QC): 1 (total assist required at this time) Other Treatments Pt in bed, agreeable to OT Tx. Family member came in room and handed pt her cell phone. OT asked pt questions about PLOF, pt slow to respond to questions and limited with responses. Pt kept phone in her hand and looked through messages while OT talked with pt. Pt's lunch arrived, and pt put her phone down. OT educated pt on purpose and benefit of OT, she verbalized understanding. Pt able to open straw, remove lid from broth, and open sprite container, increased time. OT educated pt on UE exercises in order to increase strength and activity tolerance, including shoulder flexion and front punch. Pt completed x5 reps BUE for each exercise. OT noted pt's IV covering was pulling up, OT had pt stop exercises and nurse was notified. Post tx, pt in bed, call light in reach and all needs met. Live sitter and family member present. Education OT Patient Education: Correct positioning, Energy conservation, Exercise program, Modified ADL techniques, Progress toward Goal/Update tx plan, Purpose of tx/functional activities Teaching Recipient: Patient Teaching Methods: Discussion Response to Teaching: Verbalize Understanding, Reinforcement Needed OT Mcfp Goals Assembler Seat Goals Time Frame: May 06, 2022 Oral Hygiene (QC): 5 Toileting Hygiene (QC): 4 Shower/Bathe Self (QC): 4 Upper Body Dressing (QC): 5 Lower Body Dressing (QC): 4 On/Off Footwear (QC): 4 Additional Goals: 1-Demonstrate ADL Tasks, 2-Verbalize Understanding, 3-Improve Strength/Simone 1=Demonstrate adherence to instructed precautions during ADL tasks. 2=Patient will verbalize/demonstrate understanding of assistive devices/modifications for ADL. 3=Patient will improve strength/tolerance for activity to enable patient to pe rform ADL's. OT Education/Plan Problem List/Assessment Assessment: Decreased Activ Tolerance, Decreased UE Strength, Impaired Funct Balance, Impaired I ADL's, Impaired Self-Care Skills Discharge Recommendations Plan/Recommendations: Continue POC Treatment Plan/Plan of Care Patient would benefit from OT for education, treatment and training to promote independence in ADL's, mobility, safety and/or upper extremity function for ADL's. Plan of Care: ADL Retraining, Functional Mobility, UE Funct Exercise/Act Treatment Duration: May 06, 2022 Frequency: 3 times per week (3-5 times per week) Rehab Potential: Guarded Time/GCodes Start Time: 13:15 Stop Time: 13:28 Total Time Billed (hr/min): 13 Billed Treatment Time 1, CYNTHIA MARTI OT Apr 21, 2022 13:40
--- NOTE | 2022-04-21 16:24 | Progress Note ---
Subjective Subjective/Events-last exam Seen at 0900. Extubated yesterday, currently on 5 lpm supplemental oxygen, alert. She is able to state her name, but says we are in a spaceship when asked location. She does know it is 2021, she says she doesn't remember what happened prior to waking up here, last she thing she remembers is being home. She states she is glad to be alive and realizes "it was stupid". Focused Exam Lactate Level 04/20/22 19:40: Lactic Acid Level 0.95 Objective Exam Last Set of Vital Signs Vital Signs Date Time Temp Pulse Resp B/P (MAP) Pulse Ox O2 Delivery O2 Flow Rate FiO2 04/21/22 15:15 36.4 101 20 144/85 97 High Flow N/C 4.00 04/20/22 23:18 35 Capillary Refill : Less Than 3 Seconds I&O Intake and Output 04/21/22 00:00 Intake Total 2101 ml Output Total 2175 ml Balance -74 ml Intake Oral 0 ml IV Total 2101 ml Output Urine Total 1875 ml Oral Regurgitation 300 ml General: Alert, No Acute Distress Lungs: Normal Air Movement, Other (faint ronchi throughout) Abdomen: Normal Bowel Sounds, No Tenderness, Other (mild distension, improved from yesterday) Neuro: Other (quiet vocal quality and oriented only to self and year) Psych/Mental Status: Mood NL Results/Procedures Lab Laboratory Tests 04/20/22 17:21: Glucometer 126H 04/20/22 17:45: Blood Gas Puncture Site R WRIST, Blood Gas Patient Temperature 38.0, Arterial Blood pH 7.24*L, Arterial Blood Partial Pressure CO2 39, Arterial Blood Partial Pressure O2 83, Arterial Blood HCO3 16*L, Arterial Blood Total CO2 17.0L, Arteri al Blood Oxygen Saturation 95, Arterial Blood Base Excess -10.0L, Rubén Test NA, Blood Gas Ventilator Setting NO, Blood Gas Inspired Oxygen 50% 04/20/22 19:40: Sodium Level 140, Potassium Level 3.6, Chloride Level 113H, Carbon Dioxide Level 15L, Anion Gap 12, Blood Urea Nitrogen 5L, Creatinine 0.66, Estimat Glomerular Filtration Rate 104, BUN/Creatinine Ratio 8, Glucose Level 127H, Lactic Acid Level 0.95, Calcium Level 7.4L 04/20/22 20:10: Blood Gas Puncture Site R RIB, Blood Gas Patient Temperature 97.3, Arterial Blood pH 7.29*L, Arterial Blood Partial Pressure CO2 36, Arterial Blood Partial Pressure O2 88, Arterial Blood HCO3 17*L, Arterial Blood Total CO2 18.2L, Arterial Blood Oxygen Saturation 98, Arterial Blood Base Excess -8.4L, Rubén Test NA, Blood Gas Ventilator Setting NO, Blood Gas Inspired Oxygen 45% 04/20/22 23:52: Glucometer 117H 04/21/22 03:30: White Blood Count 15.3H, Red Blood Count 3.62L, Hemoglobin 10.5L, Hematocrit 33L , Mean Corpuscular Volume 90, Mean Corpuscular Hemoglobin 29, Mean Corpuscular Hemoglobin Concent 32, Red Cell Distribution Width 14.0, Platelet Count 215, Mean Platelet Volume 9.7, Immature Granulocyte % (Auto) 1, Neutrophils (%) (Auto) 85H, Lymphocytes (%) (Auto) 6L, Monocytes (%) (Auto) 7, Eosinophils (%) (Auto) 0, Basophils (%) (Auto) 0, Neutrophils # (Auto) 13.0H, Lymphocytes # (Auto) 1.0, Monocytes # (Auto) 1.1H, Eosinophils # (Auto) 0.1, Basophils # (Auto) 0.1, Immature Granulocyte # (Auto) 0.1, Sodium Level 140, Potassium Level 3.7, Chloride Level 112H, Carbon Dioxide Level 18L, Anion Gap 10, Blood Urea Nitrogen 5L, Creatinine 0.65, Estimat Glomerular Filtration Rate 105, BUN/Creatinine Ratio 8, Glucose Level 118H, Calcium Level 8.3L, Corrected Calcium 9.3, Phosphorus Level 1.7L, Magnesium Level 1.8, Total Bilirubin 1.3H, Aspartate Amino Transf (AST/SGOT) 13, Alanine Aminotransferase (ALT/SGPT) 15, Alkaline Phosphatase 82, Total Protein 5.6L, Albumin 2.8L, Triglycerides Level 205H 04/21/22 03:35: Blood Gas Puncture Site LRAD, Blood Gas Patient Temperature 36.4, Arterial Blood pH 7.35L, Arterial Blood Partial Pressure CO2 36, Arterial Blood Partial Pressure O2 53L, Arterial Blood HCO3 19L, Arterial Blood Total CO2 20.5L, Arterial Blood Oxygen Saturation 89L, Arterial Blood Base Excess -5.4L, Rubén Test YES-POS, Blood Gas Ventilator Setting NO, Blood Gas Inspired Oxygen 45% 04/21/22 11:46: Glucometer 110 Microbiology 04/20/22 Gram Stain - Final, Resulted 04/20/22 Sputum Culture - Preliminary, Resulted Usual upper respiratory yue Strep agalactiae Group B Assessment/Plan Assessment/Plan (1) Respiratory failure with hypoxia Status: Acute Assessment & Plan: Secondary to EtOH and benzodiazepine overdose 04/21 extubated yesterday and progressively weaning supplemental oxygen Qualifiers: Qualified Codes: J96.01 - Acute respiratory failure with hypoxia (2) Benzodiazepine overdose Status: Acute Assessment & Plan: Requiring intubation for somnolence and hypoxia/hypoventilation. Appreciate Eula recommendations. 04/21 extubated yesterday. [facility] to screen for safety/disposition for discharge. Qualifiers: Qualified Codes: T42.4X2A - Poisoning by benzodiazepines, intentional self- harm, initial encounter (3) Suicide attempt Status: Acute Assessment & Plan: Mental health eval when medically stable (4) Pupil diameter unequal Status: Acute Assessment & Plan: Per ER notes present on admission, CT head okay (5) Leukocytosis Status: Acute Assessment & Plan: No clear sign of infection, suspect stress reaction, sputum culture per Eula on 04/20 pending (6) Subependymoma Status: Chronic Assessment & Plan: Per history, uncertain chronicity or significance. (7) Alcohol abuse Status: Acute (8) DVT prophylaxis Status: Acute Assessment & Plan: Enoxaparin MIKE OROZCO MD Apr 21, 2022 16:24
[2022-04-21] MEDS: ENOXAPARIN 40 MG/0.4 ML (LOVENOX) SYR SC SCH (21:19)
[2022-04-21] MEDS ORDERED: traZODone 50 MG (DESYREL) TAB ONE (23:07)
[2022-04-21] MEDS: traZODone 50 MG (DESYREL) TAB PO PRN (23:08)
[2022-04-22] MEDS: NS IV 1000 ML 1,000 ML IV SCH ×2 (01:22→12:23)
[2022-04-22] MEDS: HALOPERIDOL 5 MG/ML (HALDOL) VIAL IJ PRN (01:22)
[2022-04-22] MEDS: RT-ALBUTEROL/IPRATROPIUM 3 ML (DUONEB) VIAL INH SCH ×4 (01:37→19:35)
[2022-04-22] MEDS: fentaNYL INJ 100 MCG/2 ML AMP IVP PRN (03:56)
[2022-04-22 05:27] LABS: BASOPHILS % (AUTO) 0 % (0-10); EOSINOPHILS # (AUTO) 0.1 10^3/uL (0.0-0.3); EOSINOPHILS % (AUTO) 0 % (0-10); HEMATOCRIT 32 % (35-52); HEMOGLOBIN 10.6 g/dL (11.5-16.0); LYMPHOCYTES # (AUTO) 0.9 10^3/uL (1.0-4.0); LYMPHOCYTES % (AUTO) 6 % (12-44); MEAN CORPUSCULAR HEMOGLOBIN 29 pg (25-34); MEAN CORPUSCULAR HGB CONC 33 g/dL (32-36); MEAN CORPUSCULAR VOLUME 89 fL (80-99); MEAN PLATELET VOLUME 9.7 fL (9.0-12.2); MONOCYTES # (AUTO) 1.2 10^3/uL (0.0-1.0); MONOCYTES % (AUTO) 7 % (0-12); NEUTROPHILS # (AUTO) 14.5 10^3/uL (1.8-7.8); NEUTROPHILS % (AUTO) 86 % (42-75); PLATELET COUNT 282 10^3/uL (130-400); WHITE BLOOD COUNT 16.9 10^3/uL (4.3-11.0)
[2022-04-22 05:35] LABS: ALBUMIN 2.9 GM/DL (3.2-4.5)
[2022-04-22 05:36] LABS: POTASSIUM 3.2 MMOL/L (3.6-5.0)
[2022-04-22 05:37] LABS: CALCIUM 8.3 MG/DL (8.5-10.1)
[2022-04-22 05:38] LABS: TOTAL PROTEIN 5.7 GM/DL (6.4-8.2)
[2022-04-22 05:40] LABS: BILIRUBIN,TOTAL 1.2 MG/DL (0.1-1.0)
[2022-04-22 05:41] LABS: CREATININE SERUM 0.6 MG/DL (0.60-1.30)
[2022-04-22] MEDS ORDERED: KCL 20 MEQ TAB (K-DUR) PO ONE (06:00)
[2022-04-22] MEDS: MULTIVIT W/MINERALS TAB (THERAGRAN M) NG SCH (06:15)
[2022-04-22] MEDS ORDERED: PENICILLIN GK IV SCH (07:00)
[2022-04-22] MEDS ORDERED: NS IV SCH ×2 (07:00→07:15)
[2022-04-22] MEDS ORDERED: PENICILLIN POTASSIUM IV SCH (07:15)
[2022-04-22 07:50] VITALS: BP 171/82
[2022-04-22] MEDS: NS IV SCH ×5 (08:17→22:19)
[2022-04-22] MEDS: PENICILLIN POTASSIUM IV SCH ×5 (08:17→22:19)
[2022-04-22] MEDS: PANTOPRAZOLE 40 MG (PROTONIX) VIAL IV SCH ×2 (08:17→19:50)
[2022-04-22] MEDS: lisINopril 10 MG (PRINIVIL) TABLET PO SCH (08:17)
[2022-04-22] MEDS: THIAMINE INJECTION 100 MG in NS (IVPB) 50 ML IV SCH (09:28)
[2022-04-22] MEDS: POTASSIUM CL 10MEQ/50ML IVPB 50 ML IV SCH ×3 (10:24→12:21)
--- NOTE | 2022-04-22 10:25 | Physical Therapy Daily Note ---
PT Daily Note-Current Subjective Patient very agreeable to participate with PT. Mental Status Patient Orientation: Normal For Age Attachments: Oxygen, Rick Catheter, IV Transfers SCALE: Activities may be completed with or without assistive devices. 9-Ceylvomywb-htpjndu completes the activity by him/herself with no assistance from a helper. 5-Set-up or Clean-up Assistance-helper sets up or cleans up; patient completes activity. Plato assists only prior to or following the activity. 4-Supervision or Touching Assistance-helper provides verbal cues and/or touching/steadying and/or contact guard assistance as patient completes activit y. Assistance may be provided throughout the activity or intermittently. 3-Partial/Moderate Assistance-helper does LESS THAN HALF the effort. Plato lifts, holds or supports trunk or limbs, but provides less than half the effort. 2-Substantial/Maximal Assistance-helper does MORE THAN HALF the effort. Plato lifts or holds trunk or limbs and provides more than half the effort. 7-Bpbfiriej-lgcfzn does ALL the effort. Patient does none of the effort to complete the activity. Or, the assistance of 2 or more helpers is required for the patient to complete the activity. If activity was not attempted, code reason: 7-Patient Refused. 9-Not Applicable-not attempted and the patient did not perform the activity before the current illness, exacerbation or injury. 10-Not Attempted due to Environmental Limitations-(lack of equipment, weather restraints, etc.). 88-Not Attempted due to Medical Conditions or Safety Concerns. Lying to Sitting/Side of Bed(Q: 6 Sit to Stand (QC): 3 Chair/Pdi-iq-Uynbl Xfer(QC): 3 Gait Training Distance: 10' Walk 10 feet (QC): 3 Gait Assistive Device: FWW extended UE's with FWW use/shuffle gait sequence Assessment Patient tolerates minimal activity and is up in recliner with chair alarm activated and telesitter in room. PT to increase activity as tolerated by patient. PT Director Power Goals Intermediate Goals PT Director Power Goals Time Frame: Apr 30, 2022 Roll Left & Right (QC): 6 Sit to Lying (QC): 6 Lying-Sitting on Side/Bed(QC): 6 Sit to Stand (QC): 6 Chair/Vmd-eq-Ddiis Xfer(QC): 6 Toilet Transfer (QC): 6 Walk 10 feet (QC): 6 Walk 50ft with 2 Turns (QC): 6 Walk 150 ft (QC): 6 PT Plan Treatment/Plan Treatment Plan: Continue Plan of Care Treatment Plan: Bed Mobility, Education, Functional Activity Simone, Functional Strength, Gait, Safety, Therapeutic Exercise, Transfers Treatment Duration: Apr 30, 2022 Frequency: 6 times per week Estimated Hrs Per Day: .25 hour per day Time/GCodes Time In: 928 Time Out: 941 Total Billed Treatment Time: 13 Total Billed Treatment 1 visit FA 13 min NATHANAEL ESQUIVEL PT Apr 22, 2022 10:25
--- NOTE | 2022-04-22 10:48 | Speech Therapy Daily Note ---
Speech Daily Progress Note Subjective Date Seen by Provider: Apr 22, 2022 Time Seen by Provider: 08:37 The patient was seated upright in bed, at a slight recliner, awake and alert upon entrance to her room by the clinician. The patient greeted the clinician appropriately and was agreeable to participation in the dysphagia treatment session. The patient appeared somewhat anxious, with wide eyes and an uncontrolled breathing pattern. Prior to P.O. trials, the clinician demonstrated diaphragmatic, calming breathing to the patient. The patient was able to complete the breathing exercise with good accuracy and continuous clinician prompting. The patient appeared to calm prior to P.O. The patient remains on 4L nasal cannula. The patient's voice remains mostly aphonic. Objective The patient was provided thin liquid via teaspoon, thin liquid via straw, nectar-thick liquid via teaspoon, nectar-thick liquid via straw, and puree. To note, the patient displayed throat clearing and coughing behaviors prior to P.O. intake. Per patient, "I've been up all night coughing." The patient did not display s/s of suspected aspiration with teaspoons of thin liquid, teaspoons of nectar-thick liquid, straw drinks of nectar-thick liquid, or puree. The patient did display a rigorous cough following one of eight straw drinks of thin liquid. Recommendations: - Dysphagia one (pureed) diet consistency with nectar-thick liquids (mildly thick), as tolerated. - Fully upright and alert for PO intake. - Cease PO intake during periods of respiratory fatigue. - Small bites and sips, only. - Crush medication and place in puree for administration. - Monitor for s/s of suspected aspiration with PO intake. If demonstrated, contact speech pathology. The patient's present s/s of suspected aspiration may be caused by poor vocal cord closure as evident through the patient's aphonic vocal quality and secondary to recent intubation. With the patient's current level of fatigue, a pureed diet consistency remains appropriate for energy conservation. The recommendations, results, and s/s of suspected aspiration were discussed with the patient, who verbalized comprehension. The RN was provided the recommendations following the study. Assessment Assessment Current Status: Fair Progress Treatment Plan Continue Plan of Care Speech Short Term Goals Short Term Goals Short Term Goals 1. The patient, staff, and family will follow safe swallowing strategies with 90% accuracy, independently. Time Frame-STG: Three Days. Speech Retirement Goals Retirement Goals 1. The patient will consumed the least restrictive diet without s/s of suspected aspiration. Time Frame: One Week. Speech-Plan Treatment Plan Speech Therapy Treatment Plan: Continue Plan of Care Treatment Duration: Apr 28, 2022 Frequency: 2 times per week Estimated Hrs Per Day: .25 hour per day Rehab Potential: Guarded Safety Risks/Education Teaching Recipient: Patient Teaching Methods: Discussion Response to Teaching: Reinforcement Needed Education Topics Provided: Results, Recommendations, Plan of Care Time Speech Therapy Time In: 08:37 Speech Therapy Time Out: 09:00 Total Billed Time: 23 Billed Treatment Time 1, JACOBY Pitt Apr 22, 2022 10:48
[2022-04-22 11:12] VITALS: BP_SYST 180; BP_SYST 182; BP_DIAS 82; BP_DIAS 83
--- NOTE | 2022-04-22 12:56 | Progress Note ---
Subjective Subjective/Events-last exam Pt is visibly working hard to breathe, but says she feels okay in general. She just walked to the bathroom. She has been having some episodes of high anxiety that add to her breathing difficulty. Focused Exam Lactate Level 04/20/22 19:40: Lactic Acid Level 0.95 Objective Exam Last Set of Vital Signs Vital Signs Date Time Temp Pulse Resp B/P (MAP) Pulse Ox O2 Delivery O2 Flow Rate FiO2 04/22/22 11:12 36.1 107 24 180/82 (114) 97 High Flow N/C 5.00 04/20/22 23:18 35 Capillary Refill : Less Than 3 Seconds I&O Intake and Output 04/22/22 00:00 Intake Total 1551 ml Output Total 3150 ml Balance -1599 ml Intake Oral 250 ml IV Total 1301 ml Output Urine Total 3150 ml # Bowel Movements 1 General: Alert, Mild Distress Lungs: Clear to Auscultation, Normal Air Movement Heart: Regular Rate, No Murmurs Extremities: No Edema Psych/Mental Status: Mental Status NL, Mood NL Results/Procedures Lab Laboratory Tests 04/22/22 05:22: White Blood Count 16.9H, Red Blood Count 3.64L, Hemoglobin 10.6L, Hematocrit 32L , Mean Corpuscular Volume 89, Mean Corpuscular Hemoglobin 29, Mean Corpuscular Hemoglobin Concent 33, Red Cell Distribution Width 13.9, Platelet Count 282, Mean Platelet Volume 9.7, Immature Granulocyte % (Auto) 1, Neutrophils (%) (Auto) 86H, Lymphocytes (%) (Auto) 6L, Monocytes (%) (Auto) 7, Eosinophils (%) (Auto) 0, Basophils (%) (Auto) 0, Neutrophils # (Auto) 14.5H, Lymphocytes # (Au to) 0.9L, Monocytes # (Auto) 1.2H, Eosinophils # (Auto) 0.1, Basophils # (Auto) 0.0, Immature Granulocyte # (Auto) 0.2H, Sodium Level 143, Potassium Level 3.2L, Chloride Level 111H, Carbon Dioxide Level 18L, Anion Gap 14, Blood Urea Nitrogen 5L, Creatinine 0.60, Estimat Glomerular Filtration Rate 107, BUN/Creatinine Ratio 8, Glucose Level 101, Calcium Level 8.3L, Corrected Calcium 9.2, Total Bilirubin 1.2H, Aspartate Amino Transf (AST/SGOT) 19, Alanine Aminotransferase (ALT/SGPT) 20, Alkaline Phosphatase 83, Total Protein 5.7L, Albumin 2.9L Microbiology 04/20/22 Gram Stain - Final, Complete 04/20/22 Sputum Culture - Final, Complete Usual upper respiratory yue Strep agalactiae Group B Assessment/Plan Assessment/Plan (1) Respiratory failure with hypoxia Status: Acute Assessment & Plan: Secondary to EtOH and benzodiazepine overdose 04/21 extubated yesterday and progressively weaning supplemental oxygen Qualifiers: Qualified Codes: J96.01 - Acute respiratory failure with hypoxia (2) Benzodiazepine overdose Status: Acute Assessment & Plan: Requiring intubation for somnolence and hypoxia/h ypoventilation. Appreciate Eula recommendations. 04/21 extubated yesterday. [facility] screened and reported okay for home d/c when med ically stable. Qualifiers: Qualified Codes: T42.4X2A - Poisoning by benzodiazepines, intentional self-h arm, initial encounter (3) Suicide attempt Status: Acute Assessment & Plan: Mental health eval when medically stable (4) Pupil diameter unequal Status: Acute Assessment & Plan: Per ER notes present on admission, CT head okay (5) Leukocytosis Status: Acute Assessment & Plan: No clear sign of infection, suspect stress reaction, sputum culture per Eula on 04/20 pending 04/22- sputum positive for GBS, see pneumonia dx. (6) Subependymoma Status: Chronic Assessment & Plan: Per history, uncertain chronicity or significance. (7) Alcohol abuse Status: Acute (8) Pneumonia Status: Acute Assessment & Plan: Penicillin started 7/8 am. Qualifiers: Qualified Codes: J15.3 - Pneumonia due to Streptococcus, group b (9) Hypertension Status: Chronic Assessment & Plan: Resumed home lisinopril, BP not controlled, will add HCTZ. Qualifiers: Qualified Codes: I10 - Essential (primary) hypertension (10) Anxiety Status: Chronic Assessment & Plan: Will try hydroxyzine for acute anxiety. (11) DVT prophylaxis Status: Acute Assessment & Plan: Enoxaparin MIKE OROZCO MD Apr 22, 2022 12:56
--- NOTE | 2022-04-22 14:48 | Occupational Ther Daily Note ---
OT Current Status-Daily Note Subjective Pt laying in bed upon OT arrival, agreeable to tx. Pt required increased time to respond during conversation and speech was difficult to understand at times, but pt was pleasant and interactive during tx. Mental Status/Objective Patient Orientation: Person Attachments: IV, Oxygen ADL-Treatment Therapy Code Descriptions/Definitions Functional [place] Measure: 0=Not Assessed/NA 4=Minimal Assistance 1=Total Assistance 5=Supervision or Setup 2=Maximal Assistance 6=Modified [place] 3=Moderate Assistance 7=Complete IndependenceSCALE: Activities may be completed with or without assistive devices. 5-Ynjvjjjzcv-bjgrwno completes the activity by him/herself with no assistance from a helper. 5-Set-up or Clean-up Assistance-helper sets up or cleans up; patient completes activity. [place] assists only prior to or following the activity. 4-Supervision or Touching Assistance-helper provides verbal cues and/or touching/steadying and/or contact guard assistance as patient completes activity. Assistance may be provided throughout the activity or intermittently. 3-Partial/Moderate Assistance-helper does LESS THAN HALF the effort. [place] lifts, holds or supports trunk or limbs, but provides less than half the effort. 2-Substantial/Maximal Assistance-helper does MORE THAN HALF the effort. [place] lifts or holds trunk or limbs and provides more than half the effort. 3-Xmptongjm-biimih does ALL the effort. Patient does none of the effort to complete the activity. Or, the assistance of 2 or more helpers is required for the patient to complete the activity. If activity was not attempted, code reason: 7-Patient Refused. 9-Not Applicable-not attempted and the patient did not perform the activity before the current illness, exacerbation or injury. 10-Not Attempted due to Environmental Limitations-(lack of equipment, weather restraints, etc.). 88-Not Attempted due to Medical Conditions or Safety Concerns. Oral Hygiene (QC): 3 (Min A to wipe mouth and hold spit basin. Pt required v/c's to rinse toothpaste out of mouth) Other Treatment Pt remained in bed throughout tx. HOB was raised and she completed oral care and washed her face with warm washcloth. Pt then completed 10 reps of shoulder flexion and fist pumps, in order to increase BUE strength and activity tolerance. She required increased time to complete self-care tasks and UE exercises, and there were noticeable deficits in fine motor coordination throughout tasks as well. Post tx, pt left in bed with call light in reach and all needs met. Education OT Patient Education: Energy conservation, Exercise program, Modified ADL techn iques, Progress toward Goal/Update tx plan, Purpose of tx/functional activities, Rehab process Teaching Recipient: Patient Teaching Methods: Discussion Response to Teaching: Verbalize Understanding OT Dental [employer]alg[employer] Processor Goals Dental Amalgam Processor Goals Time Frame: May 06, 2022 Oral Hygiene (QC): 5 Toileting Hygiene (QC): 4 Shower/Bathe Self (QC): 4 Upper Body Dressing (QC): 5 Lower Body Dressing (QC): 4 On/Off Footwear (QC): 4 Additional Goals: 1-Demonstrate ADL Tasks, 2-Verbalize Understanding, 3-ImproveStrength/Simone 1=Demonstrate adherence to instructed precautions during ADL tasks. 2=Patient will verbalize/demonstrate understanding of assistive devices/modifications for ADL. 3=Patient will improve strength/tolerance for activity to enable patient to perform ADL's. OT Education/Plan Problem List/Assessment Assessment: Decreased Activ Tolerance, Decreased UE Strength, Impaired Coordination, Impaired Funct Balance, Impaired I ADL's, Impaired Self-Care Skills Discharge Recommendations Plan/Recommendations: Continue POC Treatment Plan/Plan of Care Patient would benefit from OT for education, treatment and training to promote independence in ADL's, mobility, safety and/or upper extremity function for ADL's. Plan of Care: ADL Retraining, Functional Mobility, UE Funct Exercise/Act Treatment Duration: May 06, 2022 Frequency: 3 times per week (3-5 times per week) Rehab Potential: Guarded Time/GCodes Start Time: 14:12 Stop Time: 14:26 Total Time Billed (hr/min): 14 Billed Treatment Time 1, ADL CYNTHIA MORRIS OT Apr 22, 2022 14:48
[2022-04-22] MEDS: hydrOXYzine (VISTARIL/ATARAX) 25 MG capsule/tablet PO PRN ×2 (14:59→19:50)
[2022-04-22 16:39] VITALS: BP 194/87
[2022-04-22] MEDS: doxAzosin 2 MG (CARDURA) TAB PO SCH (18:00)
[2022-04-22 19:10] VITALS: BP 192/86
[2022-04-22 19:12] VITALS: BP 210/90
[2022-04-22] MEDS: traZODone 50 MG (DESYREL) TAB PO PRN (19:50)
[2022-04-22] MEDS: ENOXAPARIN 40 MG/0.4 ML (LOVENOX) SYR SC SCH (19:50)
[2022-04-22] MEDS ORDERED: NON-FORMULARY MEDICATION 1 EA EA (Lamotrigine (Lamictal) 200 MG) PO SCH (21:00)
[2022-04-23 00:05] VITALS: BP 148/76
[2022-04-23] MEDS: RT-ALBUTEROL/IPRATROPIUM 3 ML (DUONEB) VIAL INH SCH ×4 (02:16→21:52)
[2022-04-23] MEDS: PENICILLIN POTASSIUM IV SCH ×6 (02:34→23:21)
[2022-04-23] MEDS: NS IV SCH ×6 (02:34→23:21)
[2022-04-23 03:45] VITALS: BP 161/85
[2022-04-23] MEDS ORDERED: THIAMINE 100 MG (VITAMIN B-1) TAB ONE (03:51)
[2022-04-23] MEDS: THIAMINE 100 MG (VITAMIN B-1) TAB PO SCH (03:52)
[2022-04-23] MEDS: MULTIVIT W/MINERALS TAB (THERAGRAN M) NG SCH (03:52)
[2022-04-23 04:06] LABS: BASOPHILS # (AUTO) 0.1 10^3/uL (0.0-0.1); BASOPHILS % (AUTO) 1 % (0-10); EOSINOPHILS # (AUTO) 0.1 10^3/uL (0.0-0.3); EOSINOPHILS % (AUTO) 1 % (0-10); HEMATOCRIT 30 % (35-52); HEMOGLOBIN 9.7 g/dL (11.5-16.0); LYMPHOCYTES # (AUTO) 1.4 10^3/uL (1.0-4.0); LYMPHOCYTES % (AUTO) 12 % (12-44); MEAN CORPUSCULAR HEMOGLOBIN 29 pg (25-34); MEAN CORPUSCULAR HGB CONC 33 g/dL (32-36); MEAN CORPUSCULAR VOLUME 90 fL (80-99); MEAN PLATELET VOLUME 9.4 fL (9.0-12.2); MONOCYTES % (AUTO) 9 % (0-12); NEUTROPHILS # (AUTO) 9.3 10^3/uL (1.8-7.8); NEUTROPHILS % (AUTO) 77 % (42-75); PLATELET COUNT 255 10^3/uL (130-400)
[2022-04-23 04:17] LABS: ALBUMIN 2.6 GM/DL (3.2-4.5); POTASSIUM 2.7 MMOL/L (3.6-5.0)
[2022-04-23 04:18] LABS: CALCIUM 7.4 MG/DL (8.5-10.1)
[2022-04-23 04:19] LABS: TOTAL PROTEIN 5.1 GM/DL (6.4-8.2)
[2022-04-23 04:21] LABS: BILIRUBIN,TOTAL 1.1 MG/DL (0.1-1.0)
[2022-04-23 04:23] LABS: CREATININE SERUM 0.56 MG/DL (0.60-1.30)
[2022-04-23 07:24] VITALS: BP 156/90
[2022-04-23] MEDS: NS IV 1000 ML 1,000 ML IV SCH (07:36)
--- NOTE | 2022-04-23 08:38 | Physical Therapy Daily Note ---
PT Daily Note-Current Subjective Patient in bed pre tx, agrees to PT, has no complaints of pain. Appearance Patient in recliner post tx with nurse call, phone, tray, all needs met, chair alarm on, telesitter in room. Mental Status Patient Orientation: Person, Place, Situation Attachments: Oxygen, Rick Catheter, IV Transfers SCALE: Activities may be completed with or without assistive devices. 4-Prxncwkdwu-ivrdiys completes the activity by him/herself with no assistance from a helper. 5-Set-up or Clean-up Assistance-helper sets up or cleans up; patient completes activity. [place] assists only prior to or following the activity. 4-Supervision or Touching Assistance-helper provides verbal cues and/or touching/steadying and/or contact guard assistance as patient completes activity. Assistance may be provided throughout the activity or intermittently. 3-Partial/Moderate Assistance-helper does LESS THAN HALF the effort. [place] lifts, holds or supports trunk or limbs, but provides less than half the effort. 2-Substantial/Maximal Assistance-helper does MORE THAN HALF the effort. [place] lifts or holds trunk or limbs and provides more than half the effort. 0-Cemahzqov-zxhveh does ALL the effort. Patient does none of the effort to complete the activity. Or, the assistance of 2 or more helpers is required for the patient to complete the activity. If activity was not attempted, code reason: 7-Patient Refused. 9-Not Applicable-not attempted and the patient did not perform the activity befo re the current illness, exacerbation or injury. 10-Not Attempted due to Environmental Limitations-(lack of equipment, weather re straints, etc.). 88-Not Attempted due to Medical Conditions or Safety Concerns. Roll Left & Right (QC): 6 Lying to Sitting/Side of Bed(Q: 6 Sit to Stand (QC): 4 Chair/Rgj-ag-Phkyb Xfer(QC): 4 Gait Training Distance: 10' Walk 10 feet (QC): 4 Gait Persons Needed: 1 Gait Assistive Device: FWW slow, slumped posture, shuffles Exercises Seated Therapy Exercises: Ankle pumps, Long arc quads Seated Reps: 20 Treatments bed mobility and transfers, ambulation, LE ROM Assessment Current Status: Fair Progress slight unsteadiness during ambulation but no LOB PT Fpc Goals Fpc Goals PT Fpc Goals Time Frame: Apr 30, 2022 Roll Left & Right (QC): 6 Sit to Lying (QC): 6 Lying-Sitting on Side/Bed(QC): 6 Sit to Stand (QC): 6 Chair/Zpm-wn-Xgjyv Xfer(QC): 6 Toilet Transfer (QC): 6 Walk 10 feet (QC): 6 Walk 50ft with 2 Turns (QC): 6 Walk 150 ft (QC): 6 PT Plan Problem List Problem List: Activity Tolerance, Functional Strength, Safety, Balance, Gait, Transfer, Bed Mobility, ROM Treatment/Plan Treatment Plan: Continue Plan of Care Treatment Plan: Bed Mobility, Education, Functional Activity Simone, Functional Strength, Gait, Safety, Therapeutic Exercise, Transfers Treatment Duration: Apr 30, 2022 Frequency: 6 times per week Estimated Hrs Per Day: .25 hour per day Safety Risks/Education Patient Education: Gait Training, Transfer Techniques, Correct Positioning, Safety Issues Teaching Recipient: Patient Teaching Methods: Demonstration, Discussion Response to Teaching: Reinforcement Needed Time/GCodes Time In: 0815 Time Out: 08 Total Billed Treatment Time: 10 Total Billed Treatment 1 visit FA MANISH DOSS PT Apr 23, 2022 08:38
[2022-04-23] MEDS: SERTRALINE 100 MG (ZOLOFT) TAB PO SCH (08:43)
[2022-04-23] MEDS: lisINopril 10 MG (PRINIVIL) TABLET PO SCH (08:43)
[2022-04-23] MEDS: PANTOPRAZOLE 40 MG (PROTONIX) VIAL IV SCH ×2 (08:43→20:12)
--- NOTE | 2022-04-23 10:53 | Progress Note - Hospitalist ---
Subjective HPI/CC On Admission Date Seen by Provider: Apr 23, 2022 Time Seen by Provider: 10:48 Chief complaint: Overdose requiring intubation History of present illness: This is a 56-year-old female who presented to the ER after overdosing on Ativan and ultimately required intubation. No other details are obtainable. Subjective/Events-last exam Patient wore BiPAP last night and reports feeling much better today with less shortness of breath ambulating independently to the bathroom and back and was able to take shower this morning. She denies chest pain oxygen requirements have decreased she is currently on 2 L with an O2 saturation of 94%. She denies any sputum production denies sore throat. Focused Exam Lactate Level 04/20/22 19:40: Lactic Acid Level 0.95 Objective Exam Vital Signs Vital Signs Date Time Temp Pulse Resp B/P (MAP) Pulse Ox O2 Delivery O2 Flow Rate FiO2 04/23/22 08:15 94 High Flow N/C 2.00 04/23/22 07:24 37.6 96 24 156/90 (112) 04/20/22 23:18 35 Capillary Refill : Less Than 3 Seconds General Appearance: No Apparent Distress Respiratory: No Accessory Muscle Use, No Respiratory Distress, Other (Coarse breath sounds in the bases some diminishment on the right otherwise clear) Cardiovascular: Regular Rate, Rhythm, No Edema, No Gallop, No JVD, No Murmur, Normal Peripheral Pulses Extremity: Pedal Edema ( 1+ patient drinking well continuing to receive IV fluids) Results/Procedures Lab Laboratory Tests 04/23/22 04:00 Patient resulted labs reviewed. Assessment/Plan Assessment and Plan Assess & Plan/Chief Complaint (1) Respiratory failure with hypoxia Status: Acute Assessment & Plan: Secondary to EtOH and benzodiazepine overdose 04/21 extubated yesterday and progressively weaning supplemental oxygen 04/23 respiratory failure due to drug overdose with resultant atelectasis versus a component of aspiration pneumonitis likely reason for group G strep improved with BiPAP last night continue penicillin. Patient is likely low volume overloaded now that p.o. intake is improved will DC IV fluids and DC Rick. Qualifiers: Qualified Codes: J96.01 - Acute respiratory failure with hypoxia (2) Benzodiazepine overdose Status: Acute Assessment & Plan: Requiring intubation for somnolence and hypoxia/hypoventilation. Appreciate Eula recommendations. 04/21 extubated yesterday. [facility] screened and reported okay for home d/c when medically stable. Qualifiers: Qualified Codes: T42.4X2A - Poisoning by benzodiazepines, intentional self- harm, initial encounter (3) Suicide attempt Status: Acute Assessment & Plan: Mental health eval when medically stable (4) Pupil diameter unequal Status: Acute Assessment & Plan: Per ER notes present on admission, CT head okay (5) Leukocytosis Status: Acute Assessment & Plan: No clear sign of infection, suspect stress reaction, sputum culture per Eula on 04/20 pending 04/22- sputum positive for GBS, see pneumonia dx. (6) Subependymoma Status: Chronic Assessment & Plan: Per history, uncertain chronicity or significance. (7) Alcohol abuse Status: Acute (8) Pneumonia Status: Acute Assessment & Plan: Penicillin started 7/8 am. Qualifiers: Qualified Codes: J15.3 - Pneumonia due to Streptococcus, group b (9) Hypertension Status: Chronic Assessment & Plan: Resumed home lisinopril, BP not controlled, will add HCTZ. Qualifiers: Qualified Codes: I10 - Essential (primary) hypertension (10) Anxiety Status: Chronic Assessment & Plan: Will try hydroxyzine for acute anxiety. (11) DVT prophylaxis Status: Acute Assessment & Plan: Enoxaparin Critical Care Ventilator Management JUDITH MOODY MD Apr 23, 2022 10:52
[2022-04-23 12:20] VITALS: BP 178/97
[2022-04-23] MEDS ORDERED: ACETAMINOPHEN 325 MG TABLET ONE (15:37)
[2022-04-23] MEDS ORDERED: ACETAMINOPHEN 325 MG TABLET PO PRN (15:45)
[2022-04-23 16:11] VITALS: BP 164/99
[2022-04-23 19:36] VITALS: BP 166/94
[2022-04-23] MEDS: traZODone 50 MG (DESYREL) TAB PO PRN (20:12)
[2022-04-23] MEDS: doxAzosin 2 MG (CARDURA) TAB PO SCH (20:12)
[2022-04-23] MEDS: hydrOXYzine (VISTARIL/ATARAX) 25 MG capsule/tablet PO PRN (20:12)
[2022-04-23] MEDS: ENOXAPARIN 40 MG/0.4 ML (LOVENOX) SYR SC SCH (20:14)
[2022-04-24] VITALS (8 sets, daily range): BP systolic 114–162; BP diastolic 62–101
[2022-04-24] MEDS: RT-ALBUTEROL/IPRATROPIUM 3 ML (DUONEB) VIAL INH SCH ×3 (02:44→21:32)
[2022-04-24] MEDS: NS IV SCH ×6 (02:54→23:36)
[2022-04-24] MEDS: PENICILLIN POTASSIUM IV SCH ×6 (02:54→23:36)
[2022-04-24] MEDS: THIAMINE 100 MG (VITAMIN B-1) TAB PO SCH (02:57)
[2022-04-24] MEDS: MULTIVIT W/MINERALS TAB (THERAGRAN M) NG SCH (02:57)
[2022-04-24 05:29] LABS: BASOPHILS # (AUTO) 0.1 10^3/uL (0.0-0.1); BASOPHILS % (AUTO) 1 % (0-10); EOSINOPHILS # (AUTO) 0.2 10^3/uL (0.0-0.3); EOSINOPHILS % (AUTO) 2 % (0-10); HEMATOCRIT 32 % (35-52); HEMOGLOBIN 10.4 g/dL (11.5-16.0); LYMPHOCYTES # (AUTO) 1.2 10^3/uL (1.0-4.0); LYMPHOCYTES % (AUTO) 11 % (12-44); MEAN CORPUSCULAR HEMOGLOBIN 29 pg (25-34); MEAN CORPUSCULAR HGB CONC 33 g/dL (32-36); MEAN CORPUSCULAR VOLUME 89 fL (80-99); MEAN PLATELET VOLUME 9.1 fL (9.0-12.2); MONOCYTES # (AUTO) 0.8 10^3/uL (0.0-1.0); MONOCYTES % (AUTO) 7 % (0-12); NEUTROPHILS % (AUTO) 78 % (42-75); PLATELET COUNT 257 10^3/uL (130-400); WHITE BLOOD COUNT 11.5 10^3/uL (4.3-11.0)
[2022-04-24 05:37] LABS: ALBUMIN 2.9 GM/DL (3.2-4.5)
[2022-04-24 05:38] LABS: POTASSIUM 2.6 MMOL/L (3.6-5.0)
[2022-04-24 05:39] LABS: CALCIUM 8.4 MG/DL (8.5-10.1)
[2022-04-24 05:40] LABS: TOTAL PROTEIN 5.8 GM/DL (6.4-8.2)
[2022-04-24 05:42] LABS: BILIRUBIN,TOTAL 0.9 MG/DL (0.1-1.0)
[2022-04-24 05:44] LABS: CREATININE SERUM 0.64 MG/DL (0.60-1.30)
[2022-04-24] MEDS: lisINopril 10 MG (PRINIVIL) TABLET PO SCH (08:10)
[2022-04-24] MEDS: SERTRALINE 100 MG (ZOLOFT) TAB PO SCH (08:10)
[2022-04-24] MEDS: PANTOPRAZOLE 40 MG (PROTONIX) VIAL IV SCH ×2 (08:10→20:35)
[2022-04-24] MEDS ORDERED: KCL 10 MEQ TAB (MICRO K) PO ONE (12:30)
--- NOTE | 2022-04-24 12:38 | Progress Note - Hospitalist ---
Subjective HPI/CC On Admission Date Seen by Provider: Apr 24, 2022 Time Seen by Provider: 12:32 Chief complaint: Overdose requiring intubation History of present illness: This is a 56-year-old female who presented to the ER after overdosing on Ativan and ultimately required intubation. No other details are obtainable. Subjective/Events-last exam Patient feeling better denying shortness of breath less chest congestion. She reports feeling extremely remorseful in regards to her overdose and the pain It has caused her family. she denies suicidal ideation. Objective Exam Vital Signs Vital Signs Date Time Temp Pulse Resp B/P (MAP) Pulse Ox O2 Delivery O2 Flow Rate FiO2 04/24/22 12:06 36.5 95 20 138/101 (113) 98 High Flow N/C 2.00 04/20/22 23:18 35 Capillary Refill : Less Than 3 Seconds General Appearance: No Apparent Distress Respiratory: No Accessory Muscle Use, No Respiratory Distress, Other (Some coarse breath sounds in the bases otherwise chest is clear) Cardiovascular: Regular Rate, Rhythm, No Edema, No Gallop, No JVD, No Murmur, Normal Peripheral Pulses Results/Procedures Lab Laboratory Tests 04/24/22 05:20 Patient resulted labs reviewed. Assessment/Plan Assessment and Plan Assess & Plan/Chief Complaint (1) Respiratory failure with hypoxia Status: Acute Assessment & Plan: Secondary to EtOH and benzodiazepine overdose 04/21 extubated yesterday and progressively weaning supplemental oxygen 04/23 respiratory failure due to drug overdose with resultant atelectasis versus a component of aspiration pneumonitis likely reason for group G strep improved with BiPAP last night continue penicillin. Patient is likely low volume overloaded now that p.o. intake is improved will DC IV fluids and DC Rick. 04/24 respiratory failure resolving down to 1 L of O2 with saturations greater than 90 we will see about discontinuing with likely discharge tomorrow. She has seen a therapist at [facility] and will need to be set up next week with a therapist. She has been cleared by [facility] health screener earlier per psychiatric social worker supervisor note for discharge to home. She does have some hypokalemia likely thiazide related potassium was 2.6 will initiate oral replacement she is asymptomatic otherwise feeling well with repeat potassium in the morning. Qualifiers: Qualified Codes: J96.01 - Acute respiratory failure with hypoxia (2) Benzodiazepine overdose Status: Acute Assessment & Plan: Requiring intubation for somnolence and hypo albina/hypoventilation. Appreciate Eula recommendations. 04/21 extubated yesterday. [facility] screened and reported okay for home d/c when medically stable. Qualifiers: Qualified Codes: T42.4X2A - Poisoning by benzodiazepines, intentional self- harm, initial encounter (3) Suicide attempt Status: Acute Assessment & Plan: Mental health eval when medically stable (4) Pupil diameter unequal Status: Acute Assessment & Plan: Per ER notes present on admission, CT head okay (5) Leukocytosis Status: Acute Assessment & Plan: No clear sign of infection, suspect stress reaction, sputum culture per Eula on 04/20 pending 04/22- sputum positive for GBS, see pneumonia dx. (6) Subependymoma Status: Chronic Assessment & Plan: Per history, uncertain chronicity or significance. (7) Alcohol abuse Status: Acute (8) Pneumonia Status: Acute Assessment & Plan: Penicillin started 7/8 am. Qualifiers: Qualified Codes: J15.3 - Pneumonia due to Streptococcus, group b (9) Hypertension Status: Chronic Assessment & Plan: Resumed home lisinopril, BP not controlled, will add HCTZ. Qualifiers: Qualified Codes: I10 - Essential (primary) hypertension (10) Anxiety Status: Chronic Assessment & Plan: Will try hydroxyzine for acute anxiety. (11) DVT prophylaxis Status: Acute Assessment & Plan: Enoxaparin Critical Care Ventilator Management JUDITH MOODY MD Apr 24, 2022 12:38
[2022-04-24] MEDS ORDERED: RT-ALBUTEROL/IPRATROPIUM 3 ML (DUONEB) VIAL INH PRN (17:00)
[2022-04-24] MEDS: KCL 10 MEQ TAB (MICRO K) PO SCH (20:34)
[2022-04-24] MEDS: ENOXAPARIN 40 MG/0.4 ML (LOVENOX) SYR SC SCH (20:35)
[2022-04-24] MEDS: doxAzosin 2 MG (CARDURA) TAB PO SCH (20:35)
[2022-04-25] MEDS: PENICILLIN POTASSIUM IV SCH ×3 (02:51→11:48)
[2022-04-25] MEDS: NS IV SCH ×3 (02:51→11:48)
[2022-04-25 04:54] LABS: BASOPHILS # (AUTO) 0.1 10^3/uL (0.0-0.1); BASOPHILS % (AUTO) 1 % (0-10); EOSINOPHILS # (AUTO) 0.3 10^3/uL (0.0-0.3); EOSINOPHILS % (AUTO) 3 % (0-10); HEMATOCRIT 32 % (35-52); HEMOGLOBIN 10.5 g/dL (11.5-16.0); LYMPHOCYTES # (AUTO) 1.4 10^3/uL (1.0-4.0); LYMPHOCYTES % (AUTO) 16 % (12-44); MEAN CORPUSCULAR HEMOGLOBIN 29 pg (25-34); MEAN CORPUSCULAR HGB CONC 33 g/dL (32-36); MEAN CORPUSCULAR VOLUME 89 fL (80-99); MEAN PLATELET VOLUME 9.2 fL (9.0-12.2); MONOCYTES # (AUTO) 0.7 10^3/uL (0.0-1.0); MONOCYTES % (AUTO) 7 % (0-12); NEUTROPHILS # (AUTO) 6.5 10^3/uL (1.8-7.8); NEUTROPHILS % (AUTO) 71 % (42-75); PLATELET COUNT 301 10^3/uL (130-400); WHITE BLOOD COUNT 9.1 10^3/uL (4.3-11.0)
[2022-04-25 05:05] LABS: ALBUMIN 3.1 GM/DL (3.2-4.5); POTASSIUM 2.8 MMOL/L (3.6-5.0)
[2022-04-25 05:06] LABS: CALCIUM 8.5 MG/DL (8.5-10.1)
[2022-04-25 05:09] LABS: BILIRUBIN,TOTAL 0.7 MG/DL (0.1-1.0)
[2022-04-25 05:11] LABS: CREATININE SERUM 0.64 MG/DL (0.60-1.30)
[2022-04-25] MEDS: THIAMINE 100 MG (VITAMIN B-1) TAB PO SCH (06:00)
[2022-04-25] MEDS: MULTIVIT W/MINERALS TAB (THERAGRAN M) NG SCH (06:00)
[2022-04-25] MEDS: RT-ALBUTEROL/IPRATROPIUM 3 ML (DUONEB) VIAL INH SCH (07:22)
[2022-04-25 07:37] VITALS: BP 170/94
--- NOTE | 2022-04-25 09:00 | Speech Therapy Daily Note ---
Speech Daily Progress Note Subjective Date Seen by Provider: Apr 25, 2022 Time Seen by Provider: 08:22 The patient was seated upright on the edge of the bed upon entrance to her room by the clinician. The patient was alert and greeted the clinician appropriately, agreeing to participation in the dysphagia treatment session. Objective While the patient initially agreed to the dysphagia treatment session, she politely refused food items. The patient was agreeable to limited P.O. trials of thin liquid and nectar-thick liquid. The patient consumed four straw drinks of thin liquid and four straw drinks of nectar-thick liquid prior to polite deferral. The patient did not display s/s of suspected aspiration with the limited P.O. trials presented and the patient's vocal quality remained clear. The patient's vocal quality is improving, however, remains dysphonic (harsh, breathy). The patient is currently on room air. Due to the patient's deferral of continuous P.O. trials to assess for aspiration with thin liquids, the clinician is unable to provide an updated diet consistency. At this time, the prior plan of care remains appropriate. The clinician's recommendations were discussed and shared with the RN following the treatment session. Assessment Assessment Current Status: Fair Progress Treatment Plan Continue Plan of Care Speech Short Term Goals Short Term Goals Short Term Goals 1. The patient, staff, and family will follow safe swallowing strategies with 9 0% accuracy, independently. Time Frame-STG: Three Days. Speech Detention Goals Detention Goals 1. The patient will consumed the least restrictive diet without s/s of suspected aspiration. Time Frame: One Week. Speech-Plan Treatment Plan Speech Therapy Treatment Plan: Continue Plan of Care Treatment Duration: Apr 28, 2022 Frequency: 2 times per week Estimated Hrs Per Day: .25 hour per day Rehab Potential: Guarded Safety Risks/Education Teaching Recipient: Patient Teaching Methods: Discussion Response to Teaching: Reinforcement Needed Education Topics Provided: Recommendations, S/s of Suspected Aspiration, Aspiration Risks Time Speech Therapy Time In: 08:22 Speech Therapy Time Out: 08:35 Total Billed Time: 13 Billed Treatment Time LONG Chiu Cyn MANNIE LEUNGJACOBY ST Apr 25, 2022 09:00
[2022-04-25] MEDS: SERTRALINE 100 MG (ZOLOFT) TAB PO SCH (09:05)
[2022-04-25] MEDS: lisINopril 10 MG (PRINIVIL) TABLET PO SCH (09:05)
[2022-04-25] MEDS: PANTOPRAZOLE 40 MG (PROTONIX) VIAL IV SCH (09:05)
[2022-04-25] MEDS: KCL 10 MEQ TAB (MICRO K) PO SCH (09:05)
--- NOTE | 2022-04-25 09:34 | Physical Therapy Daily Note ---
PT Daily Note-Current Subjective Patient very agreeable to participate with PT. Mental Status Patient Orientation: Normal For Age Transfers SCALE: Activities may be completed with or without assistive devices. 8-Zzpltfhjhm-eyljvbu completes the activity by him/herself with no assistance from a helper. 5-Set-up or Clean-up Assistance-helper sets up or cleans up; patient completes activity. [place] assists only prior to or following the activity. 4-Supervision or Touching Assistance-helper provides verbal cues and/or touching/steadying and/or contact guard assistance as patient completes activity. Assistance may be provided throughout the activity or intermittently. 3-Partial/Moderate Assistance-helper does LESS THAN HALF the effort. [place] lifts, holds or supports trunk or limbs, but provides less than half the effort. 2-Substantial/Maximal Assistance-helper does MORE THAN HALF the effort. [place] lifts or holds trunk or limbs and provides more than half the effort. 2-Fmolvlghi-mgfjad does ALL the effort. Patient does none of the effort to complete the activity. Or, the assistance of 2 or more helpers is required for the patient to complete the activity. If activity was not attempted, code reason: 7-Patient Refused. 9-Not Applicable-not attempted and the patient did not perform the activity before the current illness, exacerbation or injury. 10-Not Attempted due to Environmental Limitations-(lack of equipment, weather restraints, etc.). 88-Not Attempted due to Medical Conditions or Safety Concerns. Sit to Stand (QC): 6 Gait Training Distance: 600' Walk 10 feet (QC): 6 Walk 50 ft with 2 Turns(QC): 6 Walk 150 ft (QC): 6 Gait Assistive Device: None safe and functional with no deviation Assessment PT to dismiss patient from services at this time due to independent PLOF. PT Assisted Goals Suction Roller Goals PT Assisted Goals Time Frame: Apr 30, 2022 Roll Left & Right (QC): 6 Sit to Lying (QC): 6 Lying-Sitting on Side/Bed(QC): 6 Sit to Stand (QC): 6 Chair/Amh-xu-Xoprf Xfer(QC): 6 Toilet Transfer (QC): 6 Walk 10 feet (QC): 6 Walk 50ft with 2 Turns (QC): 6 Walk 150 ft (QC): 6 PT Plan Treatment/Plan Treatment Plan: Discontinue PT, goals met Treatment Plan: Bed Mobility, Education, Functional Activity Simone, Functional Strength, Gait, Safety, Therapeutic Exercise, Transfers Treatment Duration: Apr 30, 2022 Frequency: 6 times per week Estimated Hrs Per Day: .25 hour per day Time/GCodes Time In: 841 Time Out: 855 Total Billed Treatment Time: 14 Total Billed Treatment 1 visit FA 14 min NATHANAEL ESQUIVEL PT Apr 25, 2022 09:34
[2022-04-25 10:25] VITALS: BP 170/94
[2022-04-25] MEDS ORDERED: KCL 20 MEQ TAB (K-DUR) PO ONE (11:00)
[2022-04-25] MEDS ORDERED: MULT-1137 NG (11:18)
[2022-04-25] MEDS ORDERED: POTA10TA37 PO (11:18)
[2022-04-25] MEDS ORDERED: HYDR25TA4 PO (11:18)
--- NOTE | 2022-04-25 11:19 | Discharge Summary ---
Discharge Summary Hospital Course Was the Problem List Reviewed?: Yes Problems/Dx: (1) Suicide attempt Status: Acute (2) Benzodiazepine overdose Status: Acute Qualifiers: Qualified Codes: T42.4X2A - Poisoning by benzodiazepines, intentional self- harm, initial encounter (3) Respiratory failure with hypoxia Status: Acute Qualifiers: Qualified Codes: J96.01 - Acute respiratory failure with hypoxia Hospital Course Date of Admission: Apr 16, 2022 at 23:35 Admission Diagnosis : Family Physician/[place] [place] Date of Discharge: 04/25/22 Discharge Diagnosis: OD, resp failure Hospital Course: Patient was admitted after purposeful OD on Ativan and was subsequently intubated to protect airway. Patient remained stable and was extubated per wean protocol. Patient had strep B pnemonitis and completed abx. Patient was deemed stable and no evidence of SI per mental health so she was DC. Labs and Pending Lab Test: Laboratory Tests 04/25/22 04:45: White Blood Count 9.1, Red Blood Count 3.62L, Hemoglobin 10.5L, Hematocrit 32L, Mean Corpuscular Volume 89, Mean Corpuscular Hemoglobin 29, Mean Corpuscular Hemoglobin Concent 33, Red Cell Distribution Width 13.7, Platelet Count 301, Mean Platelet Volume 9.2, Immature Granulocyte % (Auto) 2, Neutrophils (%) (Auto) 71, Lymphocytes (%) (Auto) 16, Monocytes (%) (Auto) 7, Eosinophils (%) (Auto) 3, Basophils (%) (Auto) 1, Neutrophils # (Auto) 6.5, Lymphocytes # (Auto) 1.4, Monocytes # (Auto) 0.7, Eosinophils # (Auto) 0.3, Basophils # (Auto) 0.1, Immature Granulocyte # (Auto) 0.2H, Sodium Level 142, Potassium Level 2.8L, Chloride Level 104, Carbon Dioxide Level 26, Anion Gap 12, Blood Urea Nitrogen 6L, Creatinine 0.64, Estimat Glomerular Filtration Rate 105, BUN/Creatinine Ratio 9, Glucose Level 103, Calcium Level 8.5, Corrected Calcium 9.2, Total Bilirubin 0.7, Aspartate Amino Transf (AST/SGOT) 26, Alanine Aminotransferase (ALT/SGPT) 48, Alkaline Phosphatase 76, Total Protein 6.0L, Albumin 3.1L Microbiology 04/20/22 Gram Stain - Final, Complete 04/20/22 Sputum Culture - Final, Complete Usual upper respiratory yue Strep agalactiae Group B Home Meds Active Hydrochlorothiazide 25 Mg Tablet 25 Mg PO DAILY Potassium Chloride 10 Meq Tab.er.prt 10 Meq PO DAILY Tab-A-Curtis Multivit with Iron (Multivitamin/Iron/Folic Acid) 18 Mg Iron-400 Mcg Tablet 1 Ea NG DAILY@0700 Reported Doxazosin Mesylate 2 Mg Tablet 4 Mg PO HS TAKES 2 (2MG) TABS Sertraline HCl 100 Mg Tablet 150 Mg PO DAILY TAKES 1 & (100MG) TABS Trazodone HCl 150 Mg Tablet 150 Mg PO HS Lisinopril 10 Mg Tablet 10 Mg PO DAILY Lamictal (Lamotrigine) 200 Mg Tab 200 Mg PO HS Ativan (Lorazepam) 1 Mg Tablet 0.5 Mg PO 1200 TAKES OF A 1MG TAB Ativan (Lorazepam) 1 Mg Tablet 1 Mg PO BID Assessment/Pt Instructions pcp 1 week Discharge Planning: <30 minutes discharge planning Discharge Instructions Discharge Diet: No Restrictions Discharge Physical Examination Vital Signs Vital Signs Date Time Temp Pulse Resp B/P (MAP) Pulse Ox O2 Delivery O2 Flow Rate FiO2 04/25/22 10:25 37.1 79 20 170/94 (119) 93 Room Air 04/24/22 16:06 21 04/24/22 16:02 0.00 General Appearance: No Apparent Distress, WD/WN, Chronically ill Respiratory: Lungs Clear, Normal Breath Sounds Cardiovascular: Regular Rate, Rhythm Neurologic/Psychiatric: Alert, Oriented x3, No Motor/Sensory Deficits, Normal Mood/Affect Allergies: Coded Allergies: No Known Drug Allergies (Unverified , 10/21/19) Discharge Summary Date of Admission Apr 16, 2022 at 23:35 Date of Discharge Discharge Date: Apr 25, 2022 Admission Diagnosis Assessment: Overdose Respiratory failure Ventilator dependent Plan: eICU appreciated Discharge Diagnosis Assessment: Overdose Respiratory failure Ventilator dependent Plan: eICU appreciated (1) Suicide attempt Status: Acute (2) Benzodiazepine overdose Status: Acute Qualifiers: Qualified Codes: T42.4X2A - Poisoning by benzodiazepines, intentional self- harm, initial encounter (3) Respiratory failure with hypoxia Status: Acute Qualifiers: Qualified Codes: J96.01 - Acute respiratory failure with hypoxia SHADI HUNT DO Apr 25, 2022 11:18
[2022-04-25 11:48] VITALS: BP 176/100
[2022-04-25 11:54] VITALS: BP 188/90
--- NOTE | 2022-04-25 12:10 | Occupational Ther Daily Note ---
OT Current Status-Daily Note Subjective Pt standing w/o AD at beginning of tx and agreeable to OT tx at this time. ADL-Treatment Therapy Code Descriptions/Definitions Functional Bazine Measure: 0=Not Assessed/NA 4=Minimal Assistance 1=Total Assistance 5=Supervision or Setup 2=Maximal Assistance 6=Modified Bazine 3=Moderate Assistance 7=Complete IndependenceSCALE: Activities may be completed with or without assistive devices. 0-Csmimajjga-lrohlxy completes the activity by him/herself with no assistance from a helper. 5-Set-up or Clean-up Assistance-helper sets up or cleans up; patient completes activity. [place] assists only prior to or following the activity. 4-Supervision or Touching Assistance-helper provides verbal cues and/or touching/steadying and/or contact guard assistance as patient completes activity. Assistance may be provided throughout the activity or intermittently. 3-Partial/Moderate Assistance-helper does LESS THAN HALF the effort. [place] lifts, holds or supports trunk or limbs, but provides less than half the effort. 2-Substantial/Maximal Assistance-helper does MORE THAN HALF the effort. [place] lifts or holds trunk or limbs and provides more than half the effort. 1-Cgcnvbhmd-kjzxrm does ALL the effort. Patient does none of the effort to complete the activity. Or, the assistance of 2 or more helpers is required for the patient to complete the activity. If activity was not attempted, code reason: 7-Patient Refused. 9-Not Applicable-not attempted and the patient did not perform the activity before the current illness, exacerbation or injury. 10-Not Attempted due to Environmental Limitations-(lack of equipment, weather restraints, etc.). 88-Not Attempted due to Medical Conditions or Safety Concerns. Other Treatment Pt declined ADLs at this time and stated that she has already completed them. Pt completed BUE strengthening exercises with yellow theraband completing 20 reps each completing elbow flexion/extension, horizontal abduction/adduction, and punch outs. Pt sitting EOB at end of tx with nursing in room and call light in reach and all needs met. OT Retirement Goals Customs Appraiser Goals Time Frame: May 06, 2022 Oral Hygiene (QC): 5 Toileting Hygiene (QC): 4 Shower/Bathe Self (QC): 4 Upper Body Dressing (QC): 5 Lower Body Dressing (QC): 4 On/Off Footwear (QC): 4 Additional Goals: 1-Demonstrate ADL Tasks, 2-Verbalize Understanding, 3- ImproveStrength/Simone 1=Demonstrate adherence to instructed precautions during ADL tasks. 2=Patient will verbalize/demonstrate understanding of assistive devices/mo difications for ADL. 3=Patient will improve strength/tolerance for activity to enable patient to perform ADL's. OT Education/Plan Problem List/Assessment Assessment: Decreased Activ Tolerance, Decreased UE Strength, Impaired I ADL's Discharge Recommendations Plan/Recommendations: Continue POC Treatment Plan/Plan of Care Patient would benefit from OT for education, treatment and training to promote independence in ADL's, mobility, safety and/or upper extremity function for ADL's. Plan of Care: ADL Retraining, Functional Mobility, UE Funct Exercise/Act Treatment Duration: May 06, 2022 Frequency: 3 times per week (3-5 times per week) Rehab Potential: Guarded Time/GCodes Start Time: 11:23 Stop Time: 11:33 Total Time Billed (hr/min): 10 Billed Treatment Time 1 visit, 1 EX (10min) Abiola Bernstein Apr 25, 2022 12:10
[2022-04-25] MEDS ORDERED: KCL 20 MEQ TAB (K-DUR) PO SCH (13:00)
[2022-04-25 13:50] VITALS: BP 188/90
== END 2022-04-25 13:52 | disposition home or self-care (01) | DRG 917 ==
LOC: EDUNIT# 20:18 → ER 20:19 → ICU 23:35 → 4TH 04-21 13:10
PROVIDERS: ADMIT Internal Medicine; ATTEND Internal Medicine
PROC: 5A1945Z Respiratory Ventilation, 24-96 Consecutive Hours (ICD-10-PCS; principal; 2022-04-16)
PROC: 0BH17EZ Insertion of Endotracheal Airway into Trachea, Via Natural or Artificial Opening (ICD-10-PCS; 2022-04-16)
PROC: 5A09357 Assistance with Respiratory Ventilation, Less than 24 Consecutive Hours, Continuous Positive Airway Pressure (ICD-10-PCS; 2022-04-20)
PROC: 5A0945A Assistance with Respiratory Ventilation, 24-96 Consecutive Hours, High Flow/Velocity Cannula (ICD-10-PCS; 2022-04-21)
DX: T42.4X2A Poisoning by benzodiazepines, intentional self-harm, initial encounter (principal); J15.3 Pneumonia due to streptococcus, group B; J96.01 Acute respiratory failure with hypoxia; T51.0X2A Toxic effect of ethanol, intentional self-harm, initial encounter; I10 Essential (primary) hypertension; D43.2 Neoplasm of uncertain behavior of brain, unspecified; F10.10 Alcohol abuse, uncomplicated; Y90.1 Blood alcohol level of 20-39 mg/100 ml; F41.9 Anxiety disorder, unspecified; F32.A Depression, unspecified; Z82.49 Family history of ischemic heart disease and other diseases of the circulatory system
CPT/HCPCS: 31500; 36415; 36569; 36600; 51702; 70450; 71045; 76937; 80048; 80053; 80306; 80320; 80329; 81000; 82805; 82947; 83605; 83735; 84100; 84443; 84478; 85007; 85025; 85027; 87070; 87077; 87081; 87205; 93005; 93041; 94002; 94003; 94640; 94660; 94760; 94799; 96372; 96374; 99291

== ENCOUNTER → 2022-05-18 | Outpatient (CLI) | payer MEDICAID ==
[~2022-05-18] MED LIST changes: +DOXA2TAB2 PO; +HYDR25TA4 PO; +LORA-405 PO; +MULT-1137 NG; +NF-LAMO200 PO; +POTA10TA37 PO; +SERT-414 PO; +TRAZ150T72 PO
--- NOTE | 2022-05-18 10:31 | Diagnostic Imaging Report ---
CLINICAL INDICATION: Patient with subependymoma. EXAM: MRI of the brain performed without IV contrast. Sequences include sagittal T1, axial T2, axial FLAIR, axial gradient echo, DWI, ADC map, and axial T1. COMPARISON: MRI of the brain with and without contrast dated 10/22/[address] without contrast dated 04/16/2022. FINDINGS: There is a stable sized 0.9 cm x 1.7 cm x 2.7 cm (AP x Trans x CC) heterogeneous T2 signal lesion with low gradient echo signal located in the inferior aspect of the 4th ventricle/foramen [place] region. This mass extends in the caudal direction to the C1 level. This area demonstrates dense calcification seen on the comparison head CT. This is most consistent with a subependymoma. There is no hydrocephalus. There is no evidence of acute cerebral infarct, intracranial hemorrhage, or gross mass effect. The brain parenchymal volume appears appropriate for patient's age. There is normal bhatia-white matter distinction. There is no significant midline shift or herniation. There is no evidence of hydrocephalus. The basal cisterns are unremarkable. The skull, extracranial soft tissue, and orbits are unremarkable. There is minimal mucosal thickening involving the right maxillary sinus. Temporal bones show no significant abnormality. IMPRESSION: 1: Stable lobulated mass in the inferior 4th ventricle/foramen [place] region, most consistent with a subependymoma. There is no hydrocephalus. 2: The remainder of the brain parenchyma is unremarkable. 3: Minimal paranasal sinus disease. Dictated by: Dictated on workstation # [id number]
== END ==
LOC: RAD 08:24
PROVIDERS: ATTEND Physician Assistant
DX: D43.2 Neoplasm of uncertain behavior of brain, unspecified (principal)
CPT/HCPCS: 70551

== ENCOUNTER 2022-11-26 08:57 | Emergency (ER) | payer MEDICAID, MEDICARE ==
[~2022-11-26 08:57] MED LIST changes: +POTA-177 PO; -POTA10TA37 PO
== END 2022-11-26 09:07 | disposition left against medical advice (07) ==
LOC: EDUNIT# 08:57 → ER 08:58
DX: R25.8 Other abnormal involuntary movements (principal); R51.9 Headache, unspecified; R00.2 Palpitations

== ENCOUNTER 2023-07-23 11:55 | Emergency (ER) | payer MEDICARE ==
[~2023-07-23] VITALS: Ht 170 cm; Wt 77.0 kg
--- NOTE | 2023-07-23 13:45 | ED Psychosocial ---
General Chief Complaint: Suicidal Ideation Risk Stated Complaint: SUICIDAL THOUGHTS Source: patient Exam Limitations: no limitations (BARNEY CHAPA APRN) History of Present Illness Date Seen by Provider: Jul 23, 2023 Time Seen by Provider: 13:10 Initial Comments 57-year-old female presents to the ER by police for suicidal ideation. She states that today she was on the phone with her insurance and made suicidal statements, the person on the other line called the police who then brought her to the ER. She denies a plan at this time. States that she is always suicidal, she has been suicidal for years. Denies any change in her suicidal ideation. She has not attempted to harm herself today. When asked if she would kill herself right now if she had access, she states she does not know. When asked if she were to leave the hospital if she would commit suicide, she also states she does not know. She states that her mind could change in the next 10 min utes. She did state "I would kill myself at any time, I am not afraid to ." Patient reports she has attempted suicide in the past. She states it was a little over one year ago, and she was seen in this hospital. At that time, she states she took 50 Ativan tablets and drank half a gallon of whiskey. She states that she at that time, and that they resuscitated her. She states that " if they would have just let me , I would not be dealing with this today." She states she drinks alcohol every other day to every day. States she drank last night. She reports she drinks due to chronic pain. She reports she has chronic allover body pain, and abdominal pain, as well as chronic nausea. Denies fevers, chest pain, shortness of air, diarrhea. She denies drug use, does smoke cigarettes. Her primary doctor and therapist are at [facility]. Upon chart review, patient was seen here for her suicidal attempt of overdose on ativan and alcohol in April 2022. She was intubated and in the ICU for several days. She did not have a cardiac arrest. (BARNEY CHAPA APRN) Allergies and Home Medications Allergies Coded Allergies: No Known Drug Allergies (Unverified , 10/21/19) Patient Home Medication List Home Medication List Reviewed: Yes (BARNEY CHAPA APRN) Doxazosin Mesylate (Doxazosin Mesylate) 2 Mg Tablet, 4 MG PO HS, (Reported) Entered as Reported by: AINSLEY WEAVER on 04/19/221206 Hydrochlorothiazide (Hydrochlorothiazide) 25 Mg Tablet, 25 MG PO DAILY Prescribed by: SHADI HUNT on 04/25/22 111 Lamotrigine (Lamictal) 200 Mg Tab, 200 MG PO HS, (Reported) Entered as Reported by: AINSLEY WEAVER on 04/19/221206 Lisinopril (Lisinopril) 10 Mg Tablet, 10 MG PO DAILY, (Reported) Entered as Reported by: AINSLEY WEAVER on 04/19/221206 Lorazepam (Ativan) 1 Mg Tablet, 1 MG PO BID, (Reported) Entered as Reported by: AINSLEY WEAVER on 04/19/221206 Lorazepam (Ativan) 1 Mg Tablet, 0.5 MG PO 1200, (Reported) Entered as Reported by: AINSLEY WEAVER on 04/19/221206 Multivitamin/Iron/Folic Acid (Tab-A-Curtis Multivit with Iron) 18 Mg Iron-400 Mcg Tablet, 1 EA NG DAILY@0700 Prescribed by: SHADI HUNT on 04/25/22 111 Potassium Chloride (Potassium Chloride) 10 Meq Tab.er.prt, 10 MEQ PO DAILY Prescribed by: SHADI HUNT on 04/25/22 111 Sertraline HCl (Sertraline HCl) 100 Mg Tablet, 150 MG PO DAILY, (Reported) Entered as Reported by: AINSLEY WEAVER on 04/19/221206 Trazodone HCl (Trazodone HCl) 150 Mg Tablet, 150 MG PO HS, (Reported) Entered as Reported by: AINSLEY WEAVER on 04/19/221206 Review of Systems Constitutional: see HPI (BARNEY CHAPA APRN) Past Gwvukyy-Wdvqfj-Jtuzzv Hx Seasonal Allergies Seasonal Allergies: No (BARNEY CHAPA APRN) Past Medical History Surgery/Hospitalization HX: per pt, previous heart attack w/ no stenting, HTN, brain tumor Surgeries: Yes Adenoidectomy, Tonsillectomy Respiratory: No Cardiac: Yes Hypertension Neurological: No Genitourinary: No Kidney Stones Gastrointestinal: No Musculoskeletal: No Endocrine: No HEENT: Yes Cataract Loss of Vision: Denies Hearing Impairment: Denies Cancer: No Psychosocial: Yes Anxiety, Depression Integumentary: No Blood Disorders: No (BARNEY CHAPA APRN) Family Medical History CAD Under 55 Years Old, Diabetes (BARNEY CHAPA APRN) Physical Exam Vital Signs - First Documented 07/23/23 07/23/23 13:00 19:00 Temp 36.7 Pulse 73 Resp 18 B/P (MAP) 140/84 (102) Pulse Ox 98 O2 Delivery Room Air (ESTUARDO MONTERO MD) Capillary Refill : (BARNEY CHAPA APRN) Height, Weight, BMI Height: '" Weight: lbs. oz. kg; 33.56 BMI Method: General Appearance: WD/WN, no apparent distress Neck: supple, normal inspection Respiratory: lungs clear, normal breath sounds, no respiratory distress, no accessory muscle use Cardiovascular: regular rate, rhythm Gastrointestinal: normal bowel sounds, non tender, soft Extremities: normal range of motion Neurologic/Psychiatric: alert, normal mood/affect Appearance/Memory: appropriate appearance Behavior/Eye Contact: refused to answer, increased rate of speech, belligerent, uncooperative (Answered most questions, but does not want to discuss her diagn oses and medications), other (Speaks very loud) Thoughts/Hallucinations: no apparent hallucination, flight of ideas Skin: normal color, warm/dry, other (Psoriasis in multiple locations) (BARNEY CHAPA APRN) Procedures/Interventions Date of ETT Placement: Apr 16, 2022 Time of ETT Placement: 2326 (BARNEY CHAPA APRN) Progress/Results/Core Measures Results/Orders Lab Results Laboratory Tests Test 07/23/23 13:45 07/23/23 13:48 07/23/23 14:02 Range/Units Urine Color YELLOW Urine Clarity CLEAR Urine pH 5.5 5-9 Urine Specific [place] >=1.030 1.016-1.022 Urine Protein 1+ H NEGATIVE Urine Glucose (UA) NEGATIVE NEGATIVE Urine Ketones NEGATIVE NEGATIVE Urine Nitrite NEGATIVE NEGATIVE Urine Bilirubin NEGATIVE NEGATIVE Urine Urobilinogen 0.2 < = 1.0 MG/DL Urine Leukocyte Esterase NEGATIVE NEGATIVE Urine RBC (Auto) NEGATIVE NEGATIVE Urine RBC NONE /HPF Urine WBC RARE /HPF Urine Squamous Epithelial Cells 0-2 /HPF Urine Crystals NONE /LPF Urine Bacteria NEGATIVE /HPF Urine Casts NONE /LPF Urine Mucus NEGATIVE /LPF Urine Culture Indicated NO Urine Opiates Screen NEGATIVE NEGATIVE Urine Oxycodone Screen NEGATIVE NEGATIVE Urine Methadone Screen NEGATIVE NEGATIVE Urine Propoxyphene Screen NEGATIVE NEGATIVE Urine Barbiturates Screen NEGATIVE NEGATIVE Ur Tricyclic Antidepressants Screen NEGATIVE NEGATIVE Urine Phencyclidine Screen NEGATIVE NEGATIVE Urine Amphetamines Screen NEGATIVE NEGATIVE Urine Methamphetamines Screen NEGATIVE NEGATIVE Urine Benzodiazepines Screen NEGATIVE NEGATIVE Urine Cocaine Screen NEGATIVE NEGATIVE Urine Cannabinoids Screen NEGATIVE NEGATIVE White Blood Count 10.9 4.3-11.0 10^3/uL Red Blood Count 4.70 3.80-5.11 10^6/uL Hemoglobin 14.9 11.5-16.0 g/dL Hematocrit 44 35-52 % Mean Corpuscular Volume 94 80-99 fL Mean Corpuscular Hemoglobin 32 25-34 pg Mean Corpuscular Hemoglobin Concent 34 32-36 g/dL Red Cell Distribution Width 12.5 10.0-14.5 % Platelet Count 266 130-400 10^3/uL Mean Platelet Volume 9.2 9.0-12.2 fL Immature Granulocyte % (Auto) 1 % Neutrophils (%) (Auto) 71 42-75 % Lymphocytes (%) (Auto) 19 12-44 % Monocytes (%) (Auto) 7 0-12 % Eosinophils (%) (Auto) 1 0-10 % Basophils (%) (Auto) 1 0-10 % Neutrophils # (Auto) 7.7 1.8-7.8 10^3/uL Lymphocytes # (Auto) 2.1 1.0-4.0 10^3/uL Monocytes # (Auto) 0.8 0.0-1.0 10^3/uL Eosinophils # (Auto) 0.1 0.0-0.3 10^3/uL Basophils # (Auto) 0.1 0.0-0.1 10^3/uL Immature Granulocyte # (Auto) 0.1 0.0-0.1 10^3/uL Sodium Level 144 135-145 MMOL/L Potassium Level 4.8 3.6-5.0 MMOL/L Chloride Level 107 98-107 MMOL/L Carbon Dioxide Level 24 21-32 MMOL/L Anion Gap 13 5-14 MMOL/L Blood Urea Nitrogen 9 7-18 MG/DL Creatinine 0.89 0.60-1.30 MG/DL Estimat Glomerular Filtration Rate 77 BUN/Creatinine Ratio 10 Glucose Level 86 70-105 MG/DL Calcium Level 9.3 8.5-10.1 MG/DL Corrected Calcium 9.1 8.5-10.1 MG/DL Total Bilirubin 0.4 0.1-1.0 MG/DL Aspartate Amino Transf (AST/SGOT) 16 5-34 U/L Alanine Aminotransferase (ALT/SGPT) 21 0-55 U/L Alkaline Phosphatase 76 40-136 U/L Total Protein 7.8 6.4-8.2 GM/DL Albumin 4.3 3.2-4.5 GM/DL Thyroid Stimulating Hormone (TSH) 0.77 0.35-4.94 UIU/ML Free Thyroxine 1.21 0.70-1.48 NG/DL Salicylates Level < 5.0 L 5.0-20.0 MG/DL Acetaminophen Level < 10 L 10-30 UG/ML Serum Alcohol 73 H <10 MG/DL SARS-CoV-2 RNA (RT-PCR) Not Detected Not Detecte (ESTUARDO MONTERO MD) My Orders Orders - ESTUARDO MONTERO MD Thyroid Stimulating Hormone (07/24/23 04:35) Free T4 (Free Thyroxine) (07/24/23 04:35) Rpr With Fta-Abs Reflex If Pos (07/24/23 04:35) Vitamin B 12 (07/24/23 04:35) Folic Acid (07/24/23 04:35) Syphilis Antibody Screen (07/24/23 05:02) (ESTUARDO MONTERO MD) Medications Given in ED Current Medications Medications Dose Ordered Sig/Elaina Route Start Time Stop Time Status Last Admin Dose Admin Hydroxyzine Pamoate 50 mg ONCE ONCE PO 07/23/23 19:00 07/23/23 19:01 DC 07/23/23 19:13 50 MG (ESTUARDO MONTERO MD) Vital Signs/I&O 07/23/23 19:00 Temp 37.1 Pulse 102 Resp 18 B/P (MAP) 130/71 (90) Pulse Ox 100 O2 Delivery Room Air (ESTUARDO MONTERO MD) Progress Progress Note : Progress Note Patient seen and evaluated, lying in bed, she is belligerent, she answers most questions, but does not want to list off her medications or diagnoses. Will not contract for safety. She has increased rate of speech, she yells everything that she says. She has somewhat of a flight of ideas. Based on exam and symptoms, work-up initiated including CBC, CMP, alcohol level, drug screen, Tylenol level, salicylate level, EKG, COVID swab, urinalysis. One-to-one sitter ordered. 1451 Labs reviewed. CBC grossly normal. CMP grossly normal. Urinalysis ne gative for infection. Urine drug screen negative. Salicylate negative. Tylenol negative. Alcohol level 73. COVID-negative. Patient is medically cleared. [facility] contacted for evaluation. 1550 patient became belligerent, yelling at staff, and asking for for belongings so that she can leave. I informed patient that she cannot leave, that she needs to be evaluated by mental health. Patient has been unable to contract for safety. Paperwork filled out for involuntary hold. Once I told patient that she is unable to stay, she became calm and agreed to stay and be evaluated. 1750 patient is on the video chat with [facility]. 1840 mental health evaluation completed. They recommend inpatient. Patient currently is agreeable to admission. [facility] states that if she tries to leave, she needs to have an involuntary hold. 1900 I asked patient if she has ever withdrawn from alcohol. She states she has had tremors previously when she stopped alcohol. Denies history of seizures from stopping alcohol. (BARNEY CHAPA APRN) Progress Note : Progress Note 0030: Assumed care of the patient from provider pending placement. 0539: We did get call from [place] unit at [facility] in [facility]. They are requesting TSH, free T4, RPR (our testing is syphilis antibody), folate and B12. We did inform them that these are send outs except for TSH and T4. We will have ordered them and they will be back in 2 days. We did inform [facility] who asked us to go ahead and do testing there is no other places available currently. This was ordered. Patient is awake and has rested peacefully throughout the night. Patient has regular diet ordered. She is requesting coffee which we will get as soon as cafeteria opens. (ESTUARDO MONTERO MD) Progress Note : Time: 16:55 Progress Note 1440 patient spoke with behavioral health, she is able to sign a safety contract this will be placed in her chart she has an appointment with counseling on . She is not suicidal nor homicidal. She states she is ready to go home she will report back to the emergency department if she has any problems or concerns. She has spoken with behavioral health and she has signed a safety contract patient is at this time considered safe for discharge. (ROSA DOOLEY DO) Initial ECG Impression Date: Jul 23, 2023 Initial ECG Impression Time: 13:37 Initial ECG Rate: 91 Initial ECG Rhythm: Normal Sinus Initial ECG Intervals: Normal Initial ECG Impression: Normal Initial ECG Comparisson: Unchanged (BARNEY CHAPA APRN) Departure Impression Primary Impression: Depression Qualified Codes: F32.1 - Major depressive disorder, single episode, moderate Disposition: 01 HOME, SELF-CARE Condition: Improved Departure-Patient Inst. Referrals: [facility] (PCP/Family) Primary Care Physician Patient Instructions: OUTPT MENTAL HEALTH SERVICES BARNEY CHAPA APRN Jul 23, 2023 13:45 ESTUARDO MONTERO MD Jul 24, 2023 05:42 ROSA DOOLEY DO Jul 24, 2023 16:57
[2023-07-23 13:56] LABS: BASOPHILS # (AUTO) 0.1 10^3/uL (0.0-0.1); BASOPHILS % (AUTO) 1 % (0-10); EOSINOPHILS # (AUTO) 0.1 10^3/uL (0.0-0.3); EOSINOPHILS % (AUTO) 1 % (0-10); HEMATOCRIT 44 % (35-52); HEMOGLOBIN 14.9 g/dL (11.5-16.0); LYMPHOCYTES # (AUTO) 2.1 10^3/uL (1.0-4.0); LYMPHOCYTES % (AUTO) 19 % (12-44); MEAN CORPUSCULAR HEMOGLOBIN 32 pg (25-34); MEAN CORPUSCULAR HGB CONC 34 g/dL (32-36); MEAN CORPUSCULAR VOLUME 94 fL (80-99); MEAN PLATELET VOLUME 9.2 fL (9.0-12.2); MONOCYTES # (AUTO) 0.8 10^3/uL (0.0-1.0); MONOCYTES % (AUTO) 7 % (0-12); NEUTROPHILS # (AUTO) 7.7 10^3/uL (1.8-7.8); NEUTROPHILS % (AUTO) 71 % (42-75); PLATELET COUNT 266 10^3/uL (130-400); WHITE BLOOD COUNT 10.9 10^3/uL (4.3-11.0)
[2023-07-23 14:05] LABS: CLARITY,URINE CLEAR; COLOR,URINE YELLOW; GLUCOSE, URINE (UA) NEGATIVE (NEGATIVE); KETONES,URINE NEGATIVE (NEGATIVE); NITRITE,URINE NEGATIVE (NEGATIVE); PH,URINE 5.5 (5-9); PROTEIN,URINE 1+ (NEGATIVE)
[2023-07-23 14:06] LABS: BACTERIA,URINE NEGATIVE /HPF; BILIRUBIN,URINE NEGATIVE (NEGATIVE); LEUKOCYTE ESTERASE ,URINE NEGATIVE (NEGATIVE); SQUAMOUS EPITHELIAL CELL,UR 0-2 /HPF; WBC,URINE RARE /HPF
[2023-07-23 14:07] LABS: AMPHETAMINE SCREEN, URINE NEGATIVE (NEGATIVE); COCAINE SCREEN URINE NEGATIVE (NEGATIVE)
[2023-07-23 14:08] LABS: BARBITURATE SCREEN URINE NEGATIVE (NEGATIVE); CANNABINOID SCREEN, URINE NEGATIVE (NEGATIVE); METHADONE STAT NEGATIVE (NEGATIVE); OPIATE SCREEN URINE NEGATIVE (NEGATIVE); OXYCODONE STAT NEGATIVE (NEGATIVE); PROPOXYPHENE STAT NEGATIVE (NEGATIVE); TRICYCLIC ANTIDEPRESSANTS SCRE NEGATIVE (NEGATIVE)
[2023-07-23 14:09] LABS: ALBUMIN 4.3 GM/DL (3.2-4.5); CHLORIDE 107 MMOL/L (98-107); POTASSIUM 4.8 MMOL/L (3.6-5.0); SODIUM 144 MMOL/L (135-145)
[2023-07-23 14:11] LABS: CALCIUM 9.3 MG/DL (8.5-10.1)
[2023-07-23 14:12] LABS: GLUCOSE 86 MG/DL (70-105); TOTAL PROTEIN 7.8 GM/DL (6.4-8.2)
[2023-07-23 14:13] LABS: CARBON DIOXIDE 24 MMOL/L (21-32)
[2023-07-23 14:14] LABS: BILIRUBIN,TOTAL 0.4 MG/DL (0.1-1.0)
[2023-07-23 14:16] LABS: ALKALINE PHOSPHATASE 76 U/L (40-136); CREATININE SERUM 0.89 MG/DL (0.60-1.30); GFR ESTIMATED 77
[2023-07-23 14:17] LABS: BUN/CREATININE RATIO 10
[2023-07-23 14:18] LABS: SALICYLATE < 5.0 MG/DL (5.0-20.0)
[2023-07-23 14:19] LABS: ALANINE AMINOTRANSFERASE 21 U/L (0-55)
[2023-07-23] MEDS ORDERED: IBUPROFEN 800 MG TABLET PO ONE (14:30)
[2023-07-23 14:31] LABS: ACETAMINOPHEN < 10 UG/ML (10-30)
[2023-07-23] MEDS ORDERED: hydrOXYzine 25 MG CAPSULE PO ONE ×2 (15:15→19:00)
[2023-07-24 05:29] LABS: FREE T4 (FREE THYROXINE) 1.21 NG/DL (0.70-1.48)
[2023-07-24] MEDS ORDERED: ACETAMINOPHEN 500 MG TABLET PO ONE (08:45)
[2023-07-24] MEDS ORDERED: hydrOXYzine 25 MG CAPSULE ONE (11:57)
[2023-07-24 16:58] VITALS: BP 132/84
== END 2023-07-24 16:59 | disposition home or self-care (01) ==
LOC: EDUNIT# 11:55 → ER 11:57
DX: F32.A Depression, unspecified (principal); F17.210 Nicotine dependence, cigarettes, uncomplicated; Z20.822 Contact with and (suspected) exposure to COVID-19
CPT/HCPCS: 80053; 80306; 81000; 82607; 82746; 84439; 84443; 85025; 86780; 87636; 93005; 99284; G0480 ×3; 36415; 80320; 80329

== ENCOUNTER 2023-09-26 04:19 | Emergency (ER) | payer MEDICARE, MEDICAID ==
[~2023-09-26] VITALS: Ht 172.7 cm; Wt 81.6 kg
--- NOTE | 2023-09-26 04:33 | ED GI ---
General Stated Complaint: BLOOD IN STOOL Source of Information: Patient Exam Limitations: No Limitations (JACQUELINE IGLESIAS MD) History of Present Illness Date Seen by Provider: Sep 26, 2023 Time Seen by Provider: 04:32 Initial Comments Patient is a 58-year-old female who presents to the emergency department with a chief complaint of bloody stools, bloody diarrhea. She states that she has had a "virus" since Monday, 3 days. [facility] and was tested for flu and COVID, she was told it was negative. No sick contacts. She lives alone. She has had subjective fever, taking Tylenol. Last dose was around midnight. She had a dose of ibuprofen at [facility]. She states she takes ibuprofen once or twice a day for chronic headaches. She denies alcohol use. No history of prior colonoscopy. She has not on daily aspirin. She has never had any abdominal surgeries. Normally cooks for herself, does not eat out. Has been very nauseated, last Zofran was about 8 hours ago. Denies bloody emesis, coffee-ground emesis. Does endorse dizziness with standing up and moving around. Multiple episodes of watery stool throughout the evening. Has had abdominal cramping. Denies dysuria, urgency or frequency. Last menstrual cycle was approximately 13 years ago. Is on medications for mental health as well as hypertension. Timing/Duration: 4-6 Hours Severity/Quality: Moderate, Cramping Location: Generalized Abdomen Radiation: No Radiation Activities at Onset: None Associated Symptoms: Fever/Chills (Subjective), Nausea/Vomiting (JACQUELINE IGLESIAS MD) Allergies and Home Medications Allergies Coded Allergies: No Known Drug Allergies (Unverified , 10/21/19) Patient Home Medication List Home Medication List Reviewed: Yes (JACQUELINE IGLESIAS MD) Doxazosin Mesylate (Doxazosin Mesylate) 2 Mg Tablet, 4 MG PO HS, (Reported) Entered as Reported by: AINSLEY WEAVER on 04/19/22 1207 Hydrochlorothiazide (Hydrochlorothiazide) 25 Mg Tablet, 25 MG PO DAILY Prescribed by: SHADI HUNT on 04/25/22 1118 Lamotrigine (Lamictal) 200 Mg Tab, 200 MG PO HS, (Reported) Entered as Reported by: AINSLEY WEAVER on 04/19/221206 Lisinopril (Lisinopril) 10 Mg Tablet, 10 MG PO DAILY, (Reported) Entered as Reported by: AINSLEY WEAVER on 04/19/221206 Lorazepam (Ativan) 1 Mg Tablet, 1 MG PO BID, (Reported) Entered as Reported by: AINSLEY WEAVER on 04/19/221206 Lorazepam (Ativan) 1 Mg Tablet, 0.5 MG PO 1200, (Reported) Entered as Reported by: AINSLEY WEAVER on 04/19/221206 Multivitamin/Iron/Folic Acid (Tab-A-Curtis Multivit with Iron) 18 Mg Iron-400 Mcg Tablet, 1 EA NG DAILY@0700 Prescribed by: SHADI HUNT on 04/25/221117 Potassium Chloride (Potassium Chloride) 10 Meq Tab.er.prt, 10 MEQ PO DAILY Prescribed by: SHADI HUNT on 04/25/221117 Sertraline HCl (Sertraline HCl) 100 Mg Tablet, 150 MG PO DAILY, (Reported) Entered as Reported by: AINSLEY WEAVER on 04/19/221206 Trazodone HCl (Trazodone HCl) 150 Mg Tablet, 150 MG PO HS, (Reported) Entered as Reported by: AINSLEY WEAVER on 04/19/221206 Review of Systems Review of Systems Constitutional: see HPI, dizziness, fever, malaise, weakness EENTM: No Symptoms Reported Respiratory: No Symptoms Reported Cardiovascular: No Symptoms Reported Gastrointestinal: Abdominal Pain, Blood Streaked Stools, Diarrhea, Nausea Genitourinary: No Symptoms Reported Musculoskeletal: no symptoms reported Skin: no symptoms reported Psychiatric/Neurological: No Symptoms Reported (JACQUELINE IGLESIAS MD) Past Sqjskna-Vuufum-Esrctg Hx Seasonal Allergies Seasonal Allergies: No (JACQUELINE IGLESIAS MD) Past Medical History Surgery/Hospitalization HX: REFUSED TO TELL MEDICAL AND MENTAL HEALTH HX Surgeries: Yes Adenoidectomy, Tonsillectomy Respiratory: No Cardiac: Yes Hypertension Neurological: No Genitourinary: No Kidney Stones Gastrointestinal: No Musculoskeletal: No Endocrine: No HEENT: Yes Cataract Loss of Vision: Denies Hearing Impairment: Denies Cancer: No Psychosocial: Yes Anxiety, Depression Integumentary: No Blood Disorders: No (JACQUELINE IGLESIAS MD) Family Medical History CAD Under 55 Years Old, Diabetes (JACQUELINE IGLESIAS MD) Physical Exam Vital Signs Vital Signs - First Documented 09/26/23 04:26 Temp 37.7 Pulse 94 Resp 18 B/P (MAP) 147/85 (105) Pulse Ox 97 O2 Delivery Room Air (YANET REYES MD) Vital Signs Capillary Refill : (JACQUELINE IGLESIAS MD) Height/Weight/BMI Height: '" Weight: lbs. oz. kg; 26.00 BMI Method: General Appearance: WD/WN, other (Appears anxious) HEENT: PERRL/EOMI Respiratory: lungs clear, normal breath sounds, no respiratory distress, no accessory muscle use Cardiovascular: regular rate, rhythm (HR90's) Gastrointestinal: soft, abnormal bowel sounds (hypoactive), tenderness (RLQ wi5th voluntary guarding) Rectal: normal exam, heme positive stool, other (watery stool in vault; no palpable masses) Extremities: normal range of motion, normal inspection Neurologic/Psychiatric: alert, oriented x 3, other (anxious) Skin: normal color, warm/dry (JACQUELINE IGLESIAS MD) Focused Exam Lactate Level 09/26/23 07:03: Lactic Acid Level 0.79 (YANET REYES MD) Lactic Acid Level Laboratory Tests Test 09/26/23 07:03 Lactic Acid Level 0.79 MMOL/L (0.50-2.00) (YANET REYES MD) Procedures/Interventions Date of ETT Placement: Apr 16, 2022 Time of ETT Placement: 2326 (JACQUELINE IGLESIAS MD) Progress/Results/Core Measures Results/Orders Lab Results Laboratory Tests Test 09/26/23 04:33 09/26/23 07:03 Range/Units White Blood Count 18.5 H 4.3-11.0 10^3/uL Red Blood Count 4.50 3.80-5.11 10^6/uL Hemoglobin 13.9 11.5-16.0 g/dL Hematocrit 41 35-52 % Mean Corpuscular Volume 92 80-99 fL Mean Corpuscular Hemoglobin 31 25-34 pg Mean Corpuscular Hemoglobin Concent 34 32-36 g/dL Red Cell Distribution Width 12.2 10.0-14.5 % Platelet Count 264 130-400 10^3/uL Mean Platelet Volume 9.2 9.0-12.2 fL Immature Granulocyte % (Auto) 0 % Neutrophils (%) (Auto) 86 H 42-75 % Lymphocytes (%) (Auto) 7 L 12-44 % Monocytes (%) (Auto) 6 0-12 % Eosinophils (%) (Auto) 0 0-10 % Basophils (%) (Auto) 0 0-10 % Neutrophils # (Auto) 15.9 H 1.8-7.8 10^3/uL Lymphocytes # (Auto) 1.2 1.0-4.0 10^3/uL Monocytes # (Auto) 1.2 H 0.0-1.0 10^3/uL Eosinophils # (Auto) 0.0 0.0-0.3 10^3/uL Basophils # (Auto) 0.1 0.0-0.1 10^3/uL Immature Granulocyte # (Auto) 0.1 0.0-0.1 10^3/uL Neutrophils % (Manual) 87 % Lymphocytes % (Manual) 8 % Monocytes % (Manual) 5 % Blood Morphology Comment NORMAL Sodium Level 135 135-145 MMOL/L Potassium Level 3.6 3.6-5.0 MMOL/L Chloride Level 102 98-107 MMOL/L Carbon Dioxide Level 22 21-32 MMOL/L Anion Gap 11 5-14 MMOL/L Blood Urea Nitrogen 8 7-18 MG/DL Creatinine 0.84 0.60-1.30 MG/DL Estimat Glomerular Filtration Rate 82 BUN/Creatinine Ratio 10 Glucose Level 121 H 70-105 MG/DL Calcium Level 8.9 8.5-10.1 MG/DL Corrected Calcium 9.1 8.5-10.1 MG/DL Total Bilirubin 0.7 0.1-1.0 MG/DL Aspartate Amino Transf (AST/SGOT) 10 5-34 U/L Alanine Aminotransferase (ALT/SGPT) 15 0-55 U/L Alkaline Phosphatase 73 40-136 U/L Total Protein 7.0 6.4-8.2 GM/DL Albumin 3.7 3.2-4.5 GM/DL Serum Alcohol < 10 <10 MG/DL Lactic Acid Level 0.79 0.50-2.00 MMOL/L (YANET REYES MD) Micro Results Microbiology 09/26/23 C. difficile GDH Antigen & Toxins - Final, Complete (YANET REYES MD) My Orders Orders - YANET REYES MD Blood Culture (09/26/23 06:42) Vital Signs Adult Sepsis Patie Q15M (09/26/23 06:42) Remove Rings In Anticipation O (09/26/23 06:42) Lactic Acid Analyzer (09/26/23 06:42) Piperacillin/Tazobactam (Piperacillin/Ta (09/26/23 06:45) (YANET REYES MD) Medications Given in ED Current Medications Medications Dose Ordered Sig/Elaina Route Start Time Stop Time Status Last Admin Dose Admin Iohexol 100 ml ONCE ONCE IV 09/26/23 06:00 09/26/23 06:01 DC 09/26/23 05:51 80 ML Ondansetron HCl 4 mg ONCE ONCE IVP 09/26/23 04:45 09/26/23 04:47 DC 09/26/23 05:03 4 MG Piperacillin Sod/ Tazobactam Sod 4.5 gm/Sodium Chloride 100 ml @ 200 mls/hr ONCE ONCE IV 09/26/23 06:45 09/26/23 07:14 DC 09/26/23 07:19 200 MLS/HR Sodium Chloride 100 ml ONCE ONCE IV 09/26/23 06:00 09/26/23 06:01 DC 09/26/23 05:51 80 ML (YANET REYES MD) Vital Signs/I&O 09/26/23 04:26 Temp 37.7 Pulse 94 Resp 18 B/P (MAP) 147/85 (105) Pulse Ox 97 O2 Delivery Room Air (YANET REYES MD) Progress Progress Note : Time: 06:52 Progress Note Care of this patient was assumed from Dr. Iglesias at shift change. Verbal report was received. I was advised fecal specimen had been obtained, was Hemoccult positive, and was sent for culture. Dr. Iglesias had performed the interview and exam and had reviewed labs. I also reviewed and interpreted labs. She has a significant leukocytosis with WBC count of 18.5. CBC was otherwise unremarkable. CMP was unremarkable except for mild hyperglycemia with glucose of 121. Serum alcohol was negative. CT scan had been ordered by Dr. Iglesias. I have reviewed the CT scan and by my interpretation appreciated inflammatory changes of the colon. This is definitely prominent in the proximal colon. The appendix itself does not appear to be involved. CT report was reviewed as noted below. Patient technically meets septic criteria with tachycardia, recent fevers, and leukocytosis. I have informed patient of the findings and strongly advised admission. Patient is adamantly refusing admission because she has a dog at home she needs to take care of and insist there is no one who can help her. I have advised her that she could be returning home with a potentially life-threatening condition. She acknowledges my concerns and insists upon discharge. I am reluctantly discharging her after initial antibiotic therapy with strict return precautions. See discharge instructions for further discussion. (YANET REYES MD) Diagnostic Imaging Diagonstic Imaging: CT Plain Films/CT/US/NM/MRI: abdomen, pelvis Comments NAME: RICHARD DWYER [facility] REC#: [id number] PT STATUS: REG ER : 1965 PHYSICIAN: JACQUELINE IGLESIAS MD ADMIT DATE: 09/26/23/ER Signed Date of Exam:09/26/23 CT ABDOMEN/PELVIS W EXAMINATION: CT abdomen and pelvis with intravenous contrast. TECHNIQUE: Multiple contiguous axial images were obtained through the abdomen and pelvis after the uneventful administration of intravenous contrast. All CT scans use one or more of the following dose optimizing techniques: automated exposure control, MA and/or KvP adjustment based on patient size and exam type or iterative reconstruction. HISTORY: Abdominal pain. Nausea and vomiting. Back pain. COMPARISON: None available. FINDINGS: The heart is unremarkable. The included lung bases are clear. The liver, spleen, pancreas, adrenal glands, and kidneys have a normal appearance. The gallbladder is unremarkable. There is no pathologically enlarged mesenteric or retroperitoneal adenopathy. There is generalized wall thickening and inflammation throughout the colon, greatest in the ascending colon. The appendix is air-filled. There is no free fluid or free air. No acute osseous abnormalities. Ureters and bladder are grossly normal. There is no free air, loculated collection, or adenopathy in the pelvis. IMPRESSION: 1. Pancolitis. No free fluid or free air. No obstruction. Dictated by: Dictated on workstation # [id number] Dict: 09/26/23613 Trans: 09/26/23627 [facility] [id number] Interpreted by: DOMINIQUE SANCHES DO Electronically signed by: DOMINIQUE SANCHES DO 09/26/23627 (YANET REYES MD) Departure Impression Primary Impression: Colitis Additional Impression: Bloody diarrhea Disposition: 01 HOME, SELF-CARE Condition: Stable Departure-Patient Inst. Decision time for Depature: 06:57 (YANET REYES MD) Referrals: [facility] (PCP/Family) Primary Care Physician Patient Instructions: Colitis (DC), Bloody Stools, Adult ED Add. Discharge Instructions: Your CT scan revealed colitis (infection of the colon). Admission to the hospital was recommended. This infection could progress to a life-threatening situation. It is very important that you return to the emergency room or call 911 if you have worsening symptoms or are not rapidly improving on antibiotic therapy. It is very important that you complete the entire course of antibiotics as pre scribed. It is also important that you follow-up promptly in the clinic and review culture results with your clinic provider. Please call today to make arrangements. Start with a clear liquid diet and remain on a clear liquid diet throughout the rest of today. Tomorrow you may gradually start advancing your diet with small quantities of bland food if symptoms are improving. Avoid dairy products or fatty/greasy foods for at least 48 hours after diarrhea symptoms have resolved. You may use Tylenol (acetaminophen) up to 1000 mg every 6 hours as needed for pain. Do not take any NSAID medications such as ibuprofen or naproxen. These may worsen bleeding and irritation of your gastrointestinal tract. Return to the emergency room if you change your mind about admission, have uncontrolled symptoms, or symptoms worsen. Please make arrangements for someone to be able to care for your dog in the event that your health worsens and you require admission to the hospital. Scripts Ciprofloxacin HCl (Ciprofloxacin HCl) 500 Mg Tablet 500 MG PO BID, #20 TAB Prov: YANET REYES MD 09/26/23 Metronidazole (Metronidazole) 500 Mg Tablet 500 MG PO Q6H, #40 TAB Prov: YANET REYES MD 09/26/23 JACQUELINE IGLESIAS MD Sep 26, 2023 04:33 YANET REYES MD Sep 26, 2023 06:57
[2023-09-26] MEDS ORDERED: ONDANSETRON INJECTION 4 MG/2 ML (SDV) IVP ONE (04:45)
[2023-09-26] MEDS ORDERED: LACTATED RINGERS 1,000 ML 1,000 ML IV SCH (04:45)
[2023-09-26 04:53] LABS: BASOPHILS # (AUTO) 0.1 10^3/uL (0.0-0.1); BASOPHILS % (AUTO) 0 % (0-10); EOSINOPHILS % (AUTO) 0 % (0-10); HEMATOCRIT 41 % (35-52); HEMOGLOBIN 13.9 g/dL (11.5-16.0); LYMPHOCYTES # (AUTO) 1.2 10^3/uL (1.0-4.0); LYMPHOCYTES % (AUTO) 7 % (12-44); MEAN CORPUSCULAR HEMOGLOBIN 31 pg (25-34); MEAN CORPUSCULAR HGB CONC 34 g/dL (32-36); MEAN CORPUSCULAR VOLUME 92 fL (80-99); MEAN PLATELET VOLUME 9.2 fL (9.0-12.2); MONOCYTES # (AUTO) 1.2 10^3/uL (0.0-1.0); MONOCYTES % (AUTO) 6 % (0-12); NEUTROPHILS # (AUTO) 15.9 10^3/uL (1.8-7.8); NEUTROPHILS % (AUTO) 86 % (42-75); PLATELET COUNT 264 10^3/uL (130-400); WHITE BLOOD COUNT 18.5 10^3/uL (4.3-11.0)
[2023-09-26 05:06] LABS: ALANINE AMINOTRANSFERASE 15 U/L (0-55); ALBUMIN 3.7 GM/DL (3.2-4.5); ALKALINE PHOSPHATASE 73 U/L (40-136); BILIRUBIN,TOTAL 0.7 MG/DL (0.1-1.0); BUN/CREATININE RATIO 10; CALCIUM 8.9 MG/DL (8.5-10.1); CARBON DIOXIDE 22 MMOL/L (21-32); CHLORIDE 102 MMOL/L (98-107); CREATININE SERUM 0.84 MG/DL (0.60-1.30); GFR ESTIMATED 82; GLUCOSE 121 MG/DL (70-105); POTASSIUM 3.6 MMOL/L (3.6-5.0); SODIUM 135 MMOL/L (135-145)
[2023-09-26 05:34] LABS: LYMPHOCYTES % (MANUAL) 8 %; MONOCYTES % (MANUAL) 5 %; NEUTROPHILS % (MANUAL) 87 %; RBC MORPH NORMAL
[2023-09-26] MEDS ORDERED: IOHEXOL 350 MG/ML 100 ML (OMNIPAQUE 350) VIAL IV ONE (06:00)
[2023-09-26] MEDS ORDERED: NS 100 ML (IVPB) BAG IV ONE (06:00)
[2023-09-26] MEDS ORDERED: HOLD METFORMIN - RECEIVED CONTRAST 20 ML VIAL IV SCH (06:00)
--- NOTE | 2023-09-26 06:17 | Diagnostic Imaging Report ---
EXAMINATION: CT abdomen and pelvis with intravenous contrast. TECHNIQUE: Multiple contiguous axial images were obtained through the abdomen and pelvis after the uneventful administration of intravenous contrast. All CT scans use one or more of the following dose optimizing techniques: automated exposure control, MA and/or KvP adjustment based on patient size and exam type or iterative reconstruction. HISTORY: Abdominal pain. Nausea and vomiting. Back pain. COMPARISON: None available. FINDINGS: The heart is unremarkable. The included lung bases are clear. The liver, spleen, pancreas, adrenal glands, and kidneys have a normal appearance. The gallbladder is unremarkable. There is no pathologically enlarged mesenteric or retroperitoneal adenopathy. There is generalized wall thickening and inflammation throughout the colon, greatest in the ascending colon. The appendix is air-filled. There is no free fluid or free air. No acute osseous abnormalities. Ureters and bladder are grossly normal. There is no free air, loculated collection, or adenopathy in the pelvis. IMPRESSION: 1. Pancolitis. No free fluid or free air. No obstruction. Dictated by: Dictated on workstation # [id number]
[2023-09-26] MEDS ORDERED: PIPERACILLIN/Tazobactam 4.5 GM in NS (IVPB) 100 ML 100 ML IV ONE (06:45)
[2023-09-26] MEDS ORDERED: METR-145 PO (07:59)
[2023-09-26] MEDS ORDERED: CIPR500T5 PO (07:59)
[2023-09-26 08:16] VITALS: BP 131/82
== END 2023-09-26 08:16 | disposition home or self-care (01) ==
LOC: EDUNIT# 04:19 → ER 04:22
DX: K52.9 Noninfective gastroenteritis and colitis, unspecified (principal)
CPT/HCPCS: 74177; 80053; 82274; 83605; 85007; 85027; 87015; 87040; 87045; 87046; 87324; 87328; 87329; 87449; 87899; G0480; 36415; 80320